=== PATIENT | female | born 1970 | race Hispanic/Latino ===

== ENCOUNTER 2017-11-19 18:30 | Emergency (ER) | payer SELFPAY ==
[2017-11-19 19:05] LABS: #Basophils 0.1 thou/uL (0.0-0.2); #Eosinphils 0.4 thou/uL (0.0-0.7); #Lymphocytes 2.6 thou/uL (1.20-3.40); #Monocytes 0.7 thou/uL (0.11-0.59); #Neutrophils 7.2 thou/uL (1.40-6.50); %Basophils 0.9 % (0.0-1.0); %Eosinophils 3.5 % (0.0-10.0); %Monocytes 6.6 % (0.0-10.0); %Neutrophils 65.1 % (42.0-75.0); Mean Corpuscular HGB CONC 34.7 g/dL (32.0-36.0); Mean Corpuscular Hemoglobin 29.6 pg (27.0-31.0); Mean Corpuscular Volume 85.4 fl (81.0-99.0); Platelet Count 279 thou/uL (130-400); RBC Distribution Width 12.6 % (11.5-14.5); Red Blood Cell (RBC) Count 5.06 mill/uL (4.20-5.40)
[2017-11-19] MEDS ORDERED: diphenhydrAMINE 50 MG/ML VIAL ONE (19:15)
[2017-11-19] MEDS ORDERED: Metoclopramide HCl 10 MG/2 ML VIAL ONE (19:15)
[2017-11-19] MEDS ORDERED: Aspirin 325 MG TAB ONE (19:15)
[2017-11-19 19:22] LABS: ALT (SGPT) 19 U/L (8-55); AST (SGOT) 18 U/L (5-34); Alkaline Phosphatase 98 U/L (40-150); Anion Gap 13 mmol/L (10-20); BUN (Urea Nitrogen) 15 mg/dL (7.0-18.7); Bilirubin, Total 0.2 mg/dL (0.2-1.2); CK (CPK) 75 U/L (29-168); Calc. Creatinine Clearance 0 mL/min (70-130); Carbon Dioxide 27 mmol/L (22-29); Chloride 105 mmol/L (98-107); Estimated GFR-MDRD 58; Globulin 3.7 g/dL (2.4-3.5); Glucose 111 mg/dL (70-105); Lipase 44 U/L (8-78); Potassium 3.6 mmol/L (3.5-5.1); Protein, Total 7.7 g/dL (6.0-8.3); Sodium 141 mmol/L (136-145)
[2017-11-19 19:27] LABS: CKMB 1.4 ng/mL (0-6.6)
[2017-11-19 19:36] LABS: Troponin I 0.015 ng/mL (< 0.028)
--- NOTE | 2017-11-19 20:18 | RAD ---
PORTABLE CHEST: 11/19/2017 PROVIDED CLINICAL HISTORY: Chest pain. COMPARISON: 03/13/2017 FINDINGS: The cardiac and mediastinal silhouette are within normal limits. The lungs appear clear. No pleural fluid or pneumothorax apparent. IMPRESSION: No evidence for an acute cardiopulmonary process. POS: [facility]
--- NOTE | 2017-11-19 20:19 | RAD ---
RIGHT HAND RADIOGRAPHS THREE VIEWS: 11/19/2017 PROVIDED CLINICAL HISTORY: Pain. COMPARISON: 02/08/2014 FINDINGS: No evidence for fracture or other acute osseous abnormality. Alignment appears anatomic. Joint spac es appear preserved. IMPRESSION: Unremarkable right hand radiographs. POS: [facility]
[2017-11-19] MEDS ORDERED: Ketorolac Tromethamine 30 MG/ML VIAL ONE (22:26)
[2017-11-19] MEDS ORDERED: HYDROcodone/Acetaminophen 10/325 mg Tablet ONE (23:43)
[2017-11-19] MEDS ORDERED: Dexamethasone 10 MG/ML VIAL ONE (23:44)
== END 2017-11-19 23:55 | disposition home or self-care (01) ==
LOC: ERS 18:30
DX: R07.89 Other chest pain (principal); I10 Essential (primary) hypertension; G43.909 Migraine, unspecified, not intractable, without status migrainosus; F31.9 Bipolar disorder, unspecified; F41.9 Anxiety disorder, unspecified; Z87.891 Personal history of nicotine dependence
CPT/HCPCS: 36415; 71045; 80053; 82553; 83690; 84484; 85025; 93005; 96365; 96375; J1100; J1200; J1885; J2765

== ENCOUNTER 2017-12-20 21:43 | Emergency (ER) | payer SELFPAY ==
[2017-12-20 22:06] LABS: #Basophils 0.1 thou/uL (0.0-0.2); #Eosinphils 0.3 thou/uL (0.0-0.7); #Lymphocytes 2.7 thou/uL (1.20-3.40); #Monocytes 0.7 thou/uL (0.11-0.59); #Neutrophils 4.9 thou/uL (1.40-6.50); %Basophils 0.9 % (0.0-1.0); %Eosinophils 3.5 % (0.0-10.0); %Lymphocytes 31.4 % (21.0-51.0); %Monocytes 7.8 % (0.0-10.0); %Neutrophils 56.3 % (42.0-75.0); Mean Corpuscular HGB CONC 34.5 g/dL (32.0-36.0); Mean Corpuscular Hemoglobin 29.3 pg (27.0-31.0); Mean Corpuscular Volume 84.8 fL (78.0-98.0); Mean Platelet Volume 7.9 fL (7.4-10.4); Platelet Count 255 thou/uL (130-400); RBC Distribution Width 12.4 % (11.5-14.5); Red Blood Cell (RBC) Count 4.77 mill/uL (4.20-5.40); White Blood Cell (WBC) Count 8.7 thou/uL (4.8-10.8)
[2017-12-20] MEDS ORDERED: Nitroglycerin 0.4 MG TAB (25 Tab Bottle) ONE (22:15)
[2017-12-20 22:26] LABS: ALT (SGPT) 26 U/L (8-55); AST (SGOT) 25 U/L (5-34); Albumin 4.3 g/dL (3.5-5.0); Alkaline Phosphatase 97 U/L (40-150); Anion Gap 17 mmol/L (10-20); BUN (Urea Nitrogen) 15 mg/dL (7.0-18.7); Bilirubin, Total 0.3 mg/dL (0.2-1.2); CK (CPK) 209 U/L (29-168); Calc. Creatinine Clearance 0 mL/min (70-130); Calcium 10.5 mg/dL (7.8-10.44); Carbon Dioxide 25 mmol/L (22-29); Chloride 104 mmol/L (98-107); Estimated GFR-MDRD 64; Globulin 3.5 g/dL (2.4-3.5); Glucose 118 mg/dL (70-105); Potassium 3.2 mmol/L (3.5-5.1); Protein, Total 7.8 g/dL (6.0-8.3); Sodium 143 mmol/L (136-145)
--- NOTE | 2017-12-20 22:27 | RAD ---
RADIOGRAPH CHEST 1 VIEW: 12/20/17 HISTORY: 47-year-old female with acute chest pain. FINDINGS: The thoracic aorta is tortuous and ectatic. There is no evidence of air space density, pneumothorax, or pulmonary edema. The lateral costophrenic angles are sharp. There is no cardiomegaly. IMPRESSION: 1) No acute cardiopulmonary findings. 2) Ectasia of thoracic aorta. little craig POS: [facility]
[2017-12-20 22:30] LABS: CKMB 2.9 ng/mL (0-6.6)
[2017-12-21 00:55] LABS: Troponin I Less than 0.010 ng/mL (< 0.028)
== END 2017-12-21 01:10 | disposition home or self-care (01) ==
LOC: ERS 21:43
DX: R07.9 Chest pain, unspecified (principal); I10 Essential (primary) hypertension; E78.5 Hyperlipidemia, unspecified; G43.909 Migraine, unspecified, not intractable, without status migrainosus; F41.9 Anxiety disorder, unspecified; F31.9 Bipolar disorder, unspecified; Z87.891 Personal history of nicotine dependence; Z79.82 Long term (current) use of aspirin
CPT/HCPCS: 36415; 71045; 80053; 82553; 84484; 85025; 93005

== ENCOUNTER 2018-01-18 10:12 | Emergency (ER) | payer SELFPAY ==
[2018-01-18] MEDS ORDERED: Ketorolac Tromethamine 30 MG/ML VIAL ONE (10:34)
[2018-01-18] MEDS ORDERED: Lorazepam 2 MG/ML VIAL ONE (10:34)
[2018-01-18] MEDS ORDERED: Fentanyl 100 MCG/2 ML VIAL ONE (10:34)
== END 2018-01-18 14:55 | disposition home or self-care (01) ==
LOC: ERS 10:12
DX: S39.012A Strain of muscle, fascia and tendon of lower back, initial encounter (principal); I10 Essential (primary) hypertension; Z79.82 Long term (current) use of aspirin; X50.1XXA Overexertion from prolonged static or awkward postures, initial encounter
CPT/HCPCS: 96374; 96375; J1885; J2060; J3010

== ENCOUNTER 2018-01-18 17:04 | Emergency (ER) | payer SELFPAY | END 2018-01-18 18:01 | disposition home or self-care (01) | LOC: ERS 17:04 | DX: S39.012A Strain of muscle, fascia and tendon of lower back, initial encounter (principal); Z02.89 Encounter for other administrative examinations; E78.5 Hyperlipidemia, unspecified; I10 Essential (primary) hypertension; G43.909 Migraine, unspecified, not intractable, without status migrainosus; F41.9 Anxiety disorder, unspecified; F31.9 Bipolar disorder, unspecified; Z87.891 Personal history of nicotine dependence; X58.XXXA Exposure to other specified factors, initial encounter | CPT/HCPCS: 99283 ==

== ENCOUNTER 2018-05-21 21:12 | Inpatient (IN) | payer SELFPAY ==
[~2018-05-21 21:12] MED LIST: ISOVUE-370 76%-LOCM 1 ML ONE
[2018-05-21 21:35] LABS: #Basophils 0.1 thou/uL (0.0-0.2); #Eosinphils 0.2 thou/uL (0.0-0.7); #Lymphocytes 1.6 thou/uL (1.20-3.40); #Monocytes 0.7 thou/uL (0.11-0.59); #Neutrophils 5.2 thou/uL (1.40-6.50); %Basophils 0.9 % (0.0-1.0); %Eosinophils 2.3 % (0.0-10.0); %Lymphocytes 20.4 % (21.0-51.0); %Monocytes 9.4 % (0.0-10.0); Hemoglobin 15.7 g/dL (12.0-16.0); Mean Corpuscular HGB CONC 32.7 g/dL (32.0-36.0); Mean Corpuscular Hemoglobin 28.6 pg (27.0-31.0); Mean Corpuscular Volume 87.4 fL (78.0-98.0); Mean Platelet Volume 8.1 fL (7.4-10.4); Platelet Count 291 thou/uL (130-400); RBC Distribution Width 12.2 % (11.5-14.5); Red Blood Cell (RBC) Count 5.48 mill/uL (4.20-5.40); White Blood Cell (WBC) Count 7.8 thou/uL (4.8-10.8)
--- NOTE | 2018-05-21 21:41 | CT ---
CT HEAD WITHOUT CONTRAST: 05/21/18 Multiple axial tomograms obtained through the head without IV enhancement. INDICATION: Stroke alert, left sided weakness. No mass or edema. No evidence of hemorrhage. There is evidence of mild chronic ischemic white matter change which is more prominent than expected for this patient's age. No evidence of acute cortical infarct. IMPRESSION: No evidence of acute cortical infarct. There are mild chronic ischemic changes. Findings relayed to Dr. Domingo at 9:35 p.m. POS: [facility]
[2018-05-21 21:42] LABS: INR-International Normal Ratio 0.9
[2018-05-21 21:44] LABS: PTT 22.1 SEC (22.9-36.1)
[2018-05-21 21:49] LABS: ALT (SGPT) 21 U/L (8-55); AST (SGOT) 21 U/L (5-34); Albumin 4.2 g/dL (3.5-5.0); Alkaline Phosphatase 97 U/L (40-150); Anion Gap 15 mmol/L (10-20); BUN (Urea Nitrogen) 16 mg/dL (7.0-18.7); Bilirubin, Total 0.3 mg/dL (0.2-1.2); Calc. Creatinine Clearance 0 mL/min (70-130); Calcium 9.9 mg/dL (7.8-10.44); Carbon Dioxide 24 mmol/L (22-29); Chloride 104 mmol/L (98-107); Estimated GFR-MDRD 71; Globulin 3.9 g/dL (2.4-3.5); Glucose 96 mg/dL (70-105); Protein, Total 8.1 g/dL (6.0-8.3); Sodium 139 mmol/L (136-145)
[2018-05-21 21:53] LABS: CKMB 1.9 ng/mL (0-6.6); Troponin I 0.014 ng/mL (< 0.028)
--- NOTE | 2018-05-21 22:04 | CT ---
CTA HEAD: 05/21/18 Multiple axial tomograms obtained through the head following a cerebral angio protocol with multiplan ar reconstructions and 3D postprocessing. INDICATIONS: Stroke alert. Left sided weakness. FINDINGS: The intracranial internal carotid arteries are patent. There is mild atherosclerotic calcifications s een in the cavernous portions of both ICAs. There is mild luminal narrowing in the cavernous portion of the left ICA compared to the right. Both anterior cerebral arteries are patent and symmetric. The M1 segment of both middle cerebral arteries appear patent and symmetric with no focal stenosis of occlusion. M2 and M3 branches appear symmetric. Basilar artery is patent. Posterior cerebrals appear symmetric. IMPRESSION: Atherosclerotic changes in both cavernous ICA with mild luminal narrowing in the cavernous left ICA. Otherwise, no evidence of focal stenosis or occlusion. CTA NECK: Multiple axial tomograms are obtained through the neck following angio protocol with multiplanar dee nstruction and 3D postprocessing. INDICATIONS: Stroke protocol with left sided weakness. No evidence of atherosclerosis or stenosis at the origin of the arch vessels. Both common carotids appear unremarkable. Mild calcified plaque seen at both bulbs. There is no steno sis seen in either internal carotid artery. The vertebral arteries are patent and symmetric. IMPRESSION: Mild atherosclerotic changes at both bulbs. No evidence of significant stenosis. POS: [facility]
--- NOTE | 2018-05-21 22:08 | RAD ---
PORTABLE CHEST: 05/21/18 HISTORY: Possible stroke. Lungs are clear. Heart and mediastinum unremarkable. Vascular markings normal. IMPRESSION: No acute finding. POS: [facility]
[2018-05-21] MEDS ORDERED: Aspirin 325 MG TAB ONE (22:50)
[2018-05-21] MEDS ORDERED: niCARdipine 20MG In NaCl 0 MG/0 ML BAG ONE (22:50)
[2018-05-22] MEDS ORDERED: Aspirin 300 MG Suppository ONE (01:48)
[2018-05-22] MEDS ORDERED: Diabetic Tussin 200 MG/10 ML UDCUP PO PRN (06:57)
[2018-05-22] MEDS ORDERED: Artificial Tears 18 DROP/0.9 ML EA EYE PRN (06:57)
[2018-05-22] MEDS ORDERED: Loratadine 10 MG TAB PO PRN (06:57)
[2018-05-22] MEDS ORDERED: Senokot S 8.6-50 MG TAB PO PRN (06:57)
[2018-05-22] MEDS ORDERED: Loperamide HCl 2 MG CAP PO PRN (06:57)
[2018-05-22] MEDS ORDERED: Ondansetron PF 4 MG/2 ML Vial IVP PRN (06:57)
[2018-05-22] MEDS ORDERED: Eucerin (Mineral Oil/Petrolatum,White) 30 gm Jar TOP PRN (06:57)
[2018-05-22] MEDS ORDERED: Sodium Chloride 0.65% Nasal 44 ML BOT EA NARE PRN (06:57)
[2018-05-22] MEDS ORDERED: Bisacodyl 5 MG TAB PO PRN (06:57)
[2018-05-22] MEDS ORDERED: Ondansetron ODT 4 MG TAB PO PRN (06:57)
[2018-05-22] MEDS ORDERED: Cepastat Lozenges 1 LOZ PO PRN (06:57)
--- NOTE | 2018-05-22 08:14 | CON ---
DATE OF CONSULTATION: 05/22/2018. CONSULTING PHYSICIAN: Hospitalist Service. IMPRESSION: 1. Probable brainstem ischemic event. 2. Hypertension. 3. Tobacco use. PLAN: 1. Aspirin. 2. Statin. 3. MRI of the brain. 4. Echocardiogram. 5. Reassess swallow function. HISTORY OF PRESENT ILLNESS: Ms. Arreaga is a 48-year-old woman who came in with complaints of left-s ided weakness. She also noted that she was having some dizziness and nausea. There was some occipit al headache present as well. Her initial CT scan of the brain did not show any evidence of a hemorrh age. CT angiogram showed no significant carotid or vertebral stenosis. She denies any past history of similar events. She was not taking any medication for her blood pressure. She was markedly hyper tensive. PAST MEDICAL HISTORY: Otherwise, negative. FAMILY HISTORY: Noncontributory. SOCIAL HISTORY: She denies illicit drug use. MEDICATIONS: None. REVIEW OF SYSTEMS: No chest pain, shortness of breath, lateralized numbness, double vision. PHYSICAL EXAMINATION: GENERAL: She is a well-nourished middle-aged woman, in no distress. VITAL SIGNS: Pulse 83 and in sinus rhythm. Diastolic pressures have been running around 110, respir ations 16. HEENT: Her left eye appeared a bit proptotic. She had some ptosis of the right eyelid. There is so me conjunctival injection on the right. Oropharynx is clear. Cranium normocephalic and atraumatic. NECK: Supple. EXTREMITIES: No cyanosis, clubbing or edema. NEUROLOGIC: She was alert and cooperative. Her speech was mildly dysarthric. She had a left facial droop. There is no facial sensation, asymmetry. Eye movements were intact. No nystagmus was noted . Motor exam showed antigravity strength in the left arm and leg, but movements were sluggish. Sens ation was intact in the extremities as well. Gait was not tested. No abnormal movements were seen. LABORATORY STUDIES: Unremarkable CBC and serum chemistry. SUMMARY: This is a middle-aged woman with untreated hypertension, appears to have had a stroke resul ting in left-sided weakness along with some dizziness and nausea. I suspect that she has had a small vessel stroke in the brainstem. We can get her blood pressure under control and start antiplatelet and statin therapy.
[2018-05-22] MEDS: hydrALAZINE 20 MG/ML VIAL SLOW IVP PRN (09:23)
[2018-05-22] MEDS: Lisinopril 20 MG TAB PO SCH ×2 (09:28→20:18)
[2018-05-22] MEDS: Enoxaparin Sodium 40 MG/0.4 ML SYRINGE SC SCH (09:28)
[2018-05-22] MEDS: Divalproex Sodium DR 500 MG TAB PO SCH (09:29)
[2018-05-22] MEDS: Aspirin 325 mg Enteric Coated Tablet PO SCH (09:29)
[2018-05-22] MEDS: Famotidine 20 MG TAB PO SCH ×2 (09:29→20:18)
[2018-05-22] MEDS: Gemfibrozil 600 MG TAB PO SCH ×2 (09:29→17:13)
--- NOTE | 2018-05-22 10:41 | HP ---
PRIMARY CARE PHYSICIAN: [facility]. REASON FOR ADMISSION: Acute left-sided weakness. HISTORY OF PRESENT ILLNESS: A 48-year-old female who has underlying history of hypertension , dyslipidemia, and migraine headache, who presented to emergency room with a complaint of left upper and lower extremity weakness, dizziness, slurred speech which started yesterday and she presented la te in the evening in the emergency room. She was having left upper and lower extremity weakness as w ell as dysarthria when she presented to emergency room, but because of late presentation, she was not a candidate for any intervention. When she presented to emergency room, she was hypertensive. The patient reports that she cannot afford medication and she was not taking medication for the last xiomara ral days. She denies any chest pain, palpitations. She denies any diplopia, but she noticed that he r right eye was difficult to open completely and because of that she was feeling blurred vision and s ometimes double vision. Patient denies any fall. She denies any headaches. She denies any nausea, vomiting. She denies any UTI or upper or lower respiratory symptoms. In the emergency room, the patient had a CT brain which was negative for any acute intracranial proce ss. CT angiography showed cavernous part of internal carotid artery atherosclerotic changes. The pa wei was given aspirin 325 mg. Subsequently, she was admitted to telemetry floor. REVIEW OF SYSTEMS: The following complete review of systems was negative, unless otherwise mentioned in the HPI or below: Constitutional: Weight loss or gain, ability to conduct usual activities. Skin: Rash, itching. Eyes: Double vision, pain. ENT/Mouth: Nose bleeding, neck stiffness, pain, tenderness. Cardiovascular: Palpitations, dyspnea on exertion, orthopnea. Respiratory: Shortness of breath, wheezing, cough, hemoptysis, fever or night sweats. Gastrointestinal: Poor appetite, abdominal pain, heartburn, nausea, vomiting, constipation, or diarr hea. Genitourinary: Urgency, frequency, dysuria, nocturia. Musculoskeletal: Pain, swelling. Neurologic/Psychiatric: Anxiety, depression. Allergy/Immunologic: Skin rash, bleeding tendency. Please see my HPI for pertinent positive and negative. All other review of system reviewed and negat shahla except as mentioned in the HPI. PAST MEDICAL HISTORY: Hypertension, dyslipidemia, migraine headache, medication noncompliance. PAST SURGICAL HISTORY: Left ankle surgery, tubal ligation. PAST PSYCHIATRIC HISTORY: Anxiety, depression, and bipolar disorder. SOCIAL HISTORY: Patient lives at home. She smokes about 1 pack per day. She denies any other illic it drug abuse. FAMILY HISTORY: No family history of coronary artery disease, stroke or cancer. ALLERGIES: No known drug allergy. CURRENT HOME MEDICATIONS: The patient is not taking any prescribed or non-prescribed medication. As per 2017 hospital record, the patient is on aspirin 81 mg p.o. daily, Depakote 500 mg daily, lisinop ril 20 mg b.i.d., sumatriptan 25 mg p.o. daily p.r.n., Lipitor 40 mg p.o. at bedtime, Lopid 600 mg p. o. b.i.d. EMERGENCY ROOM COURSE: Reviewed. PHYSICAL EXAMINATION: VITAL SIGNS: Currently, blood pressure 173/125, pulse 75, respiratory rate 14, temperature 98.1, sat uration 100% on room air, weight 86.1 kilograms. GENERAL: Patient is currently alert, awake, hypertensive, no obvious acute distress. HEENT: Head: Normocephalic, atraumatic. Eyes: Right eye ptosis noted and conjunctival congestion noted. Pupils are round and reactive to light. Extraocular muscle intact. No nystagmus. NECK: Supple, no JVD, no thyromegaly, no carotid bruit. LUNGS: Clear to auscultation without any rhonchi or rales. CARDIAC: S1, S2 regular. No murmur, no gallop, no rub. ABDOMEN: Soft, bowel sounds present, nontender, nondistended. No organomegaly, no mass, no suprapub ic tenderness. EXTREMITIES: Upper extremity, passive movement of all joints are normal. Lower extremity, passive m ovement of all joints are normal. SKIN: No skin rash. HEMATOLOGIC: No lymphadenopathy. PSYCHIATRIC: Normal affect. NEUROLOGIC: The patient is alert, oriented x3. Patient does have left-sided facial droop, left uppe r and lower extremity weakness with power on the left side 4/5 in both upper and lower extremities. Sensation intact. Reflexes symmetrical. Plantar left-sided extensor. SIGNIFICANT LABORATORY DATA AND IMAGING: EKG showing normal sinus rhythm, nonspecific ST-T changes. CT brain based on my review, mild chronic ischemic white matter changes, but no acute infarction not ed. CT angiography showed atherosclerotic changes in the cavernous portion of the internal carotid a rtery as well as extracranial internal carotid artery without any obstruction, atherosclerotic change s noted in the carotid bulb. Chest x-ray based on my review, no acute cardiopulmonary process. CBC: WBC 7.8, hemoglobin 15.7, platelet 291. INR 0.9. BMP: Sodium 139, potassium 4.0, chloride 104, c arbon dioxide 24, BUN 16, creatinine 0.85, glucose 96, calcium 9.9. LFT: AST 21, ALT 21, alkaline p hosphatase is 97, albumin 4.2, CK 75, CK-MB 1.9, troponin 0.014. ASSESSMENT AND PLAN: 1. Acute ischemic cerebrovascular accident, suspecting brainstem ischemic cerebrovascular accident. This patient has ptosis on the right eye as well as left upper and lower extremity weakness as well as dysarthria. Currently, CT brain is not showing any acute process. The patient does have atherosc lerotic changes in carotid bulb bilaterally as well as atherosclerotic changes and mild luminal narro wing in the cavernous portion of the internal carotid artery. Patient will need MRI. We will check lipid profile, homocysteine for risk stratification. The patient has failed swallow evaluation and t hat is why we will continue aspirin rectally. PT, OT and speech therapy will be consulted. Entire s troke team including Neurology will be consulted. We will continue Lipitor and Lopid as per previous home medication if the patient able to take p.o., we will also start lisinopril 20 mg p.o. b.i.d. W e will try to keep her blood pressure around 170 to 180s. We will use p.r.n. basis blood pressure me dication. As the patient is n.p.o. and that is why we will start NS at 50 mL per hour. 2. Hypertension, uncontrolled due to medication noncompliance. Currently, the patient is n.p.o. and that is why we will try to use hydralazine on p.r.n. basis for high blood pressure, otherwise once t he patient is able to take p.o., then we will resume lisinopril 20 mg p.o. b.i.d. 3. Dyslipidemia. Check lipid profile tomorrow and continue Lipitor 40 mg p.o. at bedtime and Lopid 600 mg twice daily based on lipid profile result and the patient able to take p.o. 4. Medication noncompliance. Education given. 5. Tobacco abuse disorder. Smoking cessation counseling given. We will use nicotine patch if neede d while in hospital. 6. Anxiety and depression, bipolar disorder. We will continue Depakote 500 mg p.o. daily. 7. Deep venous thrombosis prophylaxis. Lovenox 40 mg subcu daily. 8. Gastrointestinal prophylaxis, Pepcid 20 mg p.o. b.i.d. 9. CODE STATUS: The patient is FULL CODE. Patient does not have any surrogate decision maker. Disposition plan based on clinical course. We are expecting patient's stay in hospital more than 2 m idnights. Plan of care discussed with the patient in detail.
--- NOTE | 2018-05-22 11:19 | MRI ---
MRI BRAIN WITHOUT CONTRAST: History: TIA Comparison: CT brain prior day. FINDINGS: On the diffusion weighted imaging sequence there is acute infarction within the posterior limb right internal capsule. This is confirmed on the AC map. No other infarction is appreciated. On the susceptibility weighted imaging sequence, there are no abnormal areas of hemorrhage. Flow voids are maintained. No underlying shift. No mass effect. Mild to moderate chronic microvascular ischemic changes. Globes are normal. IMPRESSION: 1. Small acute infarction posterior limb right internal capsule POS: [facility]
[2018-05-22] MEDS: Sodium Chloride 0.9% 1,000 ML IV SCH (12:25)
[2018-05-22] MEDS: Atorvastatin Calcium 40 MG TAB PO SCH (20:18)
[2018-05-23] MEDS: hydrALAZINE 20 MG/ML VIAL SLOW IVP PRN (04:18)
[2018-05-23 04:23] LABS: Anion Gap 16 mmol/L (10-20); BUN (Urea Nitrogen) 17 mg/dL (7.0-18.7); Calc. Creatinine Clearance 128 mL/min (70-130); Calcium 9.7 mg/dL (7.8-10.44); Carbon Dioxide 22 mmol/L (22-29); Cardiac Risk 5.2 (Less than 4.5); Chloride 108 mmol/L (98-107); Cholesterol 206 mg/dl (< 200 Desired); Estimated GFR-MDRD 73; Glucose 98 mg/dL (70-105); HDL Cholesterol 40 mg/dL (>60 Neg Risk); LDL Cholesterol, Calculated 117 mg/dL; Potassium 3.7 mmol/L (3.5-5.1); Sodium 142 mmol/L (136-145); Triglycerides 243 mg/dL (Less than 150)
[2018-05-23] MEDS: Sodium Chloride 0.9% 1,000 ML IV SCH (04:56)
[2018-05-23 05:29] LABS: Band 3 % (5-11); Eosinophils 4 % (0-10); Hemoglobin 13.6 g/dL (12.0-16.0); Lymphocytes 33 % (21-51); MDiff Complete? YES; Mean Corpuscular HGB CONC 33.2 g/dL (32.0-36.0); Mean Corpuscular Hemoglobin 28.8 pg (27.0-31.0); Mean Corpuscular Volume 86.7 fL (78.0-98.0); Mean Platelet Volume 8.4 fL (7.4-10.4); Monocytes 16 % (0-10); Neutrophil 40 % (42-75); Platelet Count 258 thou/uL (130-400); RBC Distribution Width 12.3 % (11.5-14.5); Reactive Lymphocytes 4 % (0-10); Red Blood Cell (RBC) Count 4.72 mill/uL (4.20-5.40); White Blood Cell (WBC) Count 4.8 thou/uL (4.8-10.8)
--- NOTE | 2018-05-23 08:44 | PDOC.PN ---
- Subjective Encounter Start Date: 05/23/18 Encounter Start Time: 07:00 -: old records requested/rev pt now eating soft diet, still has weakness on left side Patient seen and examined. No new complaints. No overnight events - Objective Resuscitation Status: Resuscitation Status FULL:Full Resuscitation MAR Reviewed: Yes Vital Signs & Weight: Vital Signs (12 hours) Temp Pulse Resp BP BP Pulse Ox 05/23/18 04:51 86 149/61 H 05/23/18 03:56 97.7 F 75 16 180/105 H 98 05/22/18 23:15 98.6 F 86 16 170/107 H 98 Weight Weight 217 lb 9.6 oz I&O: 05/22/18 05/23/18 05/24/18 06:59 06:59 06:59 Intake Total 0 1000 Output Total 200 1550 Balance -200 -550 Result Diagrams: 05/23/18 03:22 05/23/18 03:22 Radiology Reviewed by me: Yes (MRI brain reviewed) EKG Reviewed by me: Yes (NSR) Phys Exam - Physical Examination Constitutional: NAD HEENT: PERRLA, moist MMs, sclera anicteric right side ptosis Neck: no JVD, supple Respiratory: no wheezing, no rales, no rhonchi Cardiovascular: RRR, no significant murmur, no rub Gastrointestinal: soft, non-tender, no distention, positive bowel sounds Musculoskeletal: no edema, pulses present Neurological: normal sensation left side 4/5 weakness Lymphatic: no nodes Psychiatric: normal affect, A&O x 3 Skin: no rash, normal turgor Dx/Plan (1) Acute CVA (cerebrovascular accident) Code(s): I63.9 - CEREBRAL INFARCTION, UNSPECIFIED Status: Acute Comment: due to small infraction in right posterior limb of internal capsule, likely ischemic (2) Dyslipidemia Code(s): E78.5 - HYPERLIPIDEMIA, UNSPECIFIED Status: Chronic Comment: on statin therapy (3) HTN (hypertension) Code(s): I10 - ESSENTIAL (PRIMARY) HYPERTENSION Status: Chronic Qualifiers: (4) Noncompliance with medications Code(s): Z91.14 - PATIENT'S OTHER NONCOMPLIANCE WITH MEDICATION REGIMEN Status : Chronic (5) Tobacco abuse Code(s): Z72.0 - TOBACCO USE Status: Chronic Comment: counselled to avoid smoking - Plan cont current plan of care, 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 Review of Systems - Review of Systems Constitutional: negative: fever, chills, sweats, weakness, malaise, other Eyes: negative: Pain, Vision Change, Conjunctivae Inflammation, Eyelid Inflammation, Redness, Other ENT: negative: Ear Pain, Ear Discharge, Nose Pain, Nose Discharge, Nose Congestion, Mouth Pain, Mouth Swelling, Throat Pain, Throat Swelling, Other Respiratory: negative: Cough, Dry, Shortness of Breath, Hemoptysis, SOB with Excertion, Pleuritic Pain, Sputum, Wheezing Cardiovascular: negative: chest pain, palpitations, orthopnea, paroxysmal nocturnal dyspnea, edema, light headedness, other Gastrointestinal: negative: Nausea, Vomiting, Abdominal Pain, Diarrhea, Constipation, Melena, Hematochezia, Other Genitourinary: negative: Dysuria, Frequency, Incontinence, Hematuria, Retention , Other Musculoskeletal: negative: Neck Pain, Shoulder Pain, Arm Pain, Back Pain, Hand Pain, Leg Pain, Foot Pain, Other Skin: negative: Rash, Lesions, Ramses, Bruising, Other Neurological: Weakness. negative: Numbness, Incoordination, Change in Speech, Confusion, Seizures, Other - Medications/Allergies Allergies/Adverse Reactions: Allergies Allergy/AdvReac Type Severity Reaction Status Date / Time No Known Drug Allergies Allergy Verified 05/22/18 05:01 Medications: Current Medications Acetaminophen (Tylenol) 650 mg PO Q4H PRN PRN Reason: Headache/Fever/Mild Pain (1-3) Hydrocodone Bitart/Acetaminophen ([place] 5/325) 1 tab PO Q4H PRN PRN Reason: Moderate Pain (4-6) Artificial Tears (Tears Naturale) 2 drop EA EYE PRN PRN PRN Reason: Dry Eyes Aspirin (Ecotrin) 325 mg PO DAILY [facility] Last Admin: 05/22/18 09:29 Dose: 325 mg Aspirin (Aspirin) 300 mg MO DAILY [facility] Atorvastatin Calcium (Lipitor) 40 mg PO HS [facility] Last Admin: 05/22/18 20:18 Dose: 40 mg Bisacodyl (Dulcolax) 10 mg PO DAILYPRN PRN PRN Reason: Constipation Divalproex Sodium (Depakote) 500 mg PO DAILY [facility] Last Admin: 05/22/18 09:29 Dose: 500 mg Enoxaparin Sodium (Lovenox) 40 mg SC 0900 [facility] Last Admin: 05/22/18 09:28 Dose: 40 mg Famotidine (Pepcid) 20 mg PO BID [facility] Last Admin: 05/22/18 20:18 Dose: 20 mg Gemfibrozil (Lopid) 600 mg PO BID-AC [facility] Last Admin: 05/22/18 17:13 Dose: 600 mg Guaifenesin (Robitussin Sf) 200 mg PO Q4H PRN PRN Reason: Cough Hydralazine HCl (Apresoline) 10 mg SLOW IVP Q4H PRN PRN Reason: SBP > 180 and HR < 70 Last Admin: 05/23/18 04:18 Dose: 10 mg Sodium Chloride (Normal Saline 0.9%) 1,000 mls @ 50 mls/hr IV .Q20H [facility] Last Admin: 05/23/18 04:56 Dose: Not Given Lisinopril (Zestril) 20 mg PO BID [facility] Last Admin: 05/22/18 20:18 Dose: 20 mg Loperamide HCl (Imodium) 2 mg PO PRN PRN PRN Reason: Diarrhea/Loose Stools Loratadine (Claritin) 10 mg PO DAILYPRN PRN PRN Reason: Sinus Symptoms Mineral Oil/White Petrolatum (Eucerin Cream) 0 gm TOP BIDPRN PRN PRN Reason: Dry Skin Ondansetron HCl (Zofran Odt) 4 mg PO Q6H PRN PRN Reason: Nausea/Vomiting Ondansetron HCl (Zofran) 4 mg IVP Q6H PRN PRN Reason: Nausea/Vomiting Senna/Docusate Sodium (Senokot S) 2 tab PO BID PRN PRN Reason: Constipation Sodium Chloride ([place] Nasal [place] 0.65%) 0 ml EA NARE QIDPRN PRN PRN Reason: Nasal Congestion Sodium Chloride (Flush - Normal Saline) 10 ml IVF PRN PRN PRN Reason: Saline Flush Throat Lozenges (Cepastat Lozenges) 1 ronald PO Q2H PRN PRN Reason: Sore Throat Zolpidem Tartrate (Ambien) 5 mg PO HSPRN PRN PRN Reason: Insomnia
[2018-05-23] MEDS: Lisinopril 20 MG TAB PO SCH ×2 (09:46→21:01)
[2018-05-23] MEDS: Gemfibrozil 600 MG TAB PO SCH ×2 (09:47→17:34)
[2018-05-23] MEDS: Famotidine 20 MG TAB PO SCH ×2 (09:47→20:59)
[2018-05-23] MEDS: Aspirin 325 mg Enteric Coated Tablet PO SCH (09:47)
[2018-05-23] MEDS: Divalproex Sodium DR 500 MG TAB PO SCH (09:47)
[2018-05-23] MEDS: Enoxaparin Sodium 40 MG/0.4 ML SYRINGE SC SCH (09:48)
[2018-05-23] MEDS: Aspirin 300 MG Suppository PR SCH (09:48)
[2018-05-23] MEDS: Atorvastatin Calcium 40 MG TAB PO SCH (20:59)
[2018-05-23] MEDS: HYDROcodone/Acetaminophen 5/325 mg Tablet PO PRN (22:07)
[2018-05-23] MEDS: Zolpidem Tartrate 5 MG TAB PO PRN (22:15)
[2018-05-24] MEDS: Sodium Chloride 0.9% 1,000 ML IV SCH ×2 (01:01→20:51)
[2018-05-24] MEDS: Enoxaparin Sodium 40 MG/0.4 ML SYRINGE SC SCH (09:32)
[2018-05-24] MEDS: Gemfibrozil 600 MG TAB PO SCH ×2 (09:32→18:12)
[2018-05-24] MEDS: Aspirin 325 mg Enteric Coated Tablet PO SCH (09:32)
[2018-05-24] MEDS: Lisinopril 20 MG TAB PO SCH ×2 (09:32→20:01)
[2018-05-24] MEDS: Aspirin 300 MG Suppository PR SCH (09:33)
[2018-05-24] MEDS: Divalproex Sodium DR 500 MG TAB PO SCH (09:33)
[2018-05-24] MEDS: Famotidine 20 MG TAB PO SCH ×2 (09:33→20:06)
--- NOTE | 2018-05-24 10:08 | PDOC.PN ---
- Subjective Encounter Start Date: 05/24/18 Encounter Start Time: 07:00 Patient seen and examined. No new complaints. No overnight events - Objective Resuscitation Status: Resuscitation Status FULL:Full Resuscitation MAR Reviewed: Yes Vital Signs & Weight: Vital Signs (12 hours) Temp Pulse Resp BP BP BP Pulse Ox 05/24/18 09:32 184/115 H 05/24/18 07:51 98.1 F 72 16 135/95 H 97 05/24/18 03:44 97.8 F 77 17 157/108 H 95 05/24/18 00:49 95 05/24/18 00:00 98.3 F 71 16 158/113 H 97 Weight Admit Weight 217 lb Weight 212 lb 12.8 oz I&O: 05/23/18 05/24/18 05/25/18 06:59 06:59 06:59 Intake Total 1000 1700 Output Total 1550 1000 Balance -550 700 Result Diagrams: 05/23/18 03:22 05/23/18 03:22 EKG Reviewed by me: Yes (nsr) Phys Exam - Physical Examination Constitutional: NAD HEENT: PERRLA, moist MMs, sclera anicteric Neck: no JVD, supple Respiratory: no wheezing, no rales, no rhonchi Cardiovascular: RRR, no significant murmur, no rub Gastrointestinal: soft, non-tender, no distention, positive bowel sounds Musculoskeletal: no edema, pulses present mild left side weakness Lymphatic: no nodes Psychiatric: normal affect, A&O x 3 Skin: no rash, normal turgor Dx/Plan (1) Acute CVA (cerebrovascular accident) Code(s): I63.9 - CEREBRAL INFARCTION, UNSPECIFIED Status: Acute Comment: due to small infraction in right posterior limb of internal capsule, likely ischemic (2) Dyslipidemia Code(s): E78.5 - HYPERLIPIDEMIA, UNSPECIFIED Status: Chronic Comment: on statin therapy (3) HTN (hypertension) Code(s): I10 - ESSENTIAL (PRIMARY) HYPERTENSION Status: Chronic Qualifiers: (4) Noncompliance with medications Code(s): Z91.14 - PATIENT'S OTHER NONCOMPLIANCE WITH MEDICATION REGIMEN Status : Chronic (5) Tobacco abuse Code(s): Z72.0 - TOBACCO USE Status: Chronic Comment: counselled to avoid smoking - Plan cont current plan of care, plan discussed w/ family, PT/OT, social human services assistants * continue stroke team evaluation * today echo done, result pending * continue PT/OT * discussed with and updated plan * she will benefit from rehab but as she has no insurance, that would be challenging * medication reviewed as below * symptomatic treatment. Review of Systems - Review of Systems Constitutional: negative: fever, chills, sweats, weakness, malaise, other Eyes: negative: Pain, Vision Change, Conjunctivae Inflammation, Eyelid Inflammation, Redness, Other ENT: negative: Ear Pain, Ear Discharge, Nose Pain, Nose Discharge, Nose Congestion, Mouth Pain, Mouth Swelling, Throat Pain, Throat Swelling, Other Respiratory: negative: Cough, Dry, Shortness of Breath, Hemoptysis, SOB with Excertion, Pleuritic Pain, Sputum, Wheezing Cardiovascular: negative: chest pain, palpitations, orthopnea, paroxysmal nocturnal dyspnea, edema, light headedness, other Gastrointestinal: negative: Nausea, Vomiting, Abdominal Pain, Diarrhea, Constipation, Melena, Hematochezia, Other Genitourinary: negative: Dysuria, Frequency, Incontinence, Hematuria, Retention , Other Musculoskeletal: negative: Neck Pain, Shoulder Pain, Arm Pain, Back Pain, Hand Pain, Leg Pain, Foot Pain, Other Skin: negative: Rash, Lesions, Ramses, Bruising, Other Neurological: Weakness. negative: Numbness, Incoordination, Change in Speech, Confusion, Seizures, Other - Medications/Allergies Allergies/Adverse Reactions: Allergies Allergy/AdvReac Type Severity Reaction Status Date / Time No Known Drug Allergies Allergy Verified 05/22/18 05:01 Medications: Current Medications Acetaminophen (Tylenol) 650 mg PO Q4H PRN PRN Reason: Headache/Fever/Mild Pain (1-3) Hydrocodone Bitart/Acetaminophen ([place] 5/325) 1 tab PO Q4H PRN PRN Reason: Moderate Pain (4-6) Last Admin: 05/23/18 22:07 Dose: 1 tab Artificial Tears (Tears Naturale) 2 drop EA EYE PRN PRN PRN Reason: Dry Eyes Aspirin (Ecotrin) 325 mg PO DAILY [facility] Last Admin: 05/24/18 09:32 Dose: 325 mg Aspirin (Aspirin) 300 mg [place] DAILY [facility] Last Admin: 05/24/18 09:33 Dose: Not Given Atorvastatin Calcium (Lipitor) 40 mg PO HS [facility] Last Admin: 05/23/18 20:59 Dose: 40 mg Bisacodyl (Dulcolax) 10 mg PO DAILYPRN PRN PRN Reason: Constipation Divalproex Sodium (Depakote) 500 mg PO DAILY [facility] Last Admin: 05/24/18 09:33 Dose: 500 mg Enoxaparin Sodium (Lovenox) 40 mg SC 0900 [facility] Last Admin: 05/24/18 09:32 Dose: 40 mg Famotidine (Pepcid) 20 mg PO BID [facility] Last Admin: 05/24/18 09:33 Dose: 20 mg Gemfibrozil (Lopid) 600 mg PO BID-AC [facility] Last Admin: 05/24/18 09:32 Dose: 600 mg Guaifenesin (Robitussin Sf) 200 mg PO Q4H PRN PRN Reason: Cough Hydralazine HCl (Apresoline) 10 mg SLOW IVP Q4H PRN PRN Reason: SBP > 180 and HR < 70 Last Admin: 05/23/18 04:18 Dose: 10 mg Sodium Chloride (Normal Saline 0.9%) 1,000 mls @ 50 mls/hr IV .Q20H [facility] Last Admin: 05/24/18 01:01 Dose: Not Given Lisinopril (Zestril) 20 mg PO BID [facility] Last Admin: 05/24/18 09:32 Dose: 20 mg Loperamide HCl (Imodium) 2 mg PO PRN PRN PRN Reason: Diarrhea/Loose Stools Loratadine (Claritin) 10 mg PO DAILYPRN PRN PRN Reason: Sinus Symptoms Mineral Oil/White Petrolatum (Eucerin Cream) 0 gm TOP BIDPRN PRN PRN Reason: Dry Skin Ondansetron HCl (Zofran Odt) 4 mg PO Q6H PRN PRN Reason: Nausea/Vomiting Ondansetron HCl (Zofran) 4 mg IVP Q6H PRN PRN Reason: Nausea/Vomiting Senna/Docusate Sodium (Senokot S) 2 tab PO BID PRN PRN Reason: Constipation Sodium Chloride ([place] Nasal [place] 0.65%) 0 ml EA NARE QIDPRN PRN PRN Reason: Nasal Congestion Sodium Chloride (Flush - Normal Saline) 10 ml IVF PRN PRN PRN Reason: Saline Flush Throat Lozenges (Cepastat Lozenges) 1 ronald PO Q2H PRN PRN Reason: Sore Throat Zolpidem Tartrate (Ambien) 5 mg PO HSPRN PRN PRN Reason: Insomnia Last Admin: 05/23/18 22:15 Dose: 5 mg
[2018-05-24] MEDS: HYDROcodone/Acetaminophen 5/325 mg Tablet PO PRN ×2 (12:15→22:50)
[2018-05-24] MEDS: Atorvastatin Calcium 40 MG TAB PO SCH (20:01)
[2018-05-25] MEDS: Zolpidem Tartrate 5 MG TAB PO PRN (03:21)
--- NOTE | 2018-05-25 08:21 | RAD ---
LEFT KNEE 4 VIEWS: HISTORY: A 48-year-old female with a history of knee injury following a fall onto knees. FINDINGS: No evidence for acute fracture or dislocation. Minimal soft tissue fullness over the prepatellar reg ion superficially. IMPRESSION: No fracture or dislocation. POS: RENATO
--- NOTE | 2018-05-25 08:22 | RAD ---
RIGHT KNEE 4 VIEWS: HISTORY: A 48-year-old female with a history of right knee injury following fall onto knees. FINDINGS: Mild increased soft tissue thickness over the prepatellar region. No evidence for acute fracture or dislocation. IMPRESSION: No fracture or dislocation. POS: NAVARRO
[2018-05-25] MEDS: Lisinopril 20 MG TAB PO SCH ×2 (09:24→20:22)
[2018-05-25] MEDS: Enoxaparin Sodium 40 MG/0.4 ML SYRINGE SC SCH (09:24)
[2018-05-25] MEDS: Famotidine 20 MG TAB PO SCH ×2 (09:25→20:22)
[2018-05-25] MEDS: Aspirin 325 mg Enteric Coated Tablet PO SCH (09:25)
[2018-05-25] MEDS: Divalproex Sodium DR 500 MG TAB PO SCH (09:25)
[2018-05-25] MEDS: Gemfibrozil 600 MG TAB PO SCH ×2 (09:26→15:29)
[2018-05-25] MEDS: Aspirin 300 MG Suppository PR SCH (09:26)
--- NOTE | 2018-05-25 09:41 | PDOC.PN ---
- Subjective Encounter Start Date: 05/25/18 Encounter Start Time: 07:00 pt had fall and bruised knee, but xray negative for fracture, no new problem Patient seen and examined. No overnight events - Objective Resuscitation Status: Resuscitation Status FULL:Full Resuscitation MAR Reviewed: Yes Vital Signs & Weight: Vital Signs (12 hours) Temp Pulse Resp BP BP BP Pulse Ox 05/25/18 09:24 169/95 H 05/25/18 08:00 97.4 F L 76 20 169/95 H 95 05/25/18 03:15 97.5 F L 67 13 170/65 H 96 05/25/18 00:13 173/98 H 05/24/18 23:49 97.8 F 82 18 199/108 H 98 Weight Admit Weight 217 lb Weight 212 lb 1.6 oz I&O: 05/24/18 05/25/18 05/26/18 06:59 06:59 06:59 Intake Total 1700 1700 Output Total 1000 Balance 700 1700 Result Diagrams: 05/23/18 03:22 05/23/18 03:22 Radiology Reviewed by me: Yes (knee xray and echo reviewed) EKG Reviewed by me: Yes (nsr) Phys Exam - Physical Examination Constitutional: NAD HEENT: PERRLA, moist MMs, sclera anicteric Neck: no JVD, supple Respiratory: no wheezing, no rales, no rhonchi Cardiovascular: RRR, no significant murmur, no rub Gastrointestinal: soft, non-tender, no distention, positive bowel sounds Musculoskeletal: no edema, pulses present mild left side weakness, seems improving Lymphatic: no nodes Psychiatric: normal affect, A&O x 3 Skin: no rash, normal turgor Dx/Plan (1) Acute CVA (cerebrovascular accident) Code(s): I63.9 - CEREBRAL INFARCTION, UNSPECIFIED Status: Acute Comment: due to small infraction in right posterior limb of internal capsule, likely ischemic (2) Dyslipidemia Code(s): E78.5 - HYPERLIPIDEMIA, UNSPECIFIED Status: Chronic Comment: on statin therapy (3) HTN (hypertension) Code(s): I10 - ESSENTIAL (PRIMARY) HYPERTENSION Status: Chronic Qualifiers: (4) Noncompliance with medications Code(s): Z91.14 - PATIENT'S OTHER NONCOMPLIANCE WITH MEDICATION REGIMEN Status : Chronic (5) Tobacco abuse Code(s): Z72.0 - TOBACCO USE Status: Chronic Comment: counselled to avoid smoking - Plan cont current plan of care, PT/OT * she has not shown good progress with PT, enough to decide to discharge her home * medication reviewed as below * symptomatic treatment. * continue PT and will reassess tomorrow Review of Systems - Review of Systems ENT: negative: Ear Pain, Ear Discharge, Nose Pain, Nose Discharge, Nose Congestion, Mouth Pain, Mouth Swelling, Throat Pain, Throat Swelling, Other Respiratory: negative: Cough, Dry, Shortness of Breath, Hemoptysis, SOB with Excertion, Pleuritic Pain, Sputum, Wheezing Cardiovascular: negative: chest pain, palpitations, orthopnea, paroxysmal nocturnal dyspnea, edema, light headedness, other Gastrointestinal: negative: Nausea, Vomiting, Abdominal Pain, Diarrhea, Constipation, Melena, Hematochezia, Other Genitourinary: negative: Dysuria, Frequency, Incontinence, Hematuria, Retention , Other Musculoskeletal: negative: Neck Pain, Shoulder Pain, Arm Pain, Back Pain, Hand Pain, Leg Pain, Foot Pain, Other Skin: negative: Rash, Lesions, Ramses, Bruising, Other - Medications/Allergies Allergies/Adverse Reactions: Allergies Allergy/AdvReac Type Severity Reaction Status Date / Time No Known Drug Allergies Allergy Verified 05/22/18 05:01 Medications: Current Medications Acetaminophen (Tylenol) 650 mg PO Q4H PRN PRN Reason: Headache/Fever/Mild Pain (1-3) Hydrocodone Bitart/Acetaminophen ([place] 5/325) 1 tab PO Q4H PRN PRN Reason: Moderate Pain (4-6) Last Admin: 05/24/18 22:50 Dose: 1 tab Artificial Tears (Tears Naturale) 2 drop EA EYE PRN PRN PRN Reason: Dry Eyes Aspirin (Ecotrin) 325 mg PO DAILY [facility] Last Admin: 05/25/18 09:25 Dose: 325 mg Aspirin (Aspirin) 300 mg [place] DAILY [facility] Last Admin: 05/25/18 09:26 Dose: Not Given Atorvastatin Calcium (Lipitor) 40 mg PO HS [facility] Last Admin: 05/24/18 20:01 Dose: 40 mg Bisacodyl (Dulcolax) 10 mg PO DAILYPRN PRN PRN Reason: Constipation Clonidine (Catapres) 0.1 mg PO Q4H PRN PRN Reason: FOR SBP > 180 Divalproex Sodium (Depakote) 500 mg PO DAILY [facility] Last Admin: 05/25/18 09:25 Dose: 500 mg Enoxaparin Sodium (Lovenox) 40 mg SC 0900 [facility] Last Admin: 05/25/18 09:24 Dose: 40 mg Famotidine (Pepcid) 20 mg PO BID [facility] Last Admin: 05/25/18 09:25 Dose: 20 mg Gemfibrozil (Lopid) 600 mg PO BID-AC [facility] Last Admin: 05/25/18 09:26 Dose: 600 mg Guaifenesin (Robitussin Sf) 200 mg PO Q4H PRN PRN Reason: Cough Hydralazine HCl (Apresoline) 10 mg SLOW IVP Q4H PRN PRN Reason: SBP > 180 and HR < 70 Last Admin: 05/23/18 04:18 Dose: 10 mg Sodium Chloride (Normal Saline 0.9%) 1,000 mls @ 50 mls/hr IV .Q20H [facility] Last Admin: 05/24/18 20:51 Dose: Not Given Lisinopril (Zestril) 20 mg PO BID [facility] Last Admin: 05/25/18 09:24 Dose: 20 mg Loperamide HCl (Imodium) 2 mg PO PRN PRN PRN Reason: Diarrhea/Loose Stools Loratadine (Claritin) 10 mg PO DAILYPRN PRN PRN Reason: Sinus Symptoms Last Admin: 05/24/18 12:15 Dose: 10 mg Mineral Oil/White Petrolatum (Eucerin Cream) 0 gm TOP BIDPRN PRN PRN Reason: Dry Skin Ondansetron HCl (Zofran Odt) 4 mg PO Q6H PRN PRN Reason: Nausea/Vomiting Ondansetron HCl (Zofran) 4 mg IVP Q6H PRN PRN Reason: Nausea/Vomiting Senna/Docusate Sodium (Senokot S) 2 tab PO BID PRN PRN Reason: Constipation Sodium Chloride ([place] Nasal [place] 0.65%) 0 ml EA NARE QIDPRN PRN PRN Reason: Nasal Congestion Sodium Chloride (Flush - Normal Saline) 10 ml IVF PRN PRN PRN Reason: Saline Flush Throat Lozenges (Cepastat Lozenges) 1 ronald PO Q2H PRN PRN Reason: Sore Throat Zolpidem Tartrate (Ambien) 5 mg PO HSPRN PRN PRN Reason: Insomnia Last Admin: 05/25/18 03:21 Dose: 5 mg
[2018-05-25] MEDS ORDERED: Amlodipine 5 MG TAB PO SCH ×2 (11:45→16:30)
[2018-05-25] MEDS: cloNIDine 0.1 MG TAB PO PRN ×2 (15:29→20:24)
[2018-05-25] MEDS: Atorvastatin Calcium 40 MG TAB PO SCH (20:22)
[2018-05-26] MEDS: Acetaminophen 325 MG TAB PO PRN (04:34)
[2018-05-26] MEDS ORDERED: Amlodipine 5 MG TAB PO SCH (09:00)
[2018-05-26] MEDS: Famotidine 20 MG TAB PO SCH ×2 (09:32→21:03)
[2018-05-26] MEDS: Lisinopril 20 MG TAB PO SCH ×2 (09:32→20:54)
[2018-05-26] MEDS: Divalproex Sodium DR 500 MG TAB PO SCH (09:32)
[2018-05-26] MEDS: Enoxaparin Sodium 40 MG/0.4 ML SYRINGE SC SCH (09:32)
[2018-05-26] MEDS: Gemfibrozil 600 MG TAB PO SCH (09:32)
[2018-05-26] MEDS: Aspirin 325 mg Enteric Coated Tablet PO SCH (09:33)
[2018-05-26] MEDS: Amlodipine 10 MG TAB PO SCH (09:33)
--- NOTE | 2018-05-26 13:41 | PDOC.PN ---
- Subjective Encounter Start Date: 05/26/18 Encounter Start Time: 10:30 Patient seen and examined. No new complaints. No overnight events - Objective Resuscitation Status: Resuscitation Status FULL:Full Resuscitation MAR Reviewed: Yes Vital Signs & Weight: Vital Signs (12 hours) Temp Pulse Resp BP BP BP Pulse Ox 05/26/18 11:43 97.6 F 69 16 168/111 H 95 05/26/18 09:33 61 05/26/18 09:32 185/104 H 05/26/18 08:00 97 05/26/18 07:38 97.9 F 61 16 164/109 H 97 05/26/18 04:00 97.6 F 81 12 137/93 H 98 Weight Admit Weight 217 lb Weight 217 lb 11.2 oz I&O: 05/25/18 05/26/18 05/27/18 06:59 06:59 06:59 Intake Total 1700 850 Balance 1700 850 Result Diagrams: 05/23/18 03:22 05/23/18 03:22 EKG Reviewed by me: Yes (nsr) Phys Exam - Physical Examination Constitutional: NAD HEENT: PERRLA, moist MMs, sclera anicteric Neck: no JVD, supple Respiratory: no wheezing, no rales, no rhonchi Cardiovascular: RRR, no significant murmur, no rub Gastrointestinal: soft, non-tender, no distention, positive bowel sounds Musculoskeletal: no edema, pulses present left side mild weakness Lymphatic: no nodes Psychiatric: normal affect, A&O x 3 Skin: no rash, normal turgor Dx/Plan (1) Acute CVA (cerebrovascular accident) Code(s): I63.9 - CEREBRAL INFARCTION, UNSPECIFIED Status: Acute Comment: due to small infraction in right posterior limb of internal capsule, likely ischemic (2) Dyslipidemia Code(s): E78.5 - HYPERLIPIDEMIA, UNSPECIFIED Status: Chronic Comment: on statin therapy (3) HTN (hypertension) Code(s): I10 - ESSENTIAL (PRIMARY) HYPERTENSION Status: Chronic Qualifiers: (4) Noncompliance with medications Code(s): Z91.14 - PATIENT'S OTHER NONCOMPLIANCE WITH MEDICATION REGIMEN Status : Chronic (5) Tobacco abuse Code(s): Z72.0 - TOBACCO USE Status: Chronic Comment: counselled to avoid smoking - Plan cont current plan of care, PT/OT * medication reviewed as below * symptomatic treatment * continue current treatment plan * rehab is best option * concerned about readmission with home discharge, pt has no insurance, so it is challenging to find rehab. * dc lopid * amlodipine 10 mg daily Review of Systems - Review of Systems ENT: negative: Ear Pain, Ear Discharge, Nose Pain, Nose Discharge, Nose Congestion, Mouth Pain, Mouth Swelling, Throat Pain, Throat Swelling, Other Respiratory: negative: Cough, Dry, Shortness of Breath, Hemoptysis, SOB with Excertion, Pleuritic Pain, Sputum, Wheezing Cardiovascular: negative: chest pain, palpitations, orthopnea, paroxysmal nocturnal dyspnea, edema, light headedness, other Gastrointestinal: negative: Nausea, Vomiting, Abdominal Pain, Diarrhea, Constipation, Melena, Hematochezia, Other Genitourinary: negative: Dysuria, Frequency, Incontinence, Hematuria, Retention , Other Musculoskeletal: negative: Neck Pain, Shoulder Pain, Arm Pain, Back Pain, Hand Pain, Leg Pain, Foot Pain, Other Skin: negative: Rash, Lesions, Ramses, Bruising, Other Neurological: Weakness. negative: Numbness, Incoordination, Change in Speech, Confusion, Seizures, Other - Medications/Allergies Allergies/Adverse Reactions: Allergies Allergy/AdvReac Type Severity Reaction Status Date / Time No Known Drug Allergies Allergy Verified 05/22/18 05:01 Medications: Current Medications Acetaminophen (Tylenol) 650 mg PO Q4H PRN PRN Reason: Headache/Fever/Mild Pain (1-3) Last Admin: 05/26/18 04:34 Dose: 650 mg Hydrocodone Bitart/Acetaminophen ([place] 5/325) 1 tab PO Q4H PRN PRN Reason: Moderate Pain (4-6) Last Admin: 05/24/18 22:50 Dose: 1 tab Amlodipine Besylate (Norvasc) 10 mg PO DAILY [facility] Last Admin: 05/26/18 09:33 Dose: 10 mg Artificial Tears (Tears Naturale) 2 drop EA EYE PRN PRN PRN Reason: Dry Eyes Aspirin (Ecotrin) 325 mg PO DAILY [facility] Last Admin: 05/26/18 09:33 Dose: 325 mg Atorvastatin Calcium (Lipitor) 40 mg PO HS [facility] Last Admin: 05/25/18 20:22 Dose: 40 mg Bisacodyl (Dulcolax) 10 mg PO DAILYPRN PRN PRN Reason: Constipation Clonidine (Catapres) 0.1 mg PO Q4H PRN PRN Reason: FOR SBP > 180 Last Admin: 05/25/18 20:24 Dose: 0.1 mg Divalproex Sodium (Depakote) 500 mg PO DAILY [facility] Last Admin: 05/26/18 09:32 Dose: 500 mg Enoxaparin Sodium (Lovenox) 40 mg SC 0900 [facility] Last Admin: 05/26/18 09:32 Dose: 40 mg Famotidine (Pepcid) 20 mg PO BID [facility] Last Admin: 05/26/18 09:32 Dose: 20 mg Gemfibrozil (Lopid) 600 mg PO BID[facility] Last Admin: 05/26/18 09:32 Dose: 600 mg Guaifenesin (Robitussin Sf) 200 mg PO Q4H PRN PRN Reason: Cough Hydralazine HCl (Apresoline) 10 mg SLOW IVP Q4H PRN PRN Reason: SBP > 180 and HR < 70 Last Admin: 05/23/18 04:18 Dose: 10 mg Lisinopril (Zestril) 20 mg PO BID [facility] Last Admin: 05/26/18 09:32 Dose: 20 mg Loperamide HCl (Imodium) 2 mg PO PRN PRN PRN Reason: Diarrhea/Loose Stools Loratadine (Claritin) 10 mg PO DAILYPRN PRN PRN Reason: Sinus Symptoms Last Admin: 05/24/18 12:15 Dose: 10 mg Mineral Oil/White Petrolatum (Eucerin Cream) 0 gm TOP BIDPRN PRN PRN Reason: Dry Skin Ondansetron HCl (Zofran Odt) 4 mg PO Q6H PRN PRN Reason: Nausea/Vomiting Ondansetron HCl (Zofran) 4 mg IVP Q6H PRN PRN Reason: Nausea/Vomiting Senna/Docusate Sodium (Senokot S) 2 tab PO BID PRN PRN Reason: Constipation Sodium Chloride ([place] Nasal [place] 0.65%) 0 ml EA NARE QIDPRN PRN PRN Reason: Nasal Congestion Sodium Chloride (Flush - Normal Saline) 10 ml IVF PRN PRN PRN Reason: Saline Flush Throat Lozenges (Cepastat Lozenges) 1 ronald PO Q2H PRN PRN Reason: Sore Throat Zolpidem Tartrate (Ambien) 5 mg PO HSPRN PRN PRN Reason: Insomnia Last Admin: 05/25/18 03:21 Dose: 5 mg
[2018-05-26] MEDS: HYDROcodone/Acetaminophen 5/325 mg Tablet PO PRN ×2 (16:20→21:03)
[2018-05-26] MEDS: Atorvastatin Calcium 40 MG TAB PO SCH (21:02)
[2018-05-27] MEDS: Zolpidem Tartrate 5 MG TAB PO PRN ×2 (01:06→22:38)
[2018-05-27] MEDS: Acetaminophen 325 MG TAB PO PRN (06:46)
[2018-05-27] MEDS: Divalproex Sodium DR 500 MG TAB PO SCH (11:06)
[2018-05-27] MEDS: Aspirin 325 mg Enteric Coated Tablet PO SCH (11:06)
[2018-05-27] MEDS: Famotidine 20 MG TAB PO SCH ×2 (11:06→22:39)
[2018-05-27] MEDS: Enoxaparin Sodium 40 MG/0.4 ML SYRINGE SC SCH (11:06)
[2018-05-27] MEDS: Lisinopril 20 MG TAB PO SCH ×2 (11:06→22:39)
[2018-05-27] MEDS: Amlodipine 10 MG TAB PO SCH (11:07)
[2018-05-27] MEDS: HYDROcodone/Acetaminophen 5/325 mg Tablet PO PRN ×2 (11:14→20:05)
--- NOTE | 2018-05-27 18:56 | PDOC.PN ---
- Subjective Encounter Start Date: 05/27/18 Encounter Start Time: 18:50 Subjective: f/u for CVA with residual L-sided weakness. Likely will transition home -: with home health due to funding issues. Working with PT. - Objective Resuscitation Status - Order Detail: 05/27/18 11:52 Resuscitation Status Routine Resuscitation Status: FULL: Full Resuscitation Discussed with: Per Physician Documentation MAR Reviewed: Yes Vital Signs & Weight: Vital Signs (12 hours) Temp Pulse Pulse Pulse Resp BP BP 05/27/18 15:45 97.8 F 69 16 05/27/18 11:36 97.6 F 69 16 05/27/18 11:07 68 05/27/18 11:06 176/93 H 05/27/18 09:30 76 69 147/100 H 05/27/18 08:06 05/27/18 07:49 97.5 F L 68 14 BP BP Pulse Ox 05/27/18 15:45 175/96 H 97 05/27/18 11:36 143/101 H 98 05/27/18 11:07 05/27/18 11:06 05/27/18 09:30 172/102 H 05/27/18 08:06 98 05/27/18 07:49 164/91 H 96 Weight Admit Weight 217 lb Weight 216 lb 14.4 oz I&O: 05/26/18 05/27/18 05/28/18 06:59 06:59 06:59 Intake Total 850 1000 Balance 850 1000 Result Diagrams: 05/23/18 03:22 05/23/18 03:22 Radiology Reviewed by me: Yes (2D echo - EF 60-65%, diast dysfxn; MRI brain - post limb R int capsule CVA) EKG Reviewed by me: Yes (Tele - SR) Phys Exam - Physical Examination Constitutional: NAD + dysconjugate gaze HEENT: PERRLA, sclera anicteric, oral pharynx no lesions Neck: no nodes, no JVD, supple, full ROM Respiratory: no wheezing, no rales, no rhonchi, clear to auscultation bilateral S1, S2 Cardiovascular: RRR, no significant murmur, no rub, gallop Gastrointestinal: soft, non-tender, no distention, positive bowel sounds Musculoskeletal: no edema, pulses present L-sided weakness Neurological: moves all 4 limbs Psychiatric: A&O x 3 Skin: no rash, normal turgor, cap refill <2 seconds Dx/Plan (1) Acute CVA (cerebrovascular accident) Code(s): I63.9 - CEREBRAL INFARCTION, UNSPECIFIED Status: Acute Comment: due to small infraction in right posterior limb of internal capsule, continue ASA 325mg daily, Lipitor (2) Dyslipidemia Code(s): E78.5 - HYPERLIPIDEMIA, UNSPECIFIED Status: Chronic Comment: Continue Lipitor 40mg daily (3) HTN (hypertension) Code(s): I10 - ESSENTIAL (PRIMARY) HYPERTENSION Status: Chronic Qualifiers: Comment: Labile, continue Amlodipine, Lisinopril, may need additional titration for optimal control (4) Noncompliance with medications Code(s): Z91.14 - PATIENT'S OTHER NONCOMPLIANCE WITH MEDICATION REGIMEN Status : Chronic (5) Tobacco abuse Code(s): Z72.0 - TOBACCO USE Status: Chronic Comment: Tobacco cessation counseling - Plan PT/OT, social worker, out of bed/ambulate, DVT proph w/SCDs Stable currently -: Continue ASA, Lipitor -: Continue Amlodipine/Lisinopril -: OOB/PT quad cane for ambulation -: services for d/c * Likely home in 24-48h
[2018-05-27] MEDS: Atorvastatin Calcium 40 MG TAB PO SCH (22:39)
[2018-05-28] MEDS: Acetaminophen 325 MG TAB PO PRN (02:47)
[2018-05-28] MEDS: Lisinopril 20 MG TAB PO SCH ×2 (10:04→21:34)
[2018-05-28] MEDS: Aspirin 325 mg Enteric Coated Tablet PO SCH (10:05)
[2018-05-28] MEDS: Amlodipine 10 MG TAB PO SCH (10:05)
[2018-05-28] MEDS: Famotidine 20 MG TAB PO SCH ×2 (10:05→21:35)
[2018-05-28] MEDS: Divalproex Sodium DR 500 MG TAB PO SCH (10:05)
[2018-05-28] MEDS: Enoxaparin Sodium 40 MG/0.4 ML SYRINGE SC SCH (10:18)
--- NOTE | 2018-05-28 10:54 | PDOC.PN ---
- Subjective Encounter Start Date: 05/28/18 Encounter Start Time: 10:45 Subjective: f/u CVA with residual L-sided weakness. Still with some weakness, leg pain. -: Appetite ok. - Objective Resuscitation Status - Order Detail: 05/27/18 11:52 Resuscitation Status Routine Resuscitation Status: FULL: Full Resuscitation Discussed with: Per Physician Documentation MAR Reviewed: Yes Vital Signs & Weight: Vital Signs (12 hours) Temp Pulse Resp BP BP BP Pulse Ox 05/28/18 10:05 69 148/86 H 05/28/18 10:04 148/86 H 05/28/18 08:45 148/86 H 05/28/18 08:00 98.4 F 69 16 98 05/28/18 04:30 164/88 H 05/28/18 04:00 97.6 F 88 15 126/104 H 95 05/28/18 00:00 97.7 F 69 12 167/111 H 99 Weight Admit Weight 217 lb Weight 215 lb I&O: 05/27/18 05/28/18 05/29/18 06:59 06:59 06:59 Intake Total 1000 237 Balance 1000 237 Result Diagrams: 05/23/18 03:22 05/23/18 03:22 EKG Reviewed by me: Yes (Tele - SR) Phys Exam - Physical Examination Constitutional: NAD HEENT: PERRLA, sclera anicteric, oral pharynx no lesions Neck: no nodes, no JVD, supple, full ROM Respiratory: no wheezing, no rales, no rhonchi, clear to auscultation bilateral S1, S2 Cardiovascular: RRR, no significant murmur, no rub, gallop Gastrointestinal: soft, non-tender, no distention, positive bowel sounds Musculoskeletal: no edema, pulses present L-sided weakness Neurological: moves all 4 limbs Psychiatric: A&O x 3 Skin: normal turgor, cap refill <2 seconds Dx/Plan (1) Acute CVA (cerebrovascular accident) Code(s): I63.9 - CEREBRAL INFARCTION, UNSPECIFIED Status: Acute Comment: Infraction in right posterior limb of internal capsule, continue ASA 325mg daily , Lipitor, PT for mobilization (2) Dyslipidemia Code(s): E78.5 - HYPERLIPIDEMIA, UNSPECIFIED Status: Chronic Comment: Continue Lipitor 40mg daily (3) HTN (hypertension) Code(s): I10 - ESSENTIAL (PRIMARY) HYPERTENSION Status: Chronic Qualifiers: Comment: Labile, continue Amlodipine, Lisinopril, may need additional titration for optimal control (4) Noncompliance with medications Code(s): Z91.14 - PATIENT'S OTHER NONCOMPLIANCE WITH MEDICATION REGIMEN Status : Chronic (5) Tobacco abuse Code(s): Z72.0 - TOBACCO USE Status: Chronic Comment: Tobacco cessation counseling - Plan PT/OT, rn social services, out of bed/ambulate, DVT proph w/SCDs Stable currently -: Continue ASA 325mg daily -: Continue Lipitor -: CM for HH services, PT/OT/ST options -: OOB/ambulate * .
[2018-05-28] MEDS: HYDROcodone/Acetaminophen 5/325 mg Tablet PO PRN ×2 (12:27→17:16)
[2018-05-28 13:52] VITALS: BMI 29.1
[2018-05-28] MEDS: Atorvastatin Calcium 40 MG TAB PO SCH (21:35)
[2018-05-28] MEDS: Zolpidem Tartrate 5 MG TAB PO PRN (23:08)
[2018-05-29] MEDS: HYDROcodone/Acetaminophen 5/325 mg Tablet PO PRN ×3 (07:20→21:31)
[2018-05-29] MEDS: Acetaminophen 325 MG TAB PO PRN (09:08)
[2018-05-29] MEDS: Divalproex Sodium DR 500 MG TAB PO SCH (09:08)
[2018-05-29] MEDS: Amlodipine 10 MG TAB PO SCH (09:08)
[2018-05-29] MEDS: Famotidine 20 MG TAB PO SCH ×2 (09:08→21:31)
[2018-05-29] MEDS: Lisinopril 20 MG TAB PO SCH ×2 (09:08→21:31)
[2018-05-29] MEDS: Enoxaparin Sodium 40 MG/0.4 ML SYRINGE SC SCH (09:09)
[2018-05-29] MEDS: Aspirin 325 mg Enteric Coated Tablet PO SCH (09:09)
--- NOTE | 2018-05-29 11:26 | PDOC.PN ---
- Subjective Encounter Start Date: 05/29/18 Encounter Start Time: 11:15 Subjective: f/u for CVA with residual L-sided weakness and dysarthria. Overall -: feels ok. Ambulates short distances in room. - Objective Resuscitation Status - Order Detail: 05/27/18 11:52 Resuscitation Status Routine Resuscitation Status: FULL: Full Resuscitation Discussed with: Per Physician Documentation MAR Reviewed: Yes Vital Signs & Weight: Vital Signs (12 hours) Temp Pulse Resp BP Pulse Ox 05/29/18 07:48 98.1 F 77 16 145/104 H 99 05/29/18 03:55 97.7 F 70 16 142/98 H 97 05/29/18 00:00 98.3 F 68 20 139/84 98 Weight Admit Weight 217 lb Weight 218 lb I&O: 05/28/18 05/29/18 05/30/18 06:59 06:59 06:59 Intake Total 237 1240 Balance 237 1240 Result Diagrams: 05/23/18 03:22 05/23/18 03:22 EKG Reviewed by me: Yes (Tele - SR) Phys Exam - Physical Examination Constitutional: NAD HEENT: PERRLA, sclera anicteric, oral pharynx no lesions Neck: no nodes, no JVD, supple, full ROM Respiratory: no wheezing, no rales, no rhonchi, clear to auscultation bilateral S1, S2 Cardiovascular: RRR, no significant murmur, no rub, gallop Gastrointestinal: soft, non-tender, no distention, positive bowel sounds mild TTP in the calf region, no palpable mass, erythema or edema Musculoskeletal: no edema, pulses present L-sided weakness Neurological: normal sensation, moves all 4 limbs Psychiatric: A&O x 3 Skin: normal turgor, cap refill <2 seconds Dx/Plan (1) Acute CVA (cerebrovascular accident) Code(s): I63.9 - CEREBRAL INFARCTION, UNSPECIFIED Status: Acute Comment: Infraction in right posterior limb of internal capsule, continue ASA 325mg daily , Lipitor, PT for mobilization, HH with PT at d/c (2) Dyslipidemia Code(s): E78.5 - HYPERLIPIDEMIA, UNSPECIFIED Status: Chronic Comment: Continue Lipitor 40mg daily (3) HTN (hypertension) Code(s): I10 - ESSENTIAL (PRIMARY) HYPERTENSION Status: Chronic Qualifiers: Comment: Labile, continue Amlodipine, Lisinopril, may need additional titration for optimal control (4) Noncompliance with medications Code(s): Z91.14 - PATIENT'S OTHER NONCOMPLIANCE WITH MEDICATION REGIMEN Status : Chronic (5) Tobacco abuse Code(s): Z72.0 - TOBACCO USE Status: Chronic Comment: Tobacco cessation counseling - Plan PT/OT, social work coordinator, out of bed/ambulate, DVT proph w/SCDs Stable currently -: Continue ASA/Lipitor -: CM assisting with HH options -: PT for mobilization -: Likely home in am 05/30/18 * .
[2018-05-29] MEDS: Atorvastatin Calcium 40 MG TAB PO SCH (21:31)
[2018-05-30] MEDS: HYDROcodone/Acetaminophen 5/325 mg Tablet PO PRN (03:57)
[2018-05-30 04:21] VITALS: TEMP 97.9
[2018-05-30] MEDS: Aspirin 325 mg Enteric Coated Tablet PO SCH (08:27)
[2018-05-30] MEDS: Amlodipine 10 MG TAB PO SCH (08:27)
[2018-05-30] MEDS: Enoxaparin Sodium 40 MG/0.4 ML SYRINGE SC SCH (08:28)
[2018-05-30] MEDS: Lisinopril 20 MG TAB PO SCH (08:28)
[2018-05-30] MEDS: Famotidine 20 MG TAB PO SCH (08:28)
[2018-05-30] MEDS: Divalproex Sodium DR 500 MG TAB PO SCH (08:28)
[2018-05-30 11:42] VITALS: BP 152/97
[2018-05-30] MEDS: Acetaminophen 325 MG TAB PO PRN (13:45)
--- NOTE | 2018-05-31 15:29 | EKG ---
Test Reason : Blood Pressure : / mmHG Vent. Rate : 073 BPM Atrial Rate : 073 BPM P-R Int : 162 ms QRS Dur : 078 ms QT Int : 410 ms P-R-T Axes : 028 -20 027 degrees QTc Int : 451 ms Normal sinus rhythm Septal infarct , age undetermined Abnormal ECG Confirmed by CARLY ESPINOZA DO ([id number]), graphics editor JANETH AKHTAR ([id number]) on 05/31/2018 3:28:42 PM Referred By: OLGA Confirmed By:CARLY ESPINOZA DO
== END 2018-05-30 14:25 | disposition home health service (06) | DRG 65 ==
LOC: ERS 21:12 → 2SE 05-22 00:30
PROVIDERS: ADMIT Internal Medicine; ATTEND Internal Medicine
DX: I63.9 Cerebral infarction, unspecified (principal); G81.94 Hemiplegia, unspecified affecting left nondominant side; R47.1 Dysarthria and anarthria; I10 Essential (primary) hypertension; E78.5 Hyperlipidemia, unspecified; G43.909 Migraine, unspecified, not intractable, without status migrainosus; F41.9 Anxiety disorder, unspecified; F31.9 Bipolar disorder, unspecified; F17.210 Nicotine dependence, cigarettes, uncomplicated; H02.401 Unspecified ptosis of right eyelid; Z91.14 Patient's other noncompliance with medication regimen
CPT/HCPCS: 36415; 36416; 70450; 70496; 70498; 70551; 71045; 80048; 80053; 80061; 82553; 83090; 84484; 85025; 85730; 90471; 90686; 93005; 93306; 99406; G0008; G8978-GP-CM; G8979-GP-CK; G8987-GO-CJ; G8988-GO-CI; G8996-GN-CI; G8997-GN-CH; J0360; J1650; J2405

== ENCOUNTER 2018-06-02 15:30 | Emergency (ER) | payer SELFPAY ==
--- NOTE | 2018-06-02 17:05 | CT ---
HEAD CT: Date: 06/02/18 COMPARISON: 05/21/18. HISTORY: Dizziness, nausea, lightheadedness, and headache with congestion. TECHNIQUE: Axial CT imaging at 5 mm intervals from vertex through skull base without contrast. FINDINGS: There is opacification of the sphenoid sinus on the left, new. The imaged paranasal sinuses/mastoid a ir cells are grossly unremarkable otherwise. There is multifocal periventricular, deep, and subcortical white matter hypodensity, as seen on the p rior examination. No intracranial hemorrhage, midline shift, or mass effect. IMPRESSION: 1. No intracranial hemorrhage. 2. Multifocal periventricular deep and subcortical white matter hypodensity suggests small vessel di sease, atypical in a patient of this age. In addition to small vessel disease, demyelinating disease is a possibility. 3. New isolated left sphenoid sinus opacification, for which follow-up to document resolution is adv ised. If this persists, MRI with and without contrast advised. HARSH Ayers POS: [facility]
[2018-06-02 17:08] LABS: #Basophils 0.1 thou/uL (0.0-0.2); #Eosinphils 0.3 thou/uL (0.0-0.7); #Lymphocytes 2.5 thou/uL (1.20-3.40); #Monocytes 0.7 thou/uL (0.11-0.59); #Neutrophils 4.7 thou/uL (1.40-6.50); %Basophils 1.3 % (0.0-1.0); %Eosinophils 3.8 % (0.0-10.0); %Lymphocytes 29.9 % (21.0-51.0); %Neutrophils 56.9 % (42.0-75.0); Hemoglobin 15.2 g/dL (12.0-16.0); Mean Corpuscular HGB CONC 33.9 g/dL (32.0-36.0); Mean Corpuscular Hemoglobin 29.5 pg (27.0-31.0); Mean Corpuscular Volume 86.9 fL (78.0-98.0); Mean Platelet Volume 8.9 fL (7.4-10.4); Platelet Count 237 thou/uL (130-400); RBC Distribution Width 11.9 % (11.5-14.5); Red Blood Cell (RBC) Count 5.16 mill/uL (4.20-5.40); White Blood Cell (WBC) Count 8.3 thou/uL (4.8-10.8)
[2018-06-02] MEDS ORDERED: Ondansetron ODT 4 MG TAB ONE (17:20)
[2018-06-02 17:33] LABS: ALT (SGPT) 21 U/L (8-55); AST (SGOT) 17 U/L (5-34); Albumin 4.1 g/dL (3.5-5.0); Alkaline Phosphatase 107 U/L (40-150); Anion Gap 13 mmol/L (10-20); BUN (Urea Nitrogen) 16 mg/dL (7.0-18.7); Bilirubin, Total Less than 0.2 mg/dL (0.2-1.2); Calc. Creatinine Clearance 0 mL/min (70-130); Carbon Dioxide 25 mmol/L (22-29); Chloride 108 mmol/L (98-107); Estimated GFR-MDRD 70; Globulin 3.8 g/dL (2.4-3.5); Glucose 95 mg/dL (70-105); Potassium 3.9 mmol/L (3.5-5.1); Protein, Total 7.9 g/dL (6.0-8.3); Sodium 142 mmol/L (136-145)
[2018-06-02 17:37] LABS: Troponin I Less than 0.010 ng/mL (< 0.028)
== END 2018-06-02 18:07 | disposition home or self-care (01) ==
LOC: ERS 15:30
DX: J32.9 Chronic sinusitis, unspecified (principal); G43.909 Migraine, unspecified, not intractable, without status migrainosus; E78.5 Hyperlipidemia, unspecified; F41.9 Anxiety disorder, unspecified; I10 Essential (primary) hypertension; F31.9 Bipolar disorder, unspecified; Z86.73 Personal history of transient ischemic attack (TIA), and cerebral infarction without residual deficits; Z79.899 Other long term (current) drug therapy
CPT/HCPCS: 36415; 70450; 80053; 82553; 84484; 85025; 93005; 94760; Q0162

== ENCOUNTER 2018-06-11 14:33 | Observation (INO) | payer SELFPAY ==
[~2018-06-11 14:33] MED LIST changes: -ISOVUE-370 76%-LOCM 1 ML ONE; +Iopamidol 370 76% 50 ML VIAL FS ONE
--- NOTE | 2018-06-11 15:20 | CT ---
CT HEAD NONCONTRAST: History: CVA. Altered mental status. Comparison: 06-02-18 FINDINGS: There is no evidence of acute intracranial hemorrhage. The ill defined area of decreased density with in the posterior limb of the right internal capsule has enlarged since the prior study, now measuring up to 1.3 cm. Other areas of lacunar infarct and prominent chronic ischemic small vessel disease are again demonstrated. No significant mass effect or shift of midline structures. Mucosal thickening of the sphenoid sinus again demonstrated. IMPRESSION: Interval evolution of right basal ganglia infarct. Other chronic type findings are stable. No acute h emorrhage is evident. POS: [facility]
--- NOTE | 2018-06-11 15:40 | CT ---
CT OF THE CERVICAL SPINE: DATE: 06/11/2018. COMPARISON: 03/09/2016. HISTORY: Fall, trauma, pain. TECHNIQUE: Axial CT imaging at 2.5 mm intervals from skull base through the lung apices without contrast. Coron al and sagittal reformatted imaging obtained. FINDINGS: The craniocervical junction is intact. There is mild degenerative change at the atlantoaxial intersp manuel. The occipital condyles, the dens, and the C1-2 articulation appears grossly unremarkable. The vertebral body height and alignment appears normal. The cervicothoracic junction is intact. Imaged lung apices grossly unremarkable. The C1 ring is intact. No fracture or evidence of dislocation is noted. There is mild disk space narrowing and posterior osteophyte formation at C5-6. No worrisome lytic or blastic bone lesion. There is opacification of the imaged left sphenoid sinus, only partially imaged o this examination. Correlation with head CT suggested. IMPRESSION: No acute findings. Incidental findings as detailed above. POS: [facility]
[2018-06-11] MEDS ORDERED: Acetaminophen 500 MG TAB ONE (16:54)
[2018-06-11 17:13] LABS: #Basophils 0.2 thou/uL (0.0-0.2); #Eosinphils 0.8 thou/uL (0.0-0.7); #Lymphocytes 4.9 thou/uL (1.20-3.40); #Monocytes 1.2 thou/uL (0.11-0.59); #Neutrophils 7.9 thou/uL (1.40-6.50); %Eosinophils 5.6 % (0.0-10.0); %Lymphocytes 32.5 % (21.0-51.0); %Monocytes 7.8 % (0.0-10.0); %Neutrophils 53.1 % (42.0-75.0); Hemoglobin 13.8 g/dL (12.0-16.0); Mean Corpuscular HGB CONC 33.5 g/dL (32.0-36.0); Mean Corpuscular Hemoglobin 28.7 pg (27.0-31.0); Mean Corpuscular Volume 85.7 fL (78.0-98.0); Mean Platelet Volume 8.7 fL (7.4-10.4); Platelet Count 274 thou/uL (130-400); Red Blood Cell (RBC) Count 4.83 mill/uL (4.20-5.40); White Blood Cell (WBC) Count 14.9 thou/uL (4.8-10.8)
[2018-06-11 17:38] LABS: ALT (SGPT) 12 U/L (8-55); AST (SGOT) 11 U/L (5-34); Albumin 3.9 g/dL (3.5-5.0); Alkaline Phosphatase 95 U/L (40-150); Anion Gap 15 mmol/L (10-20); BUN (Urea Nitrogen) 16 mg/dL (7.0-18.7); Bilirubin, Total 0.2 mg/dL (0.2-1.2); Calc. Creatinine Clearance 0 mL/min (70-130); Calcium 9.5 mg/dL (7.8-10.44); Carbon Dioxide 25 mmol/L (22-29); Chloride 105 mmol/L (98-107); Estimated GFR-MDRD 81; Globulin 3.2 g/dL (2.4-3.5); Glucose 99 mg/dL (70-105); Potassium 3.6 mmol/L (3.5-5.1); Protein, Total 7.1 g/dL (6.0-8.3); Sodium 141 mmol/L (136-145)
--- NOTE | 2018-06-11 19:32 | CT ---
CT ANGIO HEAD WITH 3D RENDERIN06/11/18 HISTORY: 48-year-old female with history of altered mental status post. There is some atherosclerotic calcific changes within the intracranial internal carotid. There is mod erate approximately 50% stenosis of the left internal carotid at the level of the clinoid portion. T his appears to be associated with some calcific plaque just below this level. Middle cerebral arterie s demonstrate no evidence for major branch occlusion. No evidence for an aneurysm. Vertebrobasilar ar teries are unremarkable. IMPRESSION: Approximately 50% stenosis of the left internal carotid artery at approximately the clinoid level. No evidence for other major branch occlusion. No evidence for an aneurysm. POS: [facility]
[2018-06-11 21:03] LABS: Troponin I 0.015 ng/mL (< 0.028)
[2018-06-11] MEDS ORDERED: Acetaminophen 325 MG TAB PO PRN (21:48)
[2018-06-11] MEDS ORDERED: Ondansetron ODT 4 MG TAB SL PRN (21:48)
[2018-06-11] MEDS ORDERED: Sodium Chloride 0.9% 1,000 ML IV SCH (21:48)
[2018-06-11] MEDS ORDERED: Ondansetron PF 4 MG/2 ML Vial IVP PRN (21:48)
[2018-06-11 22:38] VITALS: BMI 28.1
[2018-06-11] MEDS ORDERED: Labetalol HCl 100 MG/20 ML VIAL SLOW IVP PRN (23:07)
[2018-06-11] MEDS ORDERED: hydrALAZINE 20 MG/ML VIAL SLOW IVP PRN (23:07)
[2018-06-12 00:02] LABS: Troponin I Less than 0.010 ng/mL (< 0.028)
[2018-06-12 06:04] LABS: Cardiac Risk 3.9 (Less than 4.5)
[2018-06-12] MEDS ORDERED: Loperamide HCl 2 MG CAP PO PRN (07:28)
[2018-06-12] MEDS ORDERED: Diabetic Tussin 200 MG/10 ML UDCUP PO PRN (07:28)
[2018-06-12] MEDS ORDERED: Bisacodyl 10 MG SUPP PR PRN (07:28)
[2018-06-12] MEDS ORDERED: Acetaminophen 325 MG TAB PO PRN (07:28)
[2018-06-12] MEDS ORDERED: Ondansetron PF 4 MG/2 ML Vial IVP PRN (07:28)
[2018-06-12] MEDS ORDERED: Artificial Tears 18 DROP/0.9 ML EA EYE PRN (07:28)
[2018-06-12] MEDS ORDERED: Eucerin (Mineral Oil/Petrolatum,White) 30 gm Jar TOP PRN (07:28)
[2018-06-12] MEDS ORDERED: HYDROcodone/Acetaminophen 5/325 mg Tablet PO PRN (07:28)
[2018-06-12] MEDS ORDERED: Loratadine 10 MG TAB PO PRN (07:28)
[2018-06-12] MEDS ORDERED: Sodium Chloride 0.65% Nasal 44 ML BOT EA NARE PRN (07:28)
[2018-06-12] MEDS ORDERED: Calcium Carbonate 500 MG ChewTAB PO PRN (07:28)
[2018-06-12] MEDS ORDERED: Ondansetron ODT 4 MG TAB PO PRN (07:28)
[2018-06-12] MEDS ORDERED: Senokot S 8.6-50 MG TAB PO PRN (07:28)
[2018-06-12] MEDS ORDERED: Zolpidem Tartrate 5 MG TAB PO PRN (07:28)
[2018-06-12] MEDS ORDERED: hydrALAZINE 20 MG/ML VIAL SLOW IVP PRN (07:33)
[2018-06-12] MEDS ORDERED: Labetalol HCl 100 MG/20 ML VIAL SLOW IVP PRN (07:33)
[2018-06-12] MEDS: Enoxaparin Sodium 40 MG/0.4 ML SYRINGE SC SCH (10:15)
[2018-06-12] MEDS: Famotidine 20 MG TAB PO SCH ×2 (10:15→21:37)
[2018-06-12] MEDS: Divalproex Sodium DR 500 MG TAB PO SCH (10:16)
[2018-06-12] MEDS: Aspirin 325 mg Enteric Coated Tablet PO SCH (10:16)
[2018-06-12] MEDS: Amlodipine 10 MG TAB PO SCH (10:16)
[2018-06-12] MEDS: Lisinopril 20 MG TAB PO SCH ×2 (10:16→21:37)
[2018-06-12] MEDS: Fluticasone Propionate Nasal Spray 16 gm Bottle NASAL SCH (13:13)
[2018-06-12] MEDS: Mupirocin 2% Ointment 22 GM Tube TOP SCH ×2 (13:13→22:40)
--- NOTE | 2018-06-12 13:29 | HP ---
PRIMARY CARE PHYSICIAN: [facility]. REASON FOR ADMISSION: The patient had mechanical fall at home and subsequently, she experienced slurred speech. The patient is admitted for rule out new stroke. HISTORY OF PRESENT ILLNESS: A 48-year-old female who was recently admitted in our hospital on May 22, 2018. At that time, the patient was diagnosed with right internal capsule infarction and left-sided upper and lower extremity weakness with aphasia. During that admission, the patient had echocardiography, which showed normal EF. The patient was discharged home on May 30, 2018. During that admission, the patient was not able to get to rehab benefit because of no insurance. At this time, the patient had episode of fall and subsequently, she experienced some slurred speech and some more weakness on the left side. The patient reports that her left-sided weakness has not completely resolved since last stroke. She was not having any headaches. She denied any chest pain, palpitation, or dizziness. She did not have any fever or chills. She did not have any UTI symptoms. She denies any constipation, diarrhea, melena, or hematochezia. Today, in the emergency room, the patient had a CT rampart of [place]dom[place], CT cervical spine and CT of brain, which were all essentially unremarkable for any acute process. The patient was given aspirin and Tylenol and subsequently, she was admitted to Stroke Floor for observation. REVIEW OF SYSTEMS: CONSTITUTIONAL: Negative for weight loss or gain, ability to conduct usual activities. SKIN: Negative for rash, itching. EYES: Negative for double vision, pain. ENT/MOUTH: Negative for nose bleeding, neck stiffness, pain, tenderness. CARDIOVASCULAR: Negative for palpitations, dyspnea on exertion, orthopnea. RESPIRATORY: Negative for shortness of breath, wheezing, cough, hemoptysis, fever or night sweats. GASTROINTESTINAL: Negative for poor appetite, abdominal pain, heartburn, nausea, vomiting, constipation, or diarrhea. GENITOURINARY: Negative for urgency, frequency, dysuria, nocturia. MUSCULOSKELETAL: Negative for pain, swelling. NEUROLOGIC/PSYCHIATRIC: Negative for anxiety, depression. ALLERGY/IMMUNOLOGIC: Negative for skin rash, bleeding tendency. See my HPI for pertinent positives and negatives. All other review of systems reviewed and negative except as mentioned in HPI. PAST MEDICAL HISTORY: 1. Ischemic cerebrovascular accident on May 2018. 2. Hypertension. 3. Dyslipidemia. 4. Migraine headache. PAST SURGICAL HISTORY: 1. Bilateral ankle surgery. 2. Tubal ligation. PAST PSYCHIATRIC HISTORY: 1. Anxiety. 2. Depression. 3. Bipolar disorder. SOCIAL HISTORY: The patient is . She lives at home with her . She smokes about one pack per day. She quit smoking last month. She denies any alcohol abuse. She denies any other illicit drug abuse. FAMILY HISTORY: No family history of coronary artery disease, stroke, or cancer. ALLERGIES: NO KNOWN DRUG ALLERGY. CURRENT HOME MEDICATIONS: The patient was discharged home on following medications; 1. Flonase nasal spray daily. 2. Lisinopril 30 mg p.o. b.i.d. 3. Amlodipine 10 mg daily. 4. Aspirin 325 mg p.o. daily. 5. Lipitor 40 mg p.o. at bedtime. 6. Depakote 500 mg p.o. daily. EMERGENCY ROOM COURSE: The patient is given aspirin and Tylenol. PHYSICAL EXAMINATION: VITAL SIGNS: On arrival; blood pressure 152/90, pulse 88, respiratory rate 20, temperature 98.2, and saturation 97% on room air. Weight 93 kg. GENERAL: The patient is currently alert and awake. No obvious acute distress. HEENT: Head; normocephalic, atraumatic. Eyes; pupils round, reactive to light. Extraocular muscle intact. ENT; oropharynx within normal limits. Moist mucous membranes. No oral lesion. No pharyngeal erythema. No exudate. NECK: Supple. No JVD. No thyromegaly. No carotid bruit. No jugular venous distention. LUNGS: Clear to auscultation without any rhonchi or rales. CARDIAC: S1 and S2 regular. No murmur. No gallop. No rub. ABDOMEN: Soft. Bowel sounds present. Nontender. Nondistended. No organomegaly. No mass. No suprapubic tenderness. BACK: Unremarkable. No CVA tenderness. EXTREMITIES: Upper extremities, passive movement of all joints are normal. Lower extremity, no edema. Good distal pulsation. SKIN: No skin rash. HEMATOLOGICAL: No lymphadenopathy. NEUROLOGIC: The patient has baseline little bit slurred speech, which is unchanged from previous. She does have pronator drift on the left side, which is also unchanged from previous. The patient does have weakness on left lower extremity, which is also unchanged from previous. Right upper and lower extremities are within normal limits. No cerebellar sign. Plantar bilateral flexor. PSYCHIATRIC: Normal affect. LABORATORY DATA: Significant labs; EKG showing normal sinus rhythm, within normal limit. CT brain showing interval evolution of right basal ganglial infarct. No acute changes. No hemorrhage. CBC; WBC 14.9, hemoglobin 13.8, and platelet 274. BMP; sodium 141, potassium 3.6, chloride 105, carbon dioxide 25, BUN 16, creatinine 0.76, glucose 99, and calcium 9.5. LFT; AST 11, ALT 12, alkaline phosphatase 95, and albumin 3.9. Cardiac enzyme negative x3. LDL 65. ASSESSMENT AND PLAN: Impression; 1. Mechanical fall. 2. Left upper and lower extremity weakness, which appears to be chronic from previous stroke. 3. Recent history of right internal capsule infarct with left upper and lower extremity weakness. 4. Hypertension. 5. Dyslipidemia. 6. Anxiety, depression, and bipolar disorder. 7. Ex-smoker. PLAN: Observation to the Stroke Floor. Neurology evaluation. PT, OT, and Speech consultation. Restarted her home medication including aspirin, Lipitor, Depakote, sodium, lisinopril, and monitor vitals while in hospital. Stroke Team evaluation. No need of echocardiography because the patient already had echocardiography recently. We will repeat MRI brain to see whether the patient has any new stroke or not. We will observe for 24 hours and we will consider discharging her home tomorrow morning. Plan of care discussed with the patient in detail. Job ID: [id number]
--- NOTE | 2018-06-12 16:17 | MRI ---
MRI BRAIN WITHOUT CONTRAST: Date: 06-21-18 Comparison: None. History: Transient ischemic attack. Assess for acute infarction. Technique: Multiplanar, multisequence MR imaging of the brain is provided with and without contrast. FINDINGS: The axial gradient echo imaging is significantly limited by persistent head motion. No obvious intrac ranial hemorrhage is seen. There is an oval area of increased signal intensity on the diffusion weighted imaging measuring 1.4 c m in greatest dimension within the region of the posterior limb of the internal capsule. This demonst rates increased signal intensity on the ADC map suggesting T2 shine through. There was an acute infar ction in this region on the prior 05-23-18 exam. On today's examination, no new infarction is appreci ated. The axial FLAIR and T2 weighted imaging demonstrates extensive multifocal periventricular, deep, and subcortical white matter of T2 and FLAIR hyperintensity, evidence of prominent small vessel disease, particularly significant in a patient of this age. There is opacification of the sphenoid sinus on the left, a new finding. Regional bone marrow signal intensity appears within normal limits. IMPRESSION: Subacute infarction of right basal ganglia/posterior internal capsule on right, as seen on the exam. No acute infarction noted. No obvious hemorrhage. Extensive white matter disease. POS: [facility]
[2018-06-12] MEDS ORDERED: Atorvastatin Calcium 40 MG TAB PO SCH (21:00)
--- NOTE | 2018-06-13 01:01 | CON ---
DATE OF CONSULTATION: 06/12/2018 NEUROLOGIC FOLLOWUP NOTE: Ms. Arreaga came back in for concerns of a new stroke. She has been very tired the last two days prior to admission, she thought that her speech was a bit more slurred and her left side felt a bit weaker. She had a repeat MRI done today, which does not reveal any new area of ischemia, but only a subacute area of infarction involving the right basal ganglia. Her exam appears stable compared to last time. I suspect that the fatigue was accentuating her symptoms. She otherwise appears to be stable and can go home. Job ID: [id number]
[2018-06-13 05:44] LABS: #Basophils 0.1 thou/uL (0.0-0.2); #Eosinphils 0.9 thou/uL (0.0-0.7); #Lymphocytes 3.1 thou/uL (1.20-3.40); #Neutrophils 4.2 thou/uL (1.40-6.50); %Basophils 1.2 % (0.0-1.0); %Eosinophils 9.5 % (0.0-10.0); %Lymphocytes 33.6 % (21.0-51.0); %Monocytes 10.3 % (0.0-10.0); %Neutrophils 45.4 % (42.0-75.0); Hemoglobin 14.7 g/dL (12.0-16.0); Mean Corpuscular HGB CONC 33.6 g/dL (32.0-36.0); Mean Corpuscular Hemoglobin 29.1 pg (27.0-31.0); Mean Corpuscular Volume 86.8 fL (78.0-98.0); Mean Platelet Volume 8.7 fL (7.4-10.4); Platelet Count 256 thou/uL (130-400); RBC Distribution Width 12.1 % (11.5-14.5); Red Blood Cell (RBC) Count 5.04 mill/uL (4.20-5.40); White Blood Cell (WBC) Count 9.2 thou/uL (4.8-10.8)
[2018-06-13 05:57] LABS: Anion Gap 11 mmol/L (10-20); BUN (Urea Nitrogen) 15 mg/dL (7.0-18.7); Calc. Creatinine Clearance 123 mL/min (70-130); Calcium 9.7 mg/dL (7.8-10.44); Carbon Dioxide 30 mmol/L (22-29); Chloride 103 mmol/L (98-107); Estimated GFR-MDRD 74; Glucose 88 mg/dL (70-105); Potassium 3.9 mmol/L (3.5-5.1); Sodium 140 mmol/L (136-145)
[2018-06-13] MEDS: Mupirocin 2% Ointment 22 GM Tube TOP SCH (10:08)
[2018-06-13] MEDS: Enoxaparin Sodium 40 MG/0.4 ML SYRINGE SC SCH (10:09)
[2018-06-13] MEDS: Fluticasone Propionate Nasal Spray 16 gm Bottle NASAL SCH (10:09)
[2018-06-13] MEDS: Divalproex Sodium DR 500 MG TAB PO SCH (11:01)
[2018-06-13] MEDS: Famotidine 20 MG TAB PO SCH (11:01)
[2018-06-13] MEDS: Amlodipine 10 MG TAB PO SCH (11:01)
[2018-06-13] MEDS: Aspirin 325 mg Enteric Coated Tablet PO SCH (11:01)
[2018-06-13] MEDS: Lisinopril 20 MG TAB PO SCH (11:02)
--- NOTE | 2018-06-13 12:36 | PDOC.PN ---
- Subjective Encounter Start Date: 06/13/18 Encounter Start Time: 07:15 Patient seen and examined. No new complaints. No overnight events - Objective Resuscitation Status - Order Detail: 06/12/18 07:28 Resuscitation Status Routine Resuscitation Status: FULL: Full Resuscitation MAR Reviewed: Yes Vital Signs & Weight: Vital Signs (12 hours) Temp Pulse Resp BP BP Pulse Ox 06/13/18 11:02 135/90 06/13/18 11:01 67 06/13/18 08:06 97.6 F 68 18 136/78 98 06/13/18 03:35 97.7 F 67 16 140/80 95 Weight Weight 207 lb 9 oz I&O: 06/12/18 06/13/18 06/14/18 06:59 06:59 06:59 Intake Total 360 1300 Balance 360 1300 Result Diagrams: 06/13/18 05:22 06/13/18 05:22 Radiology Reviewed by me: Yes (echo report shows possible vegetation) EKG Reviewed by me: Yes (nsr) Phys Exam - Physical Examination Constitutional: NAD HEENT: PERRLA, moist MMs, sclera anicteric Neck: no JVD, supple Respiratory: no wheezing, no rales, no rhonchi Cardiovascular: RRR, no significant murmur, no rub Gastrointestinal: soft, non-tender, no distention, positive bowel sounds Musculoskeletal: no edema, pulses present Neurological: non-focal, normal sensation, moves all 4 limbs Lymphatic: no nodes Psychiatric: normal affect, A&O x 3 Skin: no rash, normal turgor Dx/Plan (1) Dyslipidemia Code(s): E78.5 - HYPERLIPIDEMIA, UNSPECIFIED Status: Chronic Comment: (2) H/O: CVA (cerebrovascular accident) Code(s): Z86.73 - PRSNL HX OF TIA (TIA), AND CEREB INFRC W/O RESID DEFICITS Status: Chronic (3) HTN (hypertension) Code(s): I10 - ESSENTIAL (PRIMARY) HYPERTENSION Status: Chronic Qualifiers: Comment: (4) Tobacco abuse Code(s): Z72.0 - TOBACCO USE Status: Chronic Comment: (5) Fall at home Code(s): W19.XXXA - UNSPECIFIED FALL, INITIAL ENCOUNTER; Y92.009 - UNSP PLACE IN UNSP NON-INSTITUT (PRIVATE) RESIDENCE PLACE Status: Chronic - Plan cont current plan of care * medication reviewed as below * symptomatic treatment. * will consult cardiology for NIKIA * do blood culture Review of Systems - Review of Systems ENT: negative: Ear Pain, Ear Discharge, Nose Pain, Nose Discharge, Nose Congestion, Mouth Pain, Mouth Swelling, Throat Pain, Throat Swelling, Other Respiratory: negative: Cough, Dry, Shortness of Breath, Hemoptysis, SOB with Excertion, Pleuritic Pain, Sputum, Wheezing Cardiovascular: negative: chest pain, palpitations, orthopnea, paroxysmal nocturnal dyspnea, edema, light headedness, other Gastrointestinal: negative: Nausea, Vomiting, Abdominal Pain, Diarrhea, Constipation, Melena, Hematochezia, Other Genitourinary: negative: Dysuria, Frequency, Incontinence, Hematuria, Retention , Other Musculoskeletal: negative: Neck Pain, Shoulder Pain, Arm Pain, Back Pain, Hand Pain, Leg Pain, Foot Pain, Other Skin: negative: Rash, Lesions, Ramses, Bruising, Other - Medications/Allergies Allergies/Adverse Reactions: Allergies Allergy/AdvReac Type Severity Reaction Status Date / Time No Known Drug Allergies Allergy Verified 05/22/18 05:01 Medications: Current Medications Acetaminophen (Tylenol) 650 mg PO Q4H PRN PRN Reason: Headache/Fever/Mild Pain (1-3) Hydrocodone Bitart/Acetaminophen ([place] 5/325) 1 tab PO Q4H PRN PRN Reason: Moderate Pain (4-6) Last Admin: 06/12/18 11:06 Dose: 1 tab Amlodipine Besylate (Norvasc) 10 mg PO DAILY [facility] Last Admin: 06/13/18 11:01 Dose: Not Given Artificial Tears (Tears Naturale) 2 drop EA EYE PRN PRN PRN Reason: Dry Eyes Aspirin (Ecotrin) 325 mg PO DAILY [facility] Last Admin: 06/13/18 11:01 Dose: Not Given Atorvastatin Calcium (Lipitor) 80 mg PO HS [facility] Last Admin: 06/12/18 21:37 Dose: 80 mg Bisacodyl (Dulcolax) 10 mg KS DAILYPRN PRN PRN Reason: Constipation Calcium Carbonate (Tums) 1,000 mg PO Q4H PRN PRN Reason: Heartburn or Indigestion Divalproex Sodium (Depakote) 500 mg PO DAILY [facility] Last Admin: 06/13/18 11:01 Dose: Not Given Enoxaparin Sodium (Lovenox) 40 mg SC 0900 [facility] Last Admin: 06/13/18 10:09 Dose: 40 mg Famotidine (Pepcid) 20 mg PO BID [facility] Last Admin: 06/13/18 11:01 Dose: Not Given Fluticasone Propionate (Flonase Nasal [place]) 0 gm NASAL DAILY [facility] Last Admin: 06/13/18 10:09 Dose: 1 spr Guaifenesin (Robitussin Sf) 200 mg PO Q4H PRN PRN Reason: Cough Hydralazine HCl (Apresoline) 10 mg SLOW IVP Q4H PRN PRN Reason: SBP Greater Than 180 Labetalol HCl (Normodyne) 20 mg SLOW IVP Q1H PRN PRN Reason: SBP Greater Than 180 Lisinopril (Zestril) 30 mg PO BID [facility] Last Admin: 06/13/18 11:02 Dose: Not Given Loperamide HCl (Imodium) 2 mg PO PRN PRN PRN Reason: Diarrhea/Loose Stools Loratadine (Claritin) 10 mg PO DAILYPRN PRN PRN Reason: Sinus Symptoms Mineral Oil/White Petrolatum (Eucerin Cream) 0 gm TOP BIDPRN PRN PRN Reason: Dry Skin Mupirocin (Bactroban 2% Ointment) 0 gm TOP BID [facility] Last Admin: 06/13/18 10:08 Dose: 1 applic Ondansetron HCl (Zofran Odt) 4 mg PO Q6H PRN PRN Reason: Nausea/Vomiting Ondansetron HCl (Zofran) 4 mg IVP Q6H PRN PRN Reason: Nausea/Vomiting Senna/Docusate Sodium (Senokot S) 2 tab PO BID PRN PRN Reason: Constipation Sodium Chloride (Flush - Normal Saline) 10 ml IVF Q12HR [facility] Last Admin: 06/13/18 11:02 Dose: 10 ml Sodium Chloride (Flush - Normal Saline) 10 ml IVF PRN PRN PRN Reason: Saline Flush Sodium Chloride ([place] Nasal [place] 0.65%) 0 ml EA NARE QIDPRN PRN PRN Reason: Nasal Congestion Zolpidem Tartrate (Ambien) 5 mg PO HSPRN PRN PRN Reason: Insomnia Last Admin: 06/12/18 21:39 Dose: 5 mg
[2018-06-13] MEDS ORDERED: PROPOFOL 200 MG/20 ML VIAL ONE (13:00)
[2018-06-13] MEDS ORDERED: Midazolam HCl 2 mg/2 ml Vial ONE (15:42)
[2018-06-13] MEDS ORDERED: PROPOFOL 20 ML ONE (15:47)
[2018-06-13 17:06] VITALS: BP 151/91; TEMP 98
--- NOTE | 2018-06-13 17:52 | DIS ---
DATE OF ADMISSION: 06/11/2018 DATE OF DISCHARGE: 06/13/2018 PRIMARY CARE PHYSICIAN: [facility]. DISCHARGE DISPOSITION: Home. PRIMARY DISCHARGE DIAGNOSES: Mechanical fall, ruled out cerebrovascular accident, small patent foramen ovale. SECONDARY DISCHARGE DIAGNOSES: History of recent cerebrovascular accident, hypertension dyslipidemia, tobacco abuse disorder. PRIMARY PROCEDURE/OPERATION: Transesophageal echocardiography. RADIOLOGICAL INVESTIGATION: CT brain negative for any acute process. CT grayling of [place] angiography negative for any acute process. CT cervical spine negative for any fracture or dislocation. MRI brain did not show any new stroke. Echocardiography showed possible vegetation over aortic wall, but transesophageal echocardiography showed small patent foramen ovale. SIGNIFICANT LABS: CBC, BMP, everything was normal. DISCHARGE MEDICATIONS: The patient will continue all her previous medication: 1. Aspirin 325 mg p.o. daily. 2. Lipitor 40 mg p.o. at bedtime. 3. Depakote 500 mg daily. 4. Amlodipine 10 mg p.o. daily. 5. Lisinopril 30 mg b.i.d. CONTRAINDICATION: None. CODE STATUS: Full code. INPATIENT OPERATING ENGINEER APPRENTICE: Dr. Leija was consulted for NIKIA. Dr. Geoff Hollins was following while in hospital. TEST RESULTS PENDING ON DISCHARGE: None. ALLERGIES: NO KNOWN DRUG ALLERGIES. DISCHARGE PLAN: Posthospital, the patient will follow up with primary care physician. HOSPITAL COURSE: A 48-year-old female, who had recent stroke who had mechanical fall at home and subsequently, she was brought to the ER. The patient was admitted for rule out stroke. All stroke workup came back negative. Echocardiography suspected some vegetation and that is why we did NIKIA, which showed small patent foramen ovale. The patient is already on medical therapy. She will continue the same home medication upon discharge. The patient is seen and examined at bedside today. Please see my progress note from today for further details. Job ID: [id number]
--- NOTE | 2018-06-13 21:38 | ECHO ---
DATE OF PROCEDURE: 06/13/18 48-year-old woman with a CVA. DESCRIPTION OF PROCEDURE: The patient was taken to the PACU. The patient was sedated by anesthesiology. A transesophageal probe was placed into the distal esophagus and stomach. Echocardiographic images were obtained. The transesophageal probe was removed. FINDINGS: 1. Normal left ventricular systolic function. 2. The aortic valve leaflets are mildly thickened. 3. Normal mitral valve. 4. Mild tricuspid regurgitation. 5. PFO was noted by contrast bubble exam. 6. Atherosclerotic debris in the descending aorta. IMPRESSION: PFO with a small interatrial aneurysm. MTDD
== END 2018-06-13 18:27 | disposition home or self-care (01) ==
LOC: ERS 14:33 → 2SE 21:33
PROVIDERS: ADMIT Internal Medicine; ATTEND Internal Medicine
PROC: B24BZZ4 Ultrasonography of Heart with Aorta, Transesophageal (ICD-10-PCS; principal; 2018-06-13)
DX: R47.81 Slurred speech (principal); G81.94 Hemiplegia, unspecified affecting left nondominant side; I07.1 Rheumatic tricuspid insufficiency; I70.0 Atherosclerosis of aorta; Q21.1 Atrial septal defect; I10 Essential (primary) hypertension; E78.5 Hyperlipidemia, unspecified; G43.909 Migraine, unspecified, not intractable, without status migrainosus; F31.9 Bipolar disorder, unspecified; F41.9 Anxiety disorder, unspecified; Z87.891 Personal history of nicotine dependence; Z86.73 Personal history of transient ischemic attack (TIA), and cerebral infarction without residual deficits; Z79.82 Long term (current) use of aspirin; Z79.899 Other long term (current) drug therapy; W19.XXXA Unspecified fall, initial encounter; Y92.009 Unspecified place in unspecified non-institutional (private) residence as the place of occurrence of the external cause
CPT/HCPCS: 36415; 70450; 70496; 70551; 72125; 80048; 80053; 80061; 84484; 85025; 87040; 93005; 93306; 93312; 96360; 96361; 96372; G0378; G8978-GP-CK; G8978-GP-CL; G8979-GP-CI; G8979-GP-CK; G8987-GO-CK; G8988-GO-CI; G9168-GN-CJ; G9169-GN-CJ; J1650; J2250; J2704

== ENCOUNTER 2018-07-16 15:19 | Emergency (ER) | payer SELFPAY ==
[2018-07-16 16:43] LABS: #Basophils 0.1 thou/uL (0.0-0.2); #Eosinphils 0.4 thou/uL (0.0-0.7); #Monocytes 0.7 thou/uL (0.11-0.59); #Neutrophils 4.5 thou/uL (1.40-6.50); %Basophils 1.3 % (0.0-1.0); %Lymphocytes 25.7 % (21.0-51.0); %Monocytes 9.4 % (0.0-10.0); %Neutrophils 58.6 % (42.0-75.0); Hemoglobin 14.3 g/dL (12.0-16.0); Mean Corpuscular HGB CONC 34.2 g/dL (32.0-36.0); Mean Corpuscular Hemoglobin 29.2 pg (27.0-31.0); Mean Corpuscular Volume 85.5 fL (78.0-98.0); Mean Platelet Volume 8.6 fL (7.4-10.4); Platelet Count 270 thou/uL (130-400); RBC Distribution Width 12.3 % (11.5-14.5); Red Blood Cell (RBC) Count 4.88 mill/uL (4.20-5.40); White Blood Cell (WBC) Count 7.6 thou/uL (4.8-10.8)
[2018-07-16 17:08] LABS: ALT (SGPT) 11 U/L (8-55); AST (SGOT) 11 U/L (5-34); Albumin 3.8 g/dL (3.5-5.0); Alkaline Phosphatase 93 U/L (40-150); Anion Gap 14 mmol/L (10-20); BUN (Urea Nitrogen) 15 mg/dL (7.0-18.7); Bilirubin, Total 0.5 mg/dL (0.2-1.2); Calc. Creatinine Clearance 0 mL/min (70-130); Calcium 9.8 mg/dL (7.8-10.44); Carbon Dioxide 23 mmol/L (22-29); Chloride 108 mmol/L (98-107); Estimated GFR-MDRD 69; Globulin 3.1 g/dL (2.4-3.5); Glucose 100 mg/dL (70-105); Potassium 3.6 mmol/L (3.5-5.1); Protein, Total 6.9 g/dL (6.0-8.3); Sodium 141 mmol/L (136-145)
[2018-07-16 18:48] LABS: Bilirubin Negative (Negative); Blood, Urine Negative (Negative); Clarity CLEAR (Clear); Glucose, Urine (Dipstick) Negative (Negative); Leukocyte Negative (Negative); Nitrite Negative (Negative); Protein, Urine (Dipstick) Negative (Neg-Trace); Specific Gravity, Urine 1.011 (1.002-1.036); Urobilinogen 0.2 mg/dL (0.2-1.0); pH, Urine 7.5 (5.0-9.0)
--- NOTE | 2018-07-19 10:50 | EKG ---
Test Reason : ANXIETY Blood Pressure : / mmHG Vent. Rate : 091 BPM Atrial Rate : 091 BPM P-R Int : 152 ms QRS Dur : 084 ms QT Int : 382 ms P-R-T Axes : 046 017 044 degrees QTc Int : 469 ms Normal sinus rhythm Possible Left atrial enlargement Septal infarct , age undetermined Abnormal ECG Confirmed by ELIZABETH CORCORAN DO ([id number]), photo editor EMILI MALDONADO ([id number]) on 07/19/2018 10:50:06 AM Referred By: Confirmed By:ELIZABETH CORCORAN DO
== END 2018-07-16 18:52 | disposition home or self-care (01) ==
LOC: ERS 15:19
DX: R53.1 Weakness (principal); Z86.73 Personal history of transient ischemic attack (TIA), and cerebral infarction without residual deficits; E78.5 Hyperlipidemia, unspecified; I10 Essential (primary) hypertension; G43.909 Migraine, unspecified, not intractable, without status migrainosus; F17.210 Nicotine dependence, cigarettes, uncomplicated; F41.9 Anxiety disorder, unspecified; F31.9 Bipolar disorder, unspecified; Z79.899 Other long term (current) drug therapy
CPT/HCPCS: 36415; 80053; 81003; 84443; 85025; 93005; 96360

== ENCOUNTER 2018-08-03 13:09 | Emergency (ER) | payer SELFPAY ==
--- NOTE | 2018-08-03 14:20 | RAD ---
RIGHT HAND 3 VIEWS: Date: 08/03/18 HISTORY: Hand pain x1 week. FINDINGS: There are minimal osteoarthritic changes of the hand and wrist. I do not see any signs of any acute b blaine injury. IMPRESSION: Minimal arthritic changes of the hand. POS: [facility]
== END 2018-08-03 13:53 | disposition federal hospital, planned readmission (88) ==
LOC: ERS 13:09
DX: S60.00XA Contusion of unspecified finger without damage to nail, initial encounter (principal); E78.5 Hyperlipidemia, unspecified; I10 Essential (primary) hypertension; G43.909 Migraine, unspecified, not intractable, without status migrainosus; F41.9 Anxiety disorder, unspecified; F31.9 Bipolar disorder, unspecified; Z86.73 Personal history of transient ischemic attack (TIA), and cerebral infarction without residual deficits; Z87.891 Personal history of nicotine dependence; Z79.82 Long term (current) use of aspirin; Z79.899 Other long term (current) drug therapy; W23.0XXA Caught, crushed, jammed, or pinched between moving objects, initial encounter

== ENCOUNTER 2018-10-17 23:47 | Emergency (ER) | payer MEDICAID, SELFPAY ==
[2018-10-18 00:36] LABS: #Basophils 0.1 thou/uL (0.0-0.2); #Eosinphils 0.6 thou/uL (0.0-0.7); #Monocytes 0.8 thou/uL (0.11-0.59); #Neutrophils 4.7 thou/uL (1.40-6.50); %Basophils 1.2 % (0.0-1.0); %Eosinophils 6.2 % (0.0-10.0); %Lymphocytes 32.5 % (21.0-51.0); %Monocytes 9.2 % (0.0-10.0); %Neutrophils 50.9 % (42.0-75.0); Hemoglobin 13.6 g/dL (12.0-16.0); Mean Corpuscular Hemoglobin 29.6 pg (27.0-31.0); Mean Platelet Volume 8.2 fL (7.4-10.4); Platelet Count 286 thou/uL (130-400); RBC Distribution Width 11.4 % (11.5-14.5); Red Blood Cell (RBC) Count 4.59 mill/uL (4.20-5.40); White Blood Cell (WBC) Count 9.1 thou/uL (4.8-10.8)
[2018-10-18 00:50] LABS: ALT (SGPT) 22 U/L (8-55); AST (SGOT) 16 U/L (5-34); Alkaline Phosphatase 117 U/L (40-150); Anion Gap 16 mmol/L (10-20); BUN (Urea Nitrogen) 14 mg/dL (7.0-18.7); Bilirubin, Total 0.2 mg/dL (0.2-1.2); CK (CPK) 66 U/L (29-168); Calc. Creatinine Clearance 0 mL/min (70-130); Calcium 9.7 mg/dL (7.8-10.44); Carbon Dioxide 24 mmol/L (22-29); Chloride 105 mmol/L (98-107); Estimated GFR-MDRD Greater than 90; Globulin 3.3 g/dL (2.4-3.5); Glucose 105 mg/dL (70-105); Lipase 40 U/L (8-78); Potassium 3.6 mmol/L (3.5-5.1); Protein, Total 7.3 g/dL (6.0-8.3); Sodium 141 mmol/L (136-145)
[2018-10-18] MEDS ORDERED: Acetaminophen 500 MG TAB ONE (02:27)
[2018-10-18 03:31] LABS: Troponin I Less than 0.010 ng/mL (< 0.028)
--- NOTE | 2018-10-18 09:20 | RAD ---
EXAM: CHEST ONE VIEW HISTORY: Chest pain COMPARISON: 05/21/2018 FINDINGS: The cardiac silhouette and pulmonary vasculature is within normal limits. The lungs are clear. The os seous structures are intact. Chest is stable from prior exam. IMPRESSION: No acute cardiopulmonary process.
== END 2018-10-18 03:40 | disposition home or self-care (01) ==
LOC: ERS 23:47
DX: R07.9 Chest pain, unspecified (principal); E78.5 Hyperlipidemia, unspecified; I10 Essential (primary) hypertension; G43.909 Migraine, unspecified, not intractable, without status migrainosus; Z87.891 Personal history of nicotine dependence; Z79.899 Other long term (current) drug therapy
CPT/HCPCS: 36415; 71045; 80053; 82550; 83690; 84484; 85025; 93005; 96360

== ENCOUNTER 2018-11-05 18:23 | Emergency (ER) | payer MEDICAID, OTHER ==
--- NOTE | 2018-11-05 18:43 | RAD ---
XR Chest 1 View Portable History: [Dyspnea] Comparison: Radiograph October 17, 2018 Findings: The lungs are clear. No pneumothorax or effusion. Cardiac silhouette and mediastinal contou rs are within normal limits. Impression: No acute intrathoracic abnormality.
[2018-11-05 18:47] LABS: #Basophils 0.1 thou/uL (0.0-0.2); #Eosinphils 0.4 thou/uL (0.0-0.7); #Lymphocytes 2.2 thou/uL (1.20-3.40); #Monocytes 0.9 thou/uL (0.11-0.59); #Neutrophils 5.5 thou/uL (1.40-6.50); %Basophils 1.3 % (0.0-1.0); %Eosinophils 4.7 % (0.0-10.0); %Lymphocytes 24.2 % (21.0-51.0); %Monocytes 9.4 % (0.0-10.0); %Neutrophils 60.4 % (42.0-75.0); Hemoglobin 14.2 g/dL (12.0-16.0); Mean Corpuscular HGB CONC 33.6 g/dL (32.0-36.0); Mean Corpuscular Hemoglobin 29.4 pg (27.0-31.0); Mean Corpuscular Volume 87.4 fL (78.0-98.0); Mean Platelet Volume 8.3 fL (7.4-10.4); Platelet Count 251 thou/uL (130-400); RBC Distribution Width 11.8 % (11.5-14.5); Red Blood Cell (RBC) Count 4.85 mill/uL (4.20-5.40); White Blood Cell (WBC) Count 9.1 thou/uL (4.8-10.8)
[2018-11-05 19:08] LABS: ALT (SGPT) 19 U/L (8-55); AST (SGOT) 18 U/L (5-34); Alkaline Phosphatase 105 U/L (40-150); Anion Gap 13 mmol/L (10-20); BUN (Urea Nitrogen) 14 mg/dL (7.0-18.7); Bilirubin, Total 0.2 mg/dL (0.2-1.2); Calc. Creatinine Clearance 0 mL/min (70-130); Calcium 9.3 mg/dL (7.8-10.44); Carbon Dioxide 22 mmol/L (22-29); Chloride 108 mmol/L (98-107); Estimated GFR-MDRD Greater than 90; Globulin 3.3 g/dL (2.4-3.5); Glucose 93 mg/dL (70-105); Potassium 4.1 mmol/L (3.5-5.1); Protein, Total 7.3 g/dL (6.0-8.3); Sodium 139 mmol/L (136-145)
[2018-11-05 19:15] LABS: Bilirubin Negative (Negative); Blood, Urine Trace (Negative); Clarity CLEAR (Clear); Glucose, Urine (Dipstick) Negative (Negative); Leukocyte Negative (Negative); Nitrite Negative (Negative); Protein, Urine (Dipstick) Negative (Neg-Trace); Specific Gravity, Urine 1.019 (1.002-1.036); Urobilinogen 0.2 mg/dL (0.2-1.0)
[2018-11-05 19:17] LABS: Bacteria/HPF 1+ HPF (None Seen); Hyaline Casts/LPF 0-3 HYALINE CAST LPF (0-3 Hyaline); RBC/HPF 0-3 HPF (0-3); WBC/HPF 0-3 HPF (0-3)
[2018-11-05] MEDS ORDERED: Acetaminophen 500 MG TAB ONE (19:38)
--- NOTE | 2018-11-08 17:22 | EKG ---
Test Reason : SOB Blood Pressure : / mmHG Vent. Rate : 085 BPM Atrial Rate : 085 BPM P-R Int : 160 ms QRS Dur : 078 ms QT Int : 376 ms P-R-T Axes : 049 -18 039 degrees QTc Int : 447 ms Normal sinus rhythm Normal ECG Confirmed by REY RODRIGUEZ ([id number]), graphics editor JANETH AKHTAR ([id number]) on 11/08/2018 5:22:23 PM Referred By: JENNIFER Confirmed By:REY RODRIGUEZ
== END 2018-11-05 19:45 | disposition home or self-care (01) ==
LOC: ERS 18:23
DX: I10 Essential (primary) hypertension (principal); E78.5 Hyperlipidemia, unspecified; G43.909 Migraine, unspecified, not intractable, without status migrainosus; F41.9 Anxiety disorder, unspecified; F31.9 Bipolar disorder, unspecified; Z87.891 Personal history of nicotine dependence; Z86.73 Personal history of transient ischemic attack (TIA), and cerebral infarction without residual deficits
CPT/HCPCS: 36415; 71045; 80053; 81003; 81015; 84484; 85025; 93005

== ENCOUNTER 2018-11-26 22:13 | Emergency (ER) | payer OTHER ==
[2018-11-26] MEDS ORDERED: Lidocaine 1% w/Epinephrine 1:100K 20 ML VIAL ONE (22:26)
[2018-11-26] MEDS ORDERED: Bacitracin Zinc 1 Packet ONE (22:56)
[2018-11-26] MEDS ORDERED: Adacel (T-DAP) 0.5 ML SYRINGE ONE (23:03)
== END 2018-11-26 23:15 | disposition home or self-care (01) ==
LOC: ERS 22:13
DX: S51.811A Laceration without foreign body of right forearm, initial encounter (principal); E78.5 Hyperlipidemia, unspecified; I10 Essential (primary) hypertension; G43.909 Migraine, unspecified, not intractable, without status migrainosus; Z86.73 Personal history of transient ischemic attack (TIA), and cerebral infarction without residual deficits; F41.9 Anxiety disorder, unspecified; F31.9 Bipolar disorder, unspecified; Z87.891 Personal history of nicotine dependence; Z79.899 Other long term (current) drug therapy; Z23 Encounter for immunization; W25.XXXA Contact with sharp glass, initial encounter
CPT/HCPCS: 12002; 90471; 90715; J2001

== ENCOUNTER 2018-12-13 12:22 | Emergency (ER) | payer OTHER | END 2018-12-13 13:20 | disposition home or self-care (01) | LOC: ERS 12:22 | DX: S51.811D Laceration without foreign body of right forearm, subsequent encounter (principal); I10 Essential (primary) hypertension; F41.9 Anxiety disorder, unspecified; F31.9 Bipolar disorder, unspecified; G43.909 Migraine, unspecified, not intractable, without status migrainosus; Z87.891 Personal history of nicotine dependence; Z86.73 Personal history of transient ischemic attack (TIA), and cerebral infarction without residual deficits; X58.XXXD Exposure to other specified factors, subsequent encounter ==

== ENCOUNTER 2019-02-11 15:03 | Observation (INO) | payer OTHER ==
[2019-02-11] MEDS ORDERED: ISOVUE-370 76%-LOCM 1 ML ONE (15:47)
[2019-02-11 16:01] LABS: #Basophils 0.1 thou/uL (0.0-0.2); #Eosinphils 0.5 thou/uL (0.0-0.7); #Lymphocytes 2.6 thou/uL (1.20-3.40); #Monocytes 0.8 thou/uL (0.11-0.59); #Neutrophils 3.9 thou/uL (1.40-6.50); %Basophils 1.3 % (0.0-1.0); %Eosinophils 5.8 % (0.0-10.0); %Lymphocytes 32.7 % (21.0-51.0); %Monocytes 10.2 % (0.0-10.0); %Neutrophils 50.1 % (42.0-75.0); Hemoglobin 13.6 g/dL (12.0-16.0); Mean Corpuscular HGB CONC 34.5 g/dL (32.0-36.0); Mean Corpuscular Hemoglobin 29.7 pg (27.0-31.0); Mean Corpuscular Volume 86.2 fL (78.0-98.0); Mean Platelet Volume 8.5 fL (7.4-10.4); Platelet Count 252 thou/uL (130-400); RBC Distribution Width 12.3 % (11.5-14.5); Red Blood Cell (RBC) Count 4.59 mill/uL (4.20-5.40); White Blood Cell (WBC) Count 7.9 thou/uL (4.8-10.8)
[2019-02-11 16:07] LABS: INR-International Normal Ratio 0.9; PTT 31.4 SEC (22.9-36.1); Prothrombin Time 11.7 SEC (12.0-14.7)
[2019-02-11 16:22] LABS: ALT (SGPT) 16 U/L (8-55); AST (SGOT) 19 U/L (5-34); Alkaline Phosphatase 117 U/L (40-150); Anion Gap 12 mmol/L (10-20); BUN (Urea Nitrogen) 23 mg/dL (7.0-18.7); Bilirubin, Total 0.3 mg/dL (0.2-1.2); Calc. Creatinine Clearance 0 mL/min (70-130); Calcium 9.4 mg/dL (7.8-10.44); Carbon Dioxide 23 mmol/L (22-29); Chloride 108 mmol/L (98-107); Estimated GFR-MDRD 81; Globulin 3.1 g/dL (2.4-3.5); Glucose 95 mg/dL (70-105); Potassium 3.8 mmol/L (3.5-5.1); Protein, Total 7.1 g/dL (6.0-8.3); Sodium 139 mmol/L (136-145)
[2019-02-11] MEDS ORDERED: Metoclopramide HCl 10 MG/2 ML VIAL ONE (16:32)
[2019-02-11] MEDS ORDERED: diphenhydrAMINE 50 MG/ML VIAL ONE (16:32)
[2019-02-11] MEDS ORDERED: Aspirin Chewable 81 MG TAB ONE (17:10)
--- NOTE | 2019-02-11 19:09 | CT ---
EXAM: NONCONTRAST HEAD CT CT ANGIOGRAM OF THE HEAD CT ANGIOGRAM OF THE NECK: 02/11/19 HISTORY: Previous CVA. Difficulty speaking and slower movements. Left sided deficit. FINDINGS: Noncontrast head CT: No parenchymal hemorrhage. No extra-axial hematoma. No midline shift. Basilar cisterns are patent. Br ain volume is age-appropriate. Cortical krueger-white matter differentiation is preserved. No evidence of hydrocephalus. Stable hypodensity of the posterior limb of the right internal capsule , likely due to remote lacunar infarct. The calvarium is intact. Adequate aeration of the sinuses and mastoid air cells. Postcontrast head CT: No pathologic enhancement of the brain parenchyma. Postcontrast soft tissue neck CT: Bilateral ocular lenses are appropriately located. Both globes are intact. Retrobulbar fat is preserv ed. Symmetric attenuation of the optic nerves and ocular rectus muscles. There appears to be asymmetr ic fullness of the right nasopharynx as well as the posterior left oropharynx. Direct visualization i s recommended. Limited evaluation of the oral cavity due to dental amalgam artifact. Midline fatty ra phae of the tongue appears to be preserved. There is adequate aeration of the sinuses and mastoid air cells. No prevertebral soft tissue swelling. Appropriate attenuation of the parotid and submandibular glands. Symmetric attenuation of the sternoc leidomastoid muscles. There are borderline bilateral enlarged soft tissue neck lymph nodes of uncertain significance. Enlar ged right level I lymph node measures 1.6 x 0.8 cm. Enlarged right level II lymph node has a rounded appearance, measuring 1.0 x 0.7 cm. Cervical spine vertebral body height is maintained. There is no fracture. Varying degrees of central canal stenosis and foraminal narrowing on the basis of degenerative change. Upper mediastinum and lung apices are unremarkable. CT angiogram: Aortic arch has appropriate enhancement and luminal diameter. Right carotid: The right carotid artery origin, innominate artery, common carotid artery, carotid bifurcation, and i nternal carotid artery have appropriate enhancement and luminal diameter. There is calcified plaque w ithout significant stenosis in the right carotid bifurcation. Left carotid: The left carotid artery origin, common carotid artery, carotid bifurcation, and internal carotid art mirtha have appropriate enhancement and luminal diameter. There is calcified plaque without significant stenosis in the left carotid bifurcation. Cervical vertebral arteries are patent throughout their cou rse in the neck. Left vertebral artery is slightly dominant. The visualized subclavian arteries are p atent. CT angiogram of the head: Distal cervical and intracranial internal carotid arteries have symmetric enhancement and luminal teresita meter. There is atherosclerosis involving both cavernous segments. Anterior circulation: Symmetric enhancement and luminal diameter involving bilateral A1 and M1 segments. Posterior circulation: Limited evaluation of bilateral PICA artery origins. Both vertebral arteries supply normal appearing basilar artery. There is symmetric enhancement and luminal diameter of bilateral P1 segments. IMPRESSION: 1. Unremarkable CT angiogram of the [place] of [place]. 2. No evidence of significant stenosis with regards to the cervical carotid arteries, based upon NASCET criteria. 3. Enlarged soft tissue neck lymph nodes, nonspecific. Correlate clinically. 4. Asymmetric fullness of the posterior left oropharynx as well as the right nasopharynx. The ri ght fossa of [place] appears to be effaced. Given aforementioned lymphadenopathy, direct visuali zation is recommended. Results of the study discussed with Dr. Burk, 02/11/19 at 4:52 p.m. Code CR POS: OFF
[2019-02-12] MEDS ORDERED: Ondansetron ODT 4 MG TAB PO PRN (00:36)
[2019-02-12] MEDS ORDERED: hydrALAZINE 20 MG/ML VIAL SLOW IVP PRN (00:36)
[2019-02-12] MEDS ORDERED: Acetaminophen 500 MG TAB PO PRN (00:36)
[2019-02-12] MEDS ORDERED: Ondansetron PF 4 MG/2 ML Vial IVP PRN (00:36)
[2019-02-12 00:41] VITALS: BMI 32.8
[2019-02-12] MEDS ORDERED: Sodium Chloride 0.9% 1,000 ML IV SCH (00:45)
[2019-02-12] MEDS: Ketorolac Tromethamine 30 MG/ML VIAL IVP SCH ×2 (01:12→10:05)
[2019-02-12 05:15] LABS: Anion Gap 14 mmol/L (10-20); BUN (Urea Nitrogen) 19 mg/dL (7.0-18.7); Band 1 % (5-11); Calc. Creatinine Clearance 147 mL/min (70-130); Calcium 9.4 mg/dL (7.8-10.44); Carbon Dioxide 23 mmol/L (22-29); Cardiac Risk 4.1 (Less than 4.5); Chloride 107 mmol/L (98-107); Cholesterol 164 mg/dl (< 200 Desired); Eosinophils 3 % (0-10); Estimated GFR-MDRD 82; Glucose 97 mg/dL (70-105); HDL Cholesterol 40 mg/dL (>60 Neg Risk); Hemoglobin 13.5 g/dL (12.0-16.0); LDL Cholesterol, Calculated 59 mg/dL; Lymphocytes 19 % (21-51); MDiff Complete? YES; Mean Corpuscular HGB CONC 32.8 g/dL (32.0-36.0); Mean Corpuscular Hemoglobin 28.6 pg (27.0-31.0); Mean Corpuscular Volume 87.2 fL (78.0-98.0); Mean Platelet Volume 8.3 fL (7.4-10.4); Monocytes 8 % (0-10); Neutrophil 69 % (42-75); Platelet Count 242 thou/uL (130-400); Platelet Morphology Comment Appears Adequate; Potassium 3.8 mmol/L (3.5-5.1); RBC Distribution Width 12.4 % (11.5-14.5); RBC Morphology Normal; Red Blood Cell (RBC) Count 4.71 mill/uL (4.20-5.40); Sodium 140 mmol/L (136-145); Triglycerides 325 mg/dL (Less than 150); White Blood Cell (WBC) Count 6.2 thou/uL (4.8-10.8)
--- NOTE | 2019-02-12 08:37 | HP ---
PRIMARY CARE PROVIDER: At [facility], [place], [place]. CHIEF COMPLAINT: Headache. HISTORY OF PRESENT ILLNESS: This is a 49-year-old female who presents to [facility] complaining of severe left frontal throbbing headache which began approximately at 6 a.m. on 02/11/2019. The patient admits to a history of migraine headaches, intermittently managed with [id number] Tylenol and previously on [place] prescribed by her primary care provider for approximately 6 to 9 months. The patient ran out of the hydrocodone and uses Tylenol as a remained treatment. 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 The patient denied any visual disturbance, aura, ringing in the ears, difficulty with speech, or worsening unilateral weakness. The patient denied any trauma injury, recent dental procedures. The patient does state that her headaches are related to sinus pressure and had been treated intermittently with Flonase nasal spray. The patient does admit to history of previous CVA in 2018 with mild residual left-sided weakness. In the emergency room, the patient underwent general evaluation including noncontrast CT imaging of the brain in addition to angiography showing no acute process. The patient received aspirin 325 mg in addition to Benadryl, Reglan, and intravenous normal saline x1 L. The patient had improvement of her symptoms and was somnolent after the cocktail including Benadryl and Reglan. PAST MEDICAL HISTORY: 1. 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 2. Hyperlipidemia. 3. Hypertension. 4. Migraine headaches. PAST SURGICAL HISTORY: 1. Status post bilateral ankle repair. 2. Status post bilateral tubal ligation. PAST PSYCHIATRIC HISTORY: 1. Anxiety/depression. 2. Bipolar disorder. CURRENT MEDICATIONS: 1. Lisinopril 30 mg p.o. b.i.d. 2. Amlodipine 10 mg p.o. daily. 3. Enteric-coated aspirin 325 mg p.o. daily. 4. Lipitor 40 mg p.o. at bedtime. 5. Depakote 500 mg p.o. daily. ALLERGIES: NO KNOWN DRUG ALLERGIES. FAMILY HISTORY: No inheritable disease per the patient report. SOCIAL HISTORY: The patient is , residing in the [place], [place] area. Previous smoking history, quitting in late 2017. No alcohol or illicit drug use. REVIEW OF SYSTEMS: CONSTITUTIONAL: Negative for weight loss or gain, ability to conduct usual activities. SKIN: Negative for rash, itching. EYES: Negative for double vision, pain. ENT/MOUTH: Negative for nose bleeding, neck stiffness, pain, tenderness. CARDIOVASCULAR: Negative for palpitations, dyspnea on exertion, orthopnea. RESPIRATORY: Negative for shortness of breath, wheezing, cough, hemoptysis, fever or night sweats. GASTROINTESTINAL: Negative for poor appetite, abdominal pain, heartburn, nausea, vomiting, constipation, or diarrhea. GENITOURINARY: Negative for urgency, frequency, dysuria, nocturia. MUSCULOSKELETAL: Negative for pain, swelling. NEUROLOGIC/PSYCHIATRIC: Negative for anxiety, depression. ALLERGY/IMMUNOLOGIC: Negative for skin rash, bleeding tendency. Otherwise negative except as stated per HPI. PHYSICAL EXAMINATION: VITAL SIGNS: On admission, blood pressure 133/81, pulse 65, respiratory rate 18, temperature 97.9 degrees Fahrenheit, O2 saturation 97% on room air. GENERAL APPEARANCE: This is a 49-year-old female, somnolent, opens eyes and engages in direct conversation in no acute distress. HEENT: Pupils are equal, round, reactive to light and accommodation. Extraocular muscles are intact. No scleral icterus. No conjunctival injection. Nares patent. OP is clear. Teeth in fair repair. NECK: Supple. No cervical adenopathy. No thyromegaly. No carotid bruits. No JVD appreciated. Cervical spine with full active and passive range of motion. No meningeal signs noted. CHEST: Lungs are clear to auscultation bilaterally. CARDIOVASCULAR: S1, S2 without noted murmur, rub, or gallop. Abdomen rounded is extremely obese, soft, nontender, and nondistended. Bowel sounds are positive in all 4 quadrants. There is no hepatosplenomegaly. No abdominal bruits. No rebound or guarding appreciated. EXTREMITIES: Warm and dry with fair turgor. No clubbing, cyanosis, or asymmetric edema appreciated. Pulses palpable distally at the dorsalis pedis, posterior tibial, and popliteal arteries bilaterally. Capillary refill less than 2 seconds. NEUROLOGIC: Mild left upper extremity weakness compared to the right upper extremity. Full active and passive range of motion of all other extremities. Cranial nerves 2 through 12 are grossly intact. No other focal or lateralizing signs appreciated. PERTINENT LABORATORY AND X-RAY FINDINGS: Complete metabolic profile extremity laboratory findings BUN 23, creatinine 0.76, estimated GFR of 81. CBC within normal limits. PT 11.7, INR 0.9, and PTT 31.4. Noncontrast CT of the brain dated 02/11/2019 showed no acute intracranial process. CT angiogram of the head and neck showed no focal stenosis. Asymmetric fullness in the posterior left oropharynx and right nasopharynx noted. Unclear significance. It EKG dated 02/11/2019, by my interpretation, shows sinus mechanism with heart rates in the 70s. Normal R-wave progression noted in the precordial leads. Left axis deviation noted. No acute ST-T wave changes appreciated. ASSESSMENT/PLAN: 1. Acute migraine headache. The patient will be observed on the stroke unit. No current evidence to suggest acute cerebrovascular accident or transient ischemic attack. Continue acute management to include Toradol 30 mg IV q.6 hours, Tylenol 1000 mg p.o. q.6 hours p.r.n. Continue IV fluids with normal saline at 75 mL/h. Consider Imitrex if migraine headaches return. The patient may be a candidate for a prophylactic migraine therapy after discharge. 2. Dehydration. Continue intravenous normal saline at 75 mL/hour. Encourage increased p.o. intake of free water. 3. Hypertension. Resume home antihypertensive regimen and monitor clinical response. 4. Hyperlipidemia. Check fasting lipid profile in the a.m. Continue Lipitor 40 mg p.o. at bedtime. 5. Prophylaxis. SCDs while in bed. Pepcid 20 mg p.o. b.i.d. 6. Code status is full. Surrogate medical decision maker is the patient's spouse. Job ID: [id number]
[2019-02-12] MEDS ORDERED: Divalproex Sodium DR 500 MG TAB PO SCH (09:00)
[2019-02-12] MEDS ORDERED: Lisinopril 20 MG TAB PO SCH (09:00)
[2019-02-12] MEDS ORDERED: Famotidine 20 MG TAB PO SCH (09:00)
[2019-02-12] MEDS ORDERED: Amlodipine 10 MG TAB PO SCH (09:00)
[2019-02-12] MEDS ORDERED: Aspirin 325 mg Enteric Coated Tablet PO SCH (09:00)
--- NOTE | 2019-02-12 09:57 | DIS ---
DATE OF ADMISSION: 02/11/2019 DATE OF DISCHARGE: 02/12/2019 PRIMARY CARE PROVIDER: [facility]. DISCHARGE DIAGNOSES: 1. Acute severe migraine headache. 2. Hypertension. 3. Hyperlipidemia. 4. Obesity. 5. Prior cerebrovascular accident. HOSPITAL COURSE: A 49-year-old female with known history of hypertension, hyperlipidemia, migraine headache, and prior CVA with mild residual left-sided weakness, admitted due to acute persistent severe left frontal headache. The patient reportedly took some Tylenol and narcotic analgesic at home without any improvement, hence presentation to the ER. The patient was treated in the ER with a cocktail of aspirin, Benadryl, Reglan, and IV fluid. She, however, became somnolent and was admitted to the hospital and observed overnight. She reports improvement in headache and mental status has improved. The patient had breakfast and tolerated it well. She is therefore discharged to follow up with PCP. The patient also was advised to follow up with neurologist for further evaluation and possible commencement of migraine prophylaxis. PHYSICAL EXAMINATION: VITAL SIGNS: Temperature 97.7, pulse 61, respiratory rate 18, SpO2 of 98% on room air, and blood pressure is 131/83. GENERAL: Obese female, in no distress. Afebrile. Anicteric. Acyanotic. HEENT: Normocephalic, atraumatic. Oral mucosa is moist. CARDIOVASCULAR: Regular rhythm and rate with normal heart sounds 1 and 2. Soft systolic murmur maximal at the mitral area noted. PULMONARY: Good air entry bilaterally with no crackle or rhonchi or use of accessory muscles. GASTROINTESTINAL: Obese, soft, nontender, and nondistended with normal bowel sounds. EXTREMITIES: Grossly normal looking, atraumatic with no edema or erythema. CENTRAL NERVOUS SYSTEM: Conscious and alert, oriented x3 with appropriate mental status. Cranial nerves II through XII are grossly intact. The patient moves all extremities. DISPOSITION: Home. DISCHARGE CONDITION: Improved. DISCHARGE MEDICATIONS: 1. Lisinopril 20 mg p.o. b.i.d. 2. Amlodipine 10 mg p.o. daily. 3. Metoprolol succinate 50 mg p.o. daily. 4. Aspirin 325 mg p.o. daily. 5. Excedrin Migraine 2 caplets q.6 p.r.n. for headaches. 6. Lipitor 40 mg p.o. daily at bedtime. FOLLOWUP: 1. With [facility] in 3 days. 2. With neurologist, Dr. Hollins in 7 days. Job ID: [id number]
[2019-02-12 11:16] VITALS: BP 133/76; TEMP 97.6
[2019-02-12] MEDS ORDERED: Atorvastatin Calcium 40 MG TAB PO SCH (21:00)
[2019-02-17] MEDS ORDERED: Ibuprofen 200 MG TAB PO PRN (08:00)
--- NOTE | 2019-02-21 12:16 | EKG ---
Test Reason : Blood Pressure : / mmHG Vent. Rate : 074 BPM Atrial Rate : 074 BPM P-R Int : 164 ms QRS Dur : 086 ms QT Int : 412 ms P-R-T Axes : 045 -11 028 degrees QTc Int : 457 ms Normal sinus rhythm Normal ECG Confirmed by PADMINI MCKEE, KERRY Padron ([id number]), manager editorial EMILI MALDONADO ([id number]) on 02/21/2019 12:15:45 PM Referred By: Confirmed By:KERRY WASHINGTON MD
== END 2019-02-12 13:35 | disposition home or self-care (01) ==
LOC: ERS 15:03 → 2SE 18:00 → INTOOBSV 18:00
PROVIDERS: ADMIT Family Medicine; ATTEND Family Medicine
DX: G43.909 Migraine, unspecified, not intractable, without status migrainosus (principal); I69.354 Hemiplegia and hemiparesis following cerebral infarction affecting left non-dominant side; E78.5 Hyperlipidemia, unspecified; I10 Essential (primary) hypertension; F41.9 Anxiety disorder, unspecified; F31.9 Bipolar disorder, unspecified; E86.0 Dehydration; E66.9 Obesity, unspecified; Z68.32 Body mass index [BMI] 32.0-32.9, adult; Z87.891 Personal history of nicotine dependence; Z79.82 Long term (current) use of aspirin; Z79.899 Other long term (current) drug therapy
CPT/HCPCS: 36415; 70496; 70498; 80048; 80053; 80061; 84484; 85007; 85025; 85027; 85610; 85730; 93005; 96361; 96365; 96366; 96374; 96375; 96376; G0378; J1200; J1885; J2765; Q9966

== ENCOUNTER 2019-03-24 01:12 | Observation (INO) | payer OTHER ==
[2019-03-24] MEDS ORDERED: diphenhydrAMINE 50 MG/ML VIAL ONE (01:59)
[2019-03-24] MEDS ORDERED: Metoclopramide HCl 10 MG/2 ML VIAL ONE (01:59)
[2019-03-24 02:05] LABS: #Basophils 0.1 thou/uL (0.0-0.2); #Eosinphils 0.4 thou/uL (0.0-0.7); #Monocytes 0.7 thou/uL (0.11-0.59); #Neutrophils 3.9 thou/uL (1.40-6.50); %Basophils 1.3 % (0.0-1.0); %Eosinophils 5.5 % (0.0-10.0); %Lymphocytes 37.1 % (21.0-51.0); %Neutrophils 48.1 % (42.0-75.0); Hemoglobin 12.7 g/dL (12.0-16.0); Mean Corpuscular HGB CONC 34.6 g/dL (32.0-36.0); Mean Corpuscular Hemoglobin 29.8 pg (27.0-31.0); Mean Platelet Volume 8.3 fL (7.4-10.4); Platelet Count 243 thou/uL (130-400); RBC Distribution Width 12.1 % (11.5-14.5); Red Blood Cell (RBC) Count 4.26 mill/uL (4.20-5.40); White Blood Cell (WBC) Count 8.2 thou/uL (4.8-10.8)
[2019-03-24 02:27] LABS: ALT (SGPT) 18 U/L (8-55); AST (SGOT) 17 U/L (5-34); Albumin 3.8 g/dL (3.5-5.0); Alkaline Phosphatase 96 U/L (40-150); Anion Gap 12 mmol/L (10-20); BUN (Urea Nitrogen) 18 mg/dL (7.0-18.7); Bilirubin, Total 0.2 mg/dL (0.2-1.2); Calc. Creatinine Clearance 0 mL/min (70-130); Calcium 9.1 mg/dL (7.8-10.44); Carbon Dioxide 25 mmol/L (22-29); Chloride 107 mmol/L (98-107); Estimated GFR-MDRD 69; Globulin 2.8 g/dL (2.4-3.5); Glucose 104 mg/dL (70-105); Potassium 3.2 mmol/L (3.5-5.1); Protein, Total 6.6 g/dL (6.0-8.3); Sodium 141 mmol/L (136-145)
[2019-03-24] MEDS ORDERED: Aspirin Chewable 81 MG TAB ONE (02:39)
[2019-03-24] MEDS ORDERED: Potassium Chloride 20 MEQ TAB ONE (02:51)
[2019-03-24 03:32] LABS: Bilirubin Negative (Negative); Blood, Urine Trace (Negative); Glucose, Urine (Dipstick) Negative (Negative); Leukocyte Negative (Negative); Nitrite Negative (Negative); Protein, Urine (Dipstick) Negative (Neg-Trace); Urobilinogen 0.2 mg/dL (Less than 2)
[2019-03-24 03:43] LABS: Clarity Clear (Clear)
[2019-03-24 03:45] LABS: Bacteria/HPF None Seen HPF (None Seen); RBC/HPF 0-3 HPF (0-3); Squamous Epithelial None Seen HPF (0-3); WBC/HPF None Seen HPF (0-3)
[2019-03-24 05:12] VITALS: BMI 31.7
[2019-03-24 05:20] LABS: Troponin I Less than 0.010 ng/mL (< 0.028)
--- NOTE | 2019-03-24 07:51 | RAD ---
Portable frontal chest radiograph: 03/24/2019 COMPARISON: 11/05/2018 HISTORY: Headache, difficulty breathing FINDINGS: Lungs are clear. Heart and mediastinal contours appear within normal limits. IMPRESSION: No acute findings.
--- NOTE | 2019-03-24 07:56 | CT ---
PRELIMINARY REPORT/[facility]/EMERGENCY AFTER HOURS PROCEDURE: PROCEDURE INFORMATION: Exam: CT Head Without Contrast Exam date and time: 03/24/2019 2:01 AM Clinical history: 49 years old, female; Headache; Patient HX: PT reports to er with C/O GUTIERREZ 8/10 pain. PT reports previous HX of stroke TECHNIQUE: Imaging protocol: Computed tomography of the head without contrast. COMPARISON: No relevant prior studies available. FINDINGS: Brain: No loss of krueger-white differentiation. Diffuse cerebral age related volume loss and patchy low attenuation in the white matter compatible with chronic small vessel ischemic disease. No midline sh ift, mass, fluid collection, or evidence of hemorrhage. Chronic right thalamic and putaminal lacunar infarcts. Ventricles: Ventricular enlargement proportional to volume loss. Bones/joints: Unremarkable. No acute fracture. Sinuses: Visualized sinuses are unremarkable. No fluid levels. Mastoid air cells: Visualized mastoid air cells are well aerated. Soft tissues: Unremarkable. IMPRESSION: 1. Age related changes, no acute intracranial abnormality. 2. Chronic right thalamic and putaminal lacunar infarcts. Thank you for allowing us to participate in the care of your patient. Dictated and Authenticated by: Prosper Sow MD 03/24/2019 2:16 AM Central Time ([place] & [place]) FINAL REPORT EMERGENCY AFTER HOURS BRAIN CT WITHOUT IV CONTRAST: Date: 03/24/19 Time: 0202 hours IMPRESSION: Stable appearing age-related changes bilaterally. Right-sided lacunar infarct changes, stable. No mas s or bleed. Report in agreement with preliminary report given on-call by [facility]. POS: OFF
[2019-03-24 08:32] LABS: Troponin I 0.014 ng/mL (< 0.028)
--- NOTE | 2019-03-24 08:35 | RAD ---
RIGHT ANKLE 3 VIEWS: Date: 03/24/19 HISTORY: Pain following an injury with concern for lateral malleolus. FINDINGS/IMPRESSION: No fracture, dislocation, or other acute process. POS: OFF
--- NOTE | 2019-03-24 08:36 | RAD ---
RIGHT WRIST 3 VIEWS: Date: 03/24/19 HISTORY: Right wrist pain. FINDINGS/IMPRESSION: Minimal soft tissue swelling. No fracture, dislocation, or other acute process. POS: OFF
[2019-03-24] MEDS ORDERED: Amlodipine 10 MG TAB PO SCH (10:00)
[2019-03-24] MEDS ORDERED: Lisinopril 20 MG TAB PO SCH (10:00)
--- NOTE | 2019-03-24 10:53 | MRI ---
Brain MRI without contrast: 03/24/2019 COMPARISON: 06/12/2018 HISTORY: Headache, prior stroke TECHNIQUE: Multiplanar multisequence MR imaging of the brain is obtained without contrast FINDINGS: The diffusion weighted imaging demonstrates no evidence for acute infarction. The axial gradient echo imaging demonstrates no evidence for intracranial hemorrhage. Arterial flow voids at the axial level of the skull base appear unremarkable on the T2-weighted imagi ng. Numerous foci of increased T2 and FLAIR signal are seen scattered throughout the periventricular, liban p, and subcortical white matter, similar when compared to the prior examination. Regional bone marrow signal intensity appears grossly unremarkable. Sagittal T1-weighted imaging is s ignificantly limited by motion. There is mild mucosal thickening of the sphenoid sinuses, left ethmoid air cells, and left frontal sinus. IMPRESSION: Prominent stable white matter disease. No MR evidence of acute infarction or intracranial hemorrhage.
--- NOTE | 2019-03-24 15:41 | HP ---
HISTORY OF PRESENT ILLNESS: This patient is a 49-year-old female, who presented via the emergency department. The patient reported that she had a headache that started about 6:00 a.m. the day prior to presentation. It was primarily across the forehead and frontal area and was constant at 8/10. She stated it was similar to her prior migraines. She does not take any medication. She reported some slurred speech and lack of coordination, but not any specific falling. Subsequently, she later developed some pain in her right ankle and wrist, but again denied any falls or trauma. She later felt generally hot, diaphoretic, and weak, and therefore, she presented to the emergency department. At the time of the exam, the patient has received Benadryl and is generally sleepy. She does say her headache is feeling some better. REVIEW OF SYSTEMS: She denied nausea, vomiting, visual changes, or hearing changes. She did report some occasional cough, occasional palpitations, and some numbness or tingling in the right leg, which is currently resolved. All other systems reviewed. All pertinent positives and negatives noted in the history of present illness. PAST MEDICAL HISTORY: She has a history of reported ischemic stroke from 2018 with some left-sided weakness, hyperlipidemia, hypertension, migraines, anxiety, arthritis, some bipolar disorder. PAST SURGICAL HISTORY: Surgery in both ankles. She had tubal ligation. FAMILY HISTORY: Mother had an PA. SOCIAL HISTORY: The patient is a nonsmoker, she quit last year. She is kind of vague on her answers regarding drugs and alcohol. She is not , but does have a boyfriend. She is full code. Her daughter, Eulalia, present to be her surrogate decision maker. ALLERGIES: NONE. CURRENT MEDICATIONS: 1. Lisinopril 40 mg daily. 2. Atorvastatin 40 mg daily. 3. Amlodipine 10 mg daily. 4. Metoprolol 50 mg daily. PHYSICAL EXAMINATION: VITAL SIGNS: Temperature was 98.5, pulse 69, blood pressure 121/86, respirations 16, O2 saturation 96% on room air. GENERAL APPEARANCE: Age-appropriate female. She is generally sleepy and slightly sedated from the Benadryl. She does attempt to wake and stay awake long enough to answer questions, but tends to be falling asleep a lot. HEENT: Normocephalic and atraumatic. BOYD. No OP lesions. NECK: Supple and symmetric. HEART: Regular rate and rhythm without murmurs, gallops, or rubs. LUNGS: Clear to auscultation bilaterally with good chest wall expansion and air exchange. ABDOMEN: Soft, nontender, and nondistended. Positive bowel sounds. No masses. No organomegaly. EXTREMITIES: No cyanosis, clubbing, or edema. She appears to have 5/5 strength in both upper and lower extremities. Cognitively, she appears to be intact other than being sedated. LABORATORY DATA: White count 8.2, hemoglobin 12.7, platelets 243. Sodium 141, potassium 3.2, chloride 107, CO2 is 25, BUN 18, creatinine 0.87, glucose 104, AST 17, ALT 18. Troponin less than 0.01. BNP 12.5. Albumin 3.8. TSH is 0.6381. Urinalysis negative. IMAGING STUDIES: CT of the brain shows age-related changes, chronic right thalamic and putaminal lacunar infarcts. Chest x-ray, negative. Ankle x-ray on the right shows no acute processes. Right wrist x-ray shows minimal soft tissue swelling, but no other acute processes. IMPRESSION AND PLAN: 1. Headache with some subjective slurred speech. At this point, the patient remains somewhat sedated from having received Benadryl and Reglan in the emergency department for presumed migraine. We will go ahead and get an MRI given her history of prior strokes. We will get Physical Therapy evaluation and Neurology consult and get a lipid panel fasting in the morning assuming she is still here. 2. Hypokalemia. She received 30 mEq in the emergency department. We will continue to monitor. 3. Hypertension. Continue metoprolol, lisinopril, and amlodipine. 4. Hyperlipidemia. Continue with atorvastatin. 5. History of prior CVA. Continue with aspirin and statin. Job ID: [id number]
[2019-03-24] MEDS ORDERED: Ketorolac Tromethamine 30 MG/ML VIAL IM/IV SCH (17:30)
[2019-03-24] MEDS: Lisinopril 20 MG TAB PO SCH (20:30)
[2019-03-24] MEDS ORDERED: Atorvastatin Calcium 40 MG TAB PO SCH (21:00)
[2019-03-24] MEDS ORDERED: Aspirin/APAP/Caffeine Tab (Excedrin Migraine) PO PRN ×2 (22:40→22:42)
--- NOTE | 2019-03-24 23:56 | CON ---
DATE OF CONSULTATION: 03/24/2019 CONSULTING PHYSICIAN: Hospitalist Service. HISTORY OF PRESENT ILLNESS: Ms. Arreaga is a patient I have seen recently. She has a known history of migraine and hypertension. She came in with complaints of a frontal headache associated with some nausea, shortness of breath, dizziness and blurred vision. She had a routine lab work done, which was unremarkable. She has subsequently had an MRI of the brain done, which showed some small-vessel ischemic changes, but nothing acute. She is without any focal neurologic complaints. Her headache is about 50% better than where she started. She is nonfocal on exam. I suspect she just had a recurrent migraine. I gave her another shot of Toradol 30 mg now. She will be discharged home at your discretion. Job ID: [id number]
[2019-03-25] MEDS ORDERED: Ketorolac Tromethamine 30 MG/ML VIAL IM SCH (04:00)
[2019-03-25 05:18] LABS: Cardiac Risk 5.6 (Less than 4.5); Cholesterol 217 mg/dl (< 200 Desired); HDL Cholesterol 39 mg/dL (>60 Neg Risk); Triglycerides 595 mg/dL (Less than 150)
[2019-03-25] MEDS: Lisinopril 20 MG TAB PO SCH (08:21)
[2019-03-25] MEDS ORDERED: Aspirin 81 mg Enteric Coated Tablet PO SCH (09:00)
[2019-03-25] MEDS ORDERED: Amlodipine 10 MG TAB PO SCH (09:00)
[2019-03-25] MEDS ORDERED: Ketorolac Tromethamine 10 MG TAB PO SCH ×2 (10:15→13:00)
[2019-03-25 11:36] VITALS: TEMP 98.1
[2019-03-25 13:39] VITALS: BP 121/83
--- NOTE | 2019-03-26 13:25 | DIS ---
DATE OF ADMISSION: 03/24/2019 DATE OF DISCHARGE: 03/25/2019 DISCHARGE DIAGNOSES: 1. Migraine. 2. Dysarthria. 3. Hypertension. 4. Hyperlipidemia. 5. Hypokalemia. 6. History of cerebrovascular accident. 7. Abnormal CT scan from recent admission of the pharyngeal area. 8. Arthralgia of the right wrist and ankle. HISTORY OF PRESENT ILLNESS: This patient is a 49-year-old female with a history of migraine headaches, who had previously been admitted to this facility on 02/11/2019 with headache and some left-sided weakness. She did have a history of the prior CVA. She presented to the hospital with complaints of headache and slurred speech. She was thought to likely have migraine, was given aspirin, diphenhydramine, and metoclopramide. However, given her dysarthria, there was concern for stroke. She was also given aspirin and was noted to have some hypokalemia, was given potassium as well. She was then placed on observation status with a CT of the head actually showing age-related changes in chronic right thalamic and putaminal lacunar infarcts that are not new. She had x-rays in the ER as well of her right wrist and ankle, which were negative. The patient was placed on observation. She remained on telemetry. She was very groggy from the [facility] and [facility]. By that evening, the patient was seen in consultation by Dr. Hollins, who felt this was more likely migraine that it was related to TIA. She was given additional dose of Toradol and her headache was somewhat improved. She remained a bit sleepy because of the medications. By the following morning, headache was significantly improved and she was felt to be stable for discharge home. Reviewing her imaging from her previous admission with a CT angiogram, there was evidence of enlarged soft tissue, neck lymph node, which was nonspecific and some asymmetrical fullness in the posterior left oropharynx rather as well as the right nasopharynx. The right fossa of Rosenmuller appeared to be in face and there was recommendation for direct visualization given that the patient did have a MRI of the head on this admission, which did not reveal any new findings other than the prominent stable white matter disease. The patient was explained the findings on her prior CT scan and recommended to have outpatient followup with ENT to evaluate further. PHYSICAL EXAMINATION: VITAL SIGNS: On the day of discharge; temperature was 98.1, pulse 60, respirations 16, O2 saturation 100% on room air, and BP 124/89 up to 138/92. GENERAL: She was awake and alert. HEART: regular rate and rhythm without murmurs. LUNGS: Clear bilaterally. ABDOMEN: Soft, nontender, and nondistended. EXTREMITIES: No edema. NEUROLOGIC: The patient appears to be fully intact. Cognitively appropriate. Moves all extremities spontaneously, and was able to ambulate without difficulty. DISPOSITION: The patient is discharged to home. ACTIVITY: As tolerated. DISCHARGE INSTRUCTIONS: She is on a heart healthy diet. She will have Toradol 10 mg q.6 hours p.r.n. She will resume with her usual home medications and she is to follow up at [facility] and she is again encouraged to follow up with ENT to have some type of followup on the prior abnormal CT scan, which the patient states she knew well. Job ID: [id number]
== END 2019-03-25 13:32 | disposition home or self-care (01) ==
LOC: ERS 01:12 → 2SE 04:42
PROVIDERS: ADMIT Hospitalist; ATTEND Hospitalist
DX: G43.909 Migraine, unspecified, not intractable, without status migrainosus (principal); R47.1 Dysarthria and anarthria; I10 Essential (primary) hypertension; E78.5 Hyperlipidemia, unspecified; E87.6 Hypokalemia; M25.531 Pain in right wrist; M25.571 Pain in right ankle and joints of right foot; F41.9 Anxiety disorder, unspecified; F31.9 Bipolar disorder, unspecified; M19.90 Unspecified osteoarthritis, unspecified site; Z86.73 Personal history of transient ischemic attack (TIA), and cerebral infarction without residual deficits; Z87.891 Personal history of nicotine dependence; Z79.82 Long term (current) use of aspirin; Z79.899 Other long term (current) drug therapy
CPT/HCPCS: 36415; 70450; 70551; 71045; 80053; 80061; 81003; 81015; 83880; 84443; 84484; 85025; 90471; 90732; 96365; 96375; 96376; G0009; G0378; J1200; J1885; J2765

== ENCOUNTER 2019-08-18 04:12 | Observation (INO) | payer OTHER ==
[2019-08-18] MEDS ORDERED: diphenhydrAMINE 50 MG/ML VIAL ONE (04:52)
[2019-08-18] MEDS ORDERED: Metoclopramide HCl 10 MG/2 ML VIAL ONE (04:52)
[2019-08-18 05:30] LABS: #Basophils 0.1 thou/uL (0.0-0.2); #Eosinphils 0.4 thou/uL (0.0-0.7); #Lymphocytes 2.9 thou/uL (1.20-3.40); #Monocytes 0.7 thou/uL (0.11-0.59); #Neutrophils 4.7 thou/uL (1.40-6.50); %Eosinophils 4.1 % (0.0-10.0); %Lymphocytes 32.8 % (21.0-51.0); %Neutrophils 54.2 % (42.0-75.0); Hemoglobin 13.2 g/dL (12.0-16.0); Mean Corpuscular Hemoglobin 28.2 pg (27.0-31.0); Mean Corpuscular Volume 85.5 fL (78.0-98.0); Mean Platelet Volume 8.2 fL (7.4-10.4); Platelet Count 278 thou/uL (130-400); RBC Distribution Width 12.5 % (11.5-14.5); Red Blood Cell (RBC) Count 4.68 mill/uL (4.20-5.40); White Blood Cell (WBC) Count 8.8 thou/uL (4.8-10.8)
[2019-08-18 05:49] LABS: ALT (SGPT) 24 U/L (8-55); AST (SGOT) 17 U/L (5-34); Albumin 3.8 g/dL (3.5-5.0); Alkaline Phosphatase 109 U/L (40-110); Anion Gap 11 mmol/L (10-20); BUN (Urea Nitrogen) 11 mg/dL (7.0-18.7); Bilirubin, Total 0.2 mg/dL (0.2-1.2); Calc. Creatinine Clearance 0 mL/min (70-130); Calcium 8.8 mg/dL (7.8-10.44); Carbon Dioxide 26 mmol/L (22-29); Chloride 107 mmol/L (98-107); Estimated GFR-MDRD 79; Globulin 2.6 g/dL (2.4-3.5); Glucose 98 mg/dL (70-105); Potassium 3.4 mmol/L (3.5-5.1); Protein, Total 6.4 g/dL (6.0-8.3); Sodium 141 mmol/L (136-145)
[2019-08-18] MEDS ORDERED: Aspirin 325 MG TAB ONE (06:54)
--- NOTE | 2019-08-18 07:00 | CT ---
CT OF THE BRAIN WITHOUT CONTRAST: Date: 08/18/2019 COMPARISON: 03/24/19. HISTORY: Headache for past 2 days. TECHNIQUE: Multiple contiguous axial images were obtained in a CT of the brain without contrast. FINDINGS: There are scattered hypodensities in the subcortical and periventricular white matter, likely seconda ry to small vessel ischemic disease. No large confluent infarction is seen. There is no evidence of h ydrocephalus, intracranial hemorrhage, or extra-axial fluid collection. The calvarium and overlying soft tissues are unremarkable. The visualized paranasal sinuses and masto id air cells are well aerated. IMPRESSION: No evidence of acute intracranial abnormality. POS: C
[2019-08-18 10:15] VITALS: BMI 30.7
[2019-08-18] MEDS ORDERED: Acetaminophen 325 MG TAB PO PRN (13:13)
[2019-08-18] MEDS ORDERED: Aspirin/APAP/Caffeine Tab (Excedrin Migraine) PO PRN (13:17)
[2019-08-18] MEDS ORDERED: Acetaminophen 650 MG/20.3 ML UDCUP PO PRN (13:20)
[2019-08-18] MEDS ORDERED: Lisinopril 20 MG TAB PO SCH (13:30)
[2019-08-18] MEDS ORDERED: Amlodipine 10 MG TAB PO SCH (15:15)
[2019-08-18] MEDS: Sodium Chloride 0.9% 1,000 ML IV SCH (15:37)
[2019-08-18] MEDS: Ketorolac Tromethamine 30 MG/ML VIAL IVP PRN (18:23)
--- NOTE | 2019-08-18 18:27 | PDOC.HHP ---
Hospitalist HPI - History of Present Illness headache History of Present Illness: 49yo F w/ MHx of migraine, reported ischemic stroke with left residual weakness (2018, though extensive subsequent imaging for similar presentations were unremarkable), HTN, anxiety, and bipolar presents for a headache. Similar to previous presentations, reports that headache started early in the morning, pressure like, spread from back to front, constant, and 8/10 in intensity. She endorses such headaches in the past that were relieved specifically by benadryl and reglan combination. Of note, has run out of her antihypertensive medications. on encounter, lying in bed and appears drowsy and in no apparent distress after receiving benadryl and reglan IV in ED. Endorses improvement of headache and denies fever, chills, change in vision, worsening facial asymmetry, dysarthria, dysphagia, difficulty swallowing, focal weakness, nausea, vomiting, recent trauma or fall. ED Course: In the ED, CT head was unremarkable. She was administered reglan and benadryl and admitted for further observation Hospitalist ROS - Review of Systems Constitutional: denies: fever, chills, sweats, weakness, malaise, other Eyes: denies: vision change ENT: denies: ear pain, ear discharge, nose pain, nose discharge, nose congestion , mouth pain Respiratory: denies: cough, shortness of breath, SOB with excertion Cardiovascular: denies: chest pain, light headedness Gastrointestinal: denies: nausea, vomiting Genitourinary: denies: dysuria, frequency, incontinence, hematuria, retention, other Musculoskeletal: denies: neck pain, shoulder pain, arm pain, back pain, hand pain, leg pain, foot pain, other Neurological: denies: weakness, numbness, incoordination, change in speech, confusion, seizures All other systems reviewed; all pertinent +/- noted in HPI/Subj - Medication Medications: Active Medications Generic Name Dose Route Start Last Admin Trade Name Freq PRN Reason Stop Dose Admin Sodium Chloride 1,000 mls @ 80 mls/hr 08/18/19 13:15 08/18/19 15:37 Normal Saline 0.9% IV 1,000 mls .[id number] JUDY Administration Ketorolac Tromethamine 15 mg 08/18/19 18:07 08/18/19 18:23 Toradol IVP 08/23/19 18:08 15 mg Q6H PRN Administration Pain Hospitalist History - Past Medical History Source: patient, old records (PAST MEDICAL HISTORY: She has a history of reported ischemic stroke from 2018 with some left-sided weakness, hyperlipidemia , hypertension, migraines, anxiety, arthritis, some bipolar disorder. PAST SURGICAL HISTORY: Surgery in both ankles. She had tubal ligation. FAMILY HISTORY : Mother had an MT. SOCIAL HISTORY: The patient is a nonsmoker, she quit last year. doesn't answer regarding alcohol and recreational drugs. She is not , but does have a boyfriend. She is full code. Her daughter, Eulalia, present to be her surrogate decision maker. ALLERGIES: NONE. CURRENT MEDICATIONS : 1. Lisinopril 40 mg daily. 2. Atorvastatin 40 mg daily. 3. Amlodipine 10 mg daily. 4. Metoprolol 50 mg daily.) - Exam General Appearance: NAD General - other findings: drowsy after receiving benadryl and reglan in ED Eye: PERRL, anicteric sclera ENT: normocephalic atraumatic, moist mucosa ENT - other findings: could not appreciate cervical, postauricular, or submandibular lymphadenopa Neck: supple, symmetric, no JVD, no thyromegaly, no lymphadenopathy Heart: RRR, no murmur, no gallops, no rubs, normal peripheral pulses Respiratory: CTAB, no wheezes, no rales, no ronchi, normal chest expansion, no tachypnea, normal percussion Gastrointestinal: soft, non-tender, non-distended, normal bowel sounds, no palpable masses, no hepatomegaly, no splenomegaly, no bruit Extremities: no cyanosis, no clubbing, no edema Neurological: cranial nerve grossly intact, normal sensation to touch, no weakness, no focal deficits, no new deficit. negative: facial droop, hemiplegia , speech deficit, vision deficit Musculoskeletal: normal tone, normal strength, no muscle wasting Psychiatric: flat affect, somnolent Psychiatric - other findings: oriented x 3 Hospitalist Results - Labs Result Diagrams: 08/18/19 05:19 08/18/19 05:19 Lab results: WBC 8.8 thou/uL (4.8-10.8) 08/18/19 05:19 Hgb 13.2 g/dL (12.0-16.0) 08/18/19 05:19 Hct 40.0 % (36.0-47.0) 08/18/19 05:19 MCV 85.5 fL (78.0-98.0) 08/18/19 05:19 Plt Count 278 thou/uL (130-400) 08/18/19 05:19 Neutrophils % 54.2 % (42.0-75.0) 08/18/19 05:19 Sodium 141 mmol/L (136-145) 08/18/19 05:19 Potassium 3.4 mmol/L (3.5-5.1) L 08/18/19 05:19 Chloride 107 mmol/L (98-107) 08/18/19 05:19 Carbon Dioxide 26 mmol/L (22-29) 08/18/19 05:19 BUN 11 mg/dL (7.0-18.7) 08/18/19 05:19 Creatinine 0.77 mg/dL (0.6-1.1) 08/18/19 05:19 Glucose 98 mg/dL (70-105) 08/18/19 05:19 Calcium 8.8 mg/dL (7.8-10.44) 08/18/19 05:19 Total Bilirubin 0.2 mg/dL (0.2-1.2) 08/18/19 05:19 AST 17 U/L (5-34) 08/18/19 05:19 ALT 24 U/L (8-55) 08/18/19 05:19 Alkaline Phosphatase 109 U/L (40-110) 08/18/19 05:19 Troponin I 0.018 ng/mL (< 0.028) 08/18/19 05:19 Serum Total Protein 6.4 g/dL (6.0-8.3) 08/18/19 05:19 Albumin 3.8 g/dL (3.5-5.0) 08/18/19 05:19 - Radiology Interpretation CT scan - head Status: report reviewed by tn Hospitalist H&P A/P - Problem (1) Tension headache Code(s): G44.209 - TENSION-TYPE HEADACHE, UNSPECIFIED, NOT INTRACTABLE Status : Acute (2) H/O: CVA (cerebrovascular accident) Code(s): Z86.73 - PRSNL HX OF TIA (TIA), AND CEREB INFRC W/O RESID DEFICITS Status: Chronic (3) HTN (hypertension) Code(s): I10 - ESSENTIAL (PRIMARY) HYPERTENSION Status: Chronic Qualifiers: (4) Noncompliance with medications Code(s): Z91.14 - PATIENT'S OTHER NONCOMPLIANCE WITH MEDICATION REGIMEN Status : Chronic - Plan Plan: * 1. * based on ICHD-3 criteria and several psychosocial factors * presented with slightly elevated blood pressure so unlikely related to antihtn medication nonadherence * requests benadryl and reglan IV specifically so may be some component of malingering * 2. * patient reports history of CVA however exam finding and previous imaging studies are unremarkable * 3. * restarted home antiHTN medications * 4. * significant history of nonadherence; also during previous tissue, CT w/ contrast showed some sinus soft tissue asymmetry and possible lymphadenopathy; patient was requested to follow up with ENT but never did * * plan: * patient continues to request benadryl and reglan, which may mask acute change in mental state; complains of no nausea, vomiting, or other indications for use of these meds * will start toradol as reportedly relieved pain in past presentations * restarted rest of home medicaiotns * * full code * GI PPX: not Ix * DVT PPx : enoxeparin
[2019-08-18] MEDS ORDERED: Atorvastatin Calcium 40 MG TAB PO SCH (21:00)
[2019-08-19] MEDS: Ketorolac Tromethamine 30 MG/ML VIAL IVP PRN ×2 (00:19→08:59)
[2019-08-19] MEDS: Sodium Chloride 0.9% 1,000 ML IV SCH (04:03)
[2019-08-19 05:25] LABS: #Basophils 0.1 thou/uL (0.0-0.2); #Eosinphils 0.4 thou/uL (0.0-0.7); #Lymphocytes 2.8 thou/uL (1.20-3.40); #Monocytes 0.7 thou/uL (0.11-0.59); #Neutrophils 3.6 thou/uL (1.40-6.50); %Basophils 1.1 % (0.0-1.0); %Eosinophils 5.1 % (0.0-10.0); %Lymphocytes 36.9 % (21.0-51.0); %Monocytes 8.6 % (0.0-10.0); %Neutrophils 48.3 % (42.0-75.0); Hemoglobin 13.5 g/dL (12.0-16.0); Mean Corpuscular HGB CONC 33.4 g/dL (32.0-36.0); Mean Corpuscular Hemoglobin 28.6 pg (27.0-31.0); Mean Corpuscular Volume 85.8 fL (78.0-98.0); Mean Platelet Volume 8.3 fL (7.4-10.4); Platelet Count 268 thou/uL (130-400); RBC Distribution Width 12.4 % (11.5-14.5); White Blood Cell (WBC) Count 7.5 thou/uL (4.8-10.8)
[2019-08-19 05:40] LABS: Anion Gap 12 mmol/L (10-20); BUN (Urea Nitrogen) 10 mg/dL (7.0-18.7); Calc. Creatinine Clearance 154 mL/min (70-130); Calcium 8.6 mg/dL (7.8-10.44); Carbon Dioxide 24 mmol/L (22-29); Chloride 107 mmol/L (98-107); Estimated GFR-MDRD 87; Glucose 96 mg/dL (70-105); Potassium 3.5 mmol/L (3.5-5.1); Sodium 139 mmol/L (136-145)
[2019-08-19 08:17] VITALS: TEMP 97.7
[2019-08-19] MEDS ORDERED: FLU VACC QS2019-20(6MOS UP)/PF 60 MCG/0.5 ML SYRINGE IM ONE (09:00)
[2019-08-19] MEDS ORDERED: Lisinopril 20 MG TAB PO SCH (09:00)
[2019-08-19] MEDS ORDERED: Amlodipine 10 MG TAB PO SCH (09:00)
[2019-08-19] MEDS ORDERED: Enoxaparin Sodium 30 MG/0.3 ML SYRINGE SC SCH (09:00)
[2019-08-19 12:37] VITALS: BP 138/91
--- NOTE | 2019-08-20 21:21 | DIS ---
DATE OF ADMISSION: 08/18/2019 DATE OF DISCHARGE: 08/19/2019 HISTORY OF PRESENT ILLNESS: Ms. Arreaga is a 49-year-old female with medical history of migraine headaches, reported ischemic stroke with left residual weakness in 2018, though extensive subsequent imaging for similar presentations were unremarkable, hypertension, anxiety, and bipolar disorder who presented with a headache similar to previous presentation. She reported that the headache started early in the morning, pressure-like, spreads from back to front, constant, 8/10 in intensity. She was diagnosed with a tension headache based on ICHD-3 criteria, and was started on ketorolac. Until the day following presentation her headache significantly improved. She was educated regarding the difference between tension headache and migraines as well as the different treatment possibilities and the triggers for tension headaches. She received written materials regarding lifestyle modifications, regarding tension headache and was discharged home, feeling well and hemodynamically stable. On exam, she was in no apparent distress. Alert and oriented x3. PHYSICAL EXAMINATION: EYES: PERRL, anicteric sclerae. ENT: Normocephalic, atraumatic. Moist mucosa. No cervical, postauricular or submandibular lymphadenopathy. NECK: Supple. Symmetric. No JVD. No thyromegaly. No lymphadenopathy. HEART: Regular rate and rhythm. No murmur. No gallops. No rubs. Normal peripheral pulses. RESPIRATORY: Clear to auscultation bilaterally. No wheezes, no rales. No rhonchi. Normal chest expansion. No tachypnea. Normal percussion. GI: Soft, nontender, nondistended. Normal bowel sounds. NEUROLOGIC: Cranial nerves grossly intact. Normal sensation to touch. No weakness. No focal deficits. No new deficits. No facial droop. No hemiplegia, speech deficit. No vision defect. PSYCHIATRIC: Flat affect. Alert and oriented x3. ASSESSMENT: Ms. Arreaga is a 49-year-old female with a medical history of migraine headaches, hypertension, reported cerebrovascular accident and nonadherence to medications, who presented with tension headache. She was treated with ketorolac and improved overnight. Prior to discharge, she was provided with extensive education in addition to prescription of both ibuprofen as well as omeprazole to prevent gastropathy. Job ID: [id number]
== END 2019-08-19 11:51 | disposition home or self-care (01) ==
LOC: ERS 04:12 → 2SW 06:45
PROVIDERS: ADMIT Internal Medicine; ATTEND Internal Medicine
DX: G44.209 Tension-type headache, unspecified, not intractable (principal); I69.354 Hemiplegia and hemiparesis following cerebral infarction affecting left non-dominant side; I10 Essential (primary) hypertension; F41.9 Anxiety disorder, unspecified; F31.9 Bipolar disorder, unspecified; E78.5 Hyperlipidemia, unspecified; M19.90 Unspecified osteoarthritis, unspecified site; G43.909 Migraine, unspecified, not intractable, without status migrainosus; Z87.891 Personal history of nicotine dependence; Z79.899 Other long term (current) drug therapy; Z91.14 Patient's other noncompliance with medication regimen
CPT/HCPCS: 36415; 70450; 80048; 80053; 84484; 85025; 90471; 90686; 93005; 96361; 96372; 96374; 96375; 96376; G0008; G0378; J1200; J1650; J1885; J2765

== ENCOUNTER 2020-09-05 07:31 | Observation (INO) | payer OTHER ==
[2020-09-05 09:09] LABS: #Basophils 0.1 thou/uL (0.0-0.2); #Eosinphils 0.5 thou/uL (0.0-0.7); #Lymphocytes 3.2 thou/uL (1.20-3.40); #Monocytes 0.9 thou/uL (0.11-0.59); #Neutrophils 5.2 thou/uL (1.40-6.50); %Basophils 1.2 % (0.0-1.0); %Eosinophils 4.7 % (0.0-10.0); %Lymphocytes 32.5 % (21.0-51.0); %Monocytes 8.9 % (0.0-10.0); %Neutrophils 52.7 % (42.0-75.0); Hemoglobin 14.4 g/dL (12.0-16.0); Mean Corpuscular HGB CONC 34.3 g/dL (32.0-36.0); Mean Corpuscular Hemoglobin 29.5 pg (27.0-31.0); Mean Corpuscular Volume 86.1 fL (78.0-98.0); Mean Platelet Volume 8.6 fL (7.4-10.4); Platelet Count 292 thou/uL (130-400); RBC Distribution Width 12.6 % (11.5-14.5); Red Blood Cell (RBC) Count 4.87 mill/uL (4.20-5.40); White Blood Cell (WBC) Count 9.9 thou/uL (4.8-10.8)
[2020-09-05] MEDS ORDERED: Ondansetron PF 4 MG/2 ML Vial IVP SCH (09:30)
[2020-09-05] MEDS ORDERED: Morphine 4 MG/ML VIAL SLOW IVP SCH (09:30)
[2020-09-05] MEDS ORDERED: Sodium Chloride 0.9% 1,000 ML IV SCH (09:38)
[2020-09-05 10:08] LABS: Bacteria/HPF None Seen HPF (None Seen); Bilirubin Negative (Negative); Blood, Urine Negative (Negative); Clarity Turbid (Clear); Glucose, Urine (Dipstick) Normal (Negative); Ketone, Urine Negative (Negative); Leukocyte 75 Leu/uL (Negative); Nitrite Negative (Negative); Protein, Urine (Dipstick) 10 mg/dL (Neg-Trace); RBC/HPF 0-3 HPF (0-3); Specific Gravity, Urine 1.027 (1.002-1.036); Urobilinogen Normal mg/dL (Less than 2); pH, Urine 5.5 (5.0-9.0)
[2020-09-05 10:10] LABS: Pregnancy Test - Urine (BHCG) Negative (Negative); Pregu Control Background? CLEAR/WHITE (CLR/WHITE); Pregu Control Bar Appear? YES (CONTROL BAR); Specific Gravity 1.027 (1.002-1.036)
[2020-09-05] MEDS ORDERED: Ondansetron PF 4 MG/2 ML Vial ONE ×2 (10:10→10:25)
[2020-09-05] MEDS ORDERED: Morphine 4 MG/ML VIAL ONE (10:10)
[2020-09-05 10:19] LABS: ALT (SGPT) 23 U/L (8-55); AST (SGOT) 17 U/L (5-34); Albumin 3.9 g/dL (3.5-5.0); Alkaline Phosphatase 130 U/L (40-110); Anion Gap 14 mmol/L (10-20); BUN (Urea Nitrogen) 16 mg/dL (9.8-20.1); Bilirubin, Total 0.2 mg/dL (0.2-1.2); Calc. Creatinine Clearance 0 mL/min (70-130); Calcium 9.1 mg/dL (7.8-10.44); Carbon Dioxide 23 mmol/L (22-29); Chloride 106 mmol/L (98-107); Globulin 3.6 g/dL (2.4-3.5); Glucose 111 mg/dL (70-105); Lipase 37 U/L (8-78); Protein, Total 7.5 g/dL (6.0-8.3); Sodium 139 mmol/L (136-145)
[2020-09-05] MEDS ORDERED: Glycopyrrolate 0.2 MG/ML 5 ML SYRINGE ONE (10:25)
[2020-09-05] MEDS ORDERED: Rocuronium Bromide 10 MG/ML (10ML VIAL) ONE (10:25)
[2020-09-05] MEDS ORDERED: Ketorolac Tromethamine 30 MG/ML VIAL ONE (10:25)
[2020-09-05] MEDS ORDERED: Dexamethasone 20 MG/5 ML VIAL ONE (10:25)
[2020-09-05] MEDS ORDERED: Lidocaine 1% PF 5 ML VIAL ONE (10:25)
[2020-09-05] MEDS ORDERED: PROPOFOL 200 MG/20 ML VIAL ONE (10:25)
[2020-09-05] MEDS ORDERED: Piperacillin/Tazobactam 3.375 GM VIAL ONE (10:40)
[2020-09-05] MEDS ORDERED: Metoprolol Tartrate 50 MG TAB ONE (11:31)
[2020-09-05 12:14] LABS: SARS-CoV-2 NAA Rapid Test Not Detected (NotDetected)
[2020-09-05] MEDS ORDERED: Fentanyl 100 MCG/2 ML VIAL ONE ×3 (12:36→17:33)
[2020-09-05] MEDS ORDERED: Iothalamate Meglumine 60% 50 ML VIAL FS ONE (12:49)
[2020-09-05] MEDS ORDERED: Bupivacaine 0.25% HCL 30 ML VIAL ONE (12:49)
[2020-09-05] MEDS ORDERED: Lidocaine 1% w/Epinephrine 1:100K 20 ML VIAL ONE (12:49)
[2020-09-05] MEDS ORDERED: Calcium Carbonate 500 MG ChewTAB PO PRN (16:30)
[2020-09-05] MEDS ORDERED: hydrALAZINE 20 MG/ML VIAL SLOW IVP PRN (16:30)
[2020-09-05] MEDS ORDERED: Mag-Al 1200 mg/1200 mg/30 ML UDCUP PO PRN (16:30)
[2020-09-05] MEDS ORDERED: Dextrose 50% Abboject 50 ML SYRINGE SLOW IVP PRN (16:30)
[2020-09-05] MEDS ORDERED: Dextrose 5% in Water 1,000 ML IV PRN (16:30)
[2020-09-05] MEDS ORDERED: Promethazine HCl 25 MG/ML VIAL IM PRN ×2 (16:30→16:33)
[2020-09-05] MEDS ORDERED: Ondansetron PF 4 MG/2 ML Vial IVP PRN (16:30)
[2020-09-05] MEDS ORDERED: Promethazine HCl 25 MG/ML VIAL SLOW IVP PRN (16:33)
[2020-09-05] MEDS ORDERED: Ondansetron HCl/PF 4 MG/2 ML Vial IVP PRN (16:33)
[2020-09-05] MEDS ORDERED: traMADol HCl 50 MG TAB PO PRN (16:35)
[2020-09-05] MEDS ORDERED: hydrALAZINE 20 MG/ML VIAL ONE (17:17)
[2020-09-05] MEDS ORDERED: Ketorolac Tromethamine 30 MG/ML VIAL IVP SCH (18:00)
[2020-09-05] MEDS: Acetaminophen 500 MG TAB PO SCH ×2 (18:50→23:30)
[2020-09-05] MEDS: Piperacillin/Tazobactam 3.375 GM in Sodium Chloride 0.9% 100 ML IVPB SCH ×2 (18:58→23:31)
[2020-09-05] MEDS: traMADol HCl 50 MG TAB PO PRN (19:59)
[2020-09-05] MEDS ORDERED: Enoxaparin Sodium 40 MG/0.4 ML SYRINGE SC SCH (21:00)
[2020-09-05] MEDS: Famotidine/PF 20 mg/2ml Vial SLOW IVP SCH (21:44)
[2020-09-05] MEDS: Ketorolac Tromethamine 30 MG/ML VIAL IVP SCH (21:44)
[2020-09-05] MEDS: Lisinopril 20 MG TAB PO SCH (21:44)
[2020-09-05] MEDS: Lactated Ringer's 1,000 ML IV SCH (21:45)
[2020-09-05] MEDS: Famotidine 20 MG TAB PO SCH (22:26)
[2020-09-05 22:35] VITALS: BMI 30.7
[2020-09-06] MEDS: Lactated Ringer's 1,000 ML IV SCH ×2 (00:14→05:27)
[2020-09-06] MEDS: Ketorolac Tromethamine 30 MG/ML VIAL IVP SCH ×3 (03:20→14:07)
[2020-09-06] MEDS: traMADol HCl 50 MG TAB PO PRN ×2 (05:25→11:25)
[2020-09-06] MEDS: Acetaminophen 500 MG TAB PO SCH ×2 (05:26→11:25)
[2020-09-06] MEDS: Piperacillin/Tazobactam 3.375 GM in Sodium Chloride 0.9% 100 ML IVPB SCH ×2 (05:27→11:26)
[2020-09-06 06:00] LABS: #Lymphocytes 1.8 thou/uL (1.20-3.40); #Neutrophils 10.5 thou/uL (1.40-6.50); %Basophils 0.2 % (0.0-1.0); %Eosinophils 0.1 % (0.0-10.0); %Lymphocytes 13.2 % (21.0-51.0); %Monocytes 7.6 % (0.0-10.0); %Neutrophils 78.9 % (42.0-75.0); Hemoglobin 13.7 g/dL (12.0-16.0); Mean Corpuscular HGB CONC 32.7 g/dL (32.0-36.0); Mean Corpuscular Hemoglobin 28.3 pg (27.0-31.0); Mean Corpuscular Volume 86.7 fL (78.0-98.0); Mean Platelet Volume 8.2 fL (7.4-10.4); Platelet Count 285 thou/uL (130-400); RBC Distribution Width 12.9 % (11.5-14.5); Red Blood Cell (RBC) Count 4.82 mill/uL (4.20-5.40); White Blood Cell (WBC) Count 13.3 thou/uL (4.8-10.8)
[2020-09-06 06:23] LABS: ALT (SGPT) 184 U/L (8-55); AST (SGOT) 135 U/L (5-34); Albumin 3.5 g/dL (3.5-5.0); Alkaline Phosphatase 114 U/L (40-110); Anion Gap 16 mmol/L (10-20); BUN (Urea Nitrogen) 12 mg/dL (9.8-20.1); Bilirubin, Total 0.4 mg/dL (0.2-1.2); Calc. Creatinine Clearance 140 mL/min (70-130); Calcium 8.7 mg/dL (7.8-10.44); Carbon Dioxide 21 mmol/L (22-29); Chloride 105 mmol/L (98-107); Globulin 3.1 g/dL (2.4-3.5); Glucose 102 mg/dL (70-105); Potassium 4.1 mmol/L (3.5-5.1); Protein, Total 6.6 g/dL (6.0-8.3); Sodium 138 mmol/L (136-145)
[2020-09-06] MEDS: Famotidine 20 MG TAB PO SCH (08:23)
[2020-09-06] MEDS: Famotidine/PF 20 mg/2ml Vial SLOW IVP SCH (08:24)
[2020-09-06] MEDS: Lisinopril 20 MG TAB PO SCH (08:24)
[2020-09-06] MEDS ORDERED: FLU VACC QS2020-21(6MOS UP)/PF 60 MCG/0.5 ML SYRINGE IM ONE (09:00)
[2020-09-06] MEDS ORDERED: Amlodipine 10 MG TAB PO SCH (09:00)
[2020-09-06] MEDS ORDERED: PARoxetine 20 MG TAB PO SCH (09:00)
[2020-09-06] MEDS ORDERED: Piperacillin/Tazobactam 3.375 GM in Sodium Chloride 0.9% 100 ML IVPB SCH (10:38)
[2020-09-06 11:33] VITALS: BP 131/75; TEMP 97.9
== END 2020-09-06 15:00 | disposition home or self-care (01) ==
LOC: ERS 07:31 → SDC 12:43 → SURG A 16:30
PROVIDERS: ADMIT Surgery; ATTEND Surgery
PROC: 0FT44ZZ Resection of Gallbladder, Percutaneous Endoscopic Approach (ICD-10-PCS; principal; 2020-09-05)
DX: K80.12 Calculus of gallbladder with acute and chronic cholecystitis without obstruction (principal); K66.0 Peritoneal adhesions (postprocedural) (postinfection); F31.9 Bipolar disorder, unspecified; I10 Essential (primary) hypertension; E78.5 Hyperlipidemia, unspecified; K76.0 Fatty (change of) liver, not elsewhere classified; F41.9 Anxiety disorder, unspecified; G43.909 Migraine, unspecified, not intractable, without status migrainosus; I69.354 Hemiplegia and hemiparesis following cerebral infarction affecting left non-dominant side; E66.01 Morbid (severe) obesity due to excess calories; Z68.30 Body mass index [BMI] 30.0-30.9, adult; Z87.891 Personal history of nicotine dependence; Z79.899 Other long term (current) drug therapy; Z20.822 Contact with and (suspected) exposure to COVID-19
CPT/HCPCS: 0240U; 36415; 71046; 76705; 80053; 81003; 81015; 81025; 83690; 85025; 88304; 90471; 90662; 93005; 96365; 96366; 96374; 96375; 96376; G0008; G0378; J0360; J0690; J1100; J1610; J1650; J1885; J2270; J2405; J2543; J2704; J3010; J3490; S0020; S0028

== ENCOUNTER 2020-09-07 01:50 | Emergency (ER) | payer OTHER ==
[2020-09-07] MEDS ORDERED: Morphine 4 MG/ML VIAL ONE ×2 (02:05)
[2020-09-07] MEDS ORDERED: Ondansetron PF 4 MG/2 ML Vial ONE (02:05)
[2020-09-07 02:35] LABS: #Basophils 0.1 thou/uL (0.0-0.2); #Eosinphils 0.2 thou/uL (0.0-0.7); #Lymphocytes 2.8 thou/uL (1.20-3.40); #Monocytes 0.9 thou/uL (0.11-0.59); #Neutrophils 5.1 thou/uL (1.40-6.50); %Eosinophils 2.5 % (0.0-10.0); %Lymphocytes 30.9 % (21.0-51.0); %Monocytes 10.1 % (0.0-10.0); %Neutrophils 55.5 % (42.0-75.0); Hemoglobin 12.7 g/dL (12.0-16.0); Mean Corpuscular HGB CONC 34.6 g/dL (32.0-36.0); Mean Corpuscular Hemoglobin 29.6 pg (27.0-31.0); Mean Corpuscular Volume 85.7 fL (78.0-98.0); Mean Platelet Volume 8.3 fL (7.4-10.4); Platelet Count 246 thou/uL (130-400); RBC Distribution Width 12.7 % (11.5-14.5); Red Blood Cell (RBC) Count 4.31 mill/uL (4.20-5.40); White Blood Cell (WBC) Count 9.2 thou/uL (4.8-10.8)
[2020-09-07 02:48] LABS: ALT (SGPT) 107 U/L (8-55); AST (SGOT) 45 U/L (5-34); Albumin 3.3 g/dL (3.5-5.0); Alkaline Phosphatase 108 U/L (40-110); Anion Gap 14 mmol/L (10-20); BUN (Urea Nitrogen) 13 mg/dL (9.8-20.1); Bilirubin, Total Less than 0.2 mg/dL (0.2-1.2); Calc. Creatinine Clearance 0 mL/min (70-130); Calcium 8.2 mg/dL (7.8-10.44); Carbon Dioxide 22 mmol/L (22-29); Chloride 108 mmol/L (98-107); Glucose 110 mg/dL (70-105); Lipase 47 U/L (8-78); Potassium 3.4 mmol/L (3.5-5.1); Protein, Total 6.3 g/dL (6.0-8.3); Sodium 141 mmol/L (136-145)
[2020-09-07 03:54] LABS: Bilirubin Negative (Negative); Blood, Urine Negative (Negative); Clarity Clear (Clear); Glucose, Urine (Dipstick) Normal (Negative); Ketone, Urine Negative (Negative); Leukocyte Negative Leu/uL (Negative); Nitrite Negative (Negative); Protein, Urine (Dipstick) Negative (Neg-Trace); Specific Gravity, Urine 1.028 (1.002-1.036); Urobilinogen Normal mg/dL (Less than 2); pH, Urine 7.5 (5.0-9.0)
[2020-09-07] MEDS ORDERED: Iopamidol-370 76% 500 ML 1 ML ONE (12:00)
== END 2020-09-07 06:28 | disposition home or self-care (01) ==
LOC: ERS 01:50
DX: G89.18 Other acute postprocedural pain (principal); R10.11 Right upper quadrant pain; E78.5 Hyperlipidemia, unspecified; I10 Essential (primary) hypertension; G43.909 Migraine, unspecified, not intractable, without status migrainosus; Z87.891 Personal history of nicotine dependence; Z79.899 Other long term (current) drug therapy
CPT/HCPCS: 71045; 74177; 80053; 81003; 83690; 85025; 96374; 96375; J2270; J2405; Q9967

== ENCOUNTER 2020-12-24 23:05 | Emergency (ER) | payer OTHER ==
[2020-12-24 23:45] LABS: #Basophils 0.1 thou/uL (0.0-0.2); #Eosinphils 0.3 thou/uL (0.0-0.7); #Monocytes 0.7 thou/uL (0.11-0.59); #Neutrophils 6.4 thou/uL (1.40-6.50); %Basophils 0.7 % (0.0-1.0); %Eosinophils 2.7 % (0.0-10.0); %Lymphocytes 21.4 % (21.0-51.0); %Neutrophils 68.2 % (42.0-75.0); Hemoglobin 14.5 g/dL (12.0-16.0); Mean Corpuscular HGB CONC 33.6 g/dL (32.0-36.0); Mean Corpuscular Hemoglobin 28.4 pg (27.0-31.0); Mean Corpuscular Volume 84.5 fL (78.0-98.0); Mean Platelet Volume 8.1 fL (7.4-10.4); Platelet Count 289 thou/uL (130-400); RBC Distribution Width 12.8 % (11.5-14.5); Red Blood Cell (RBC) Count 5.12 mill/uL (4.20-5.40); White Blood Cell (WBC) Count 9.4 thou/uL (4.8-10.8)
[2020-12-24 23:53] LABS: BHCG - Serum Negative (NEGATIVE); Pregs Control Background? CLEAR/WHITE (CLR/WHITE); Pregs Control Bar Appear? YES (CONTROL BAR)
[2020-12-25 00:06] LABS: ALT (SGPT) 40 U/L (8-55); AST (SGOT) 29 U/L (5-34); Albumin 4.1 g/dL (3.5-5.0); Alkaline Phosphatase 142 U/L (40-110); Anion Gap 23 mmol/L (10-20); BUN (Urea Nitrogen) 17 mg/dL (9.8-20.1); Bilirubin, Total 0.2 mg/dL (0.2-1.2); Calc. Creatinine Clearance 0 mL/min (70-130); Carbon Dioxide 19 mmol/L (22-29); Chloride 103 mmol/L (98-107); Globulin 3.8 g/dL (2.4-3.5); Glucose 108 mg/dL (70-105); Potassium 3.8 mmol/L (3.5-5.1); Protein, Total 7.9 g/dL (6.0-8.3); Sodium 141 mmol/L (136-145)
== END 2020-12-25 02:22 ==
LOC: ERS 23:05
DX: R53.1 Weakness (principal); R53.83 Other fatigue; E78.5 Hyperlipidemia, unspecified; I10 Essential (primary) hypertension; Z86.73 Personal history of transient ischemic attack (TIA), and cerebral infarction without residual deficits; Z87.891 Personal history of nicotine dependence; Z79.82 Long term (current) use of aspirin; Z79.899 Other long term (current) drug therapy
CPT/HCPCS: 71045; 80053; 84484; 84703; 85025; 93005

== ENCOUNTER 2020-12-28 18:40 | Observation (INO) | payer OTHER ==
[2020-12-28 19:07] LABS: #Basophils 0.1 thou/uL (0.0-0.2); #Eosinphils 0.1 thou/uL (0.0-0.7); #Lymphocytes 2.3 thou/uL (1.20-3.40); #Monocytes 0.9 thou/uL (0.11-0.59); #Neutrophils 6.6 thou/uL (1.40-6.50); %Basophils 0.5 % (0.0-1.0); %Eosinophils 0.8 % (0.0-10.0); %Lymphocytes 23.5 % (21.0-51.0); %Monocytes 8.8 % (0.0-10.0); %Neutrophils 66.4 % (42.0-75.0); Hemoglobin 13.8 g/dL (12.0-16.0); Mean Corpuscular HGB CONC 34.2 g/dL (32.0-36.0); Mean Corpuscular Hemoglobin 28.9 pg (27.0-31.0); Mean Corpuscular Volume 84.5 fL (78.0-98.0); Platelet Count 290 thou/uL (130-400); RBC Distribution Width 12.8 % (11.5-14.5); Red Blood Cell (RBC) Count 4.78 mill/uL (4.20-5.40); White Blood Cell (WBC) Count 9.9 thou/uL (4.8-10.8)
[2020-12-28 19:28] LABS: ALT (SGPT) 67 U/L (8-55); AST (SGOT) 36 U/L (5-34); Albumin 4.1 g/dL (3.5-5.0); Alkaline Phosphatase 137 U/L (40-110); Anion Gap 19 mmol/L (10-20); BUN (Urea Nitrogen) 13 mg/dL (9.8-20.1); Bilirubin, Total 0.2 mg/dL (0.2-1.2); Calc. Creatinine Clearance 0 mL/min (70-130); Calcium 9.2 mg/dL (7.8-10.44); Carbon Dioxide 17 mmol/L (22-29); Chloride 109 mmol/L (98-107); Glucose 114 mg/dL (70-105); Potassium 3.8 mmol/L (3.5-5.1); Protein, Total 7.1 g/dL (6.0-8.3); Sodium 141 mmol/L (136-145)
[2020-12-28] MEDS ORDERED: Nitroglycerin 2% Ointment 1 INCH/1 GM Packet ONE (19:56)
[2020-12-28] MEDS ORDERED: Acetaminophen 325 MG TAB PO PRN (23:45)
[2020-12-29 01:30] LABS: SARS-CoV-2 NAA Rapid Test Not Detected (NotDetected)
[2020-12-29 02:20] VITALS: BMI 31.3
[2020-12-29] MEDS ORDERED: Ondansetron PF 4 MG/2 ML Vial IVP PRN (03:48)
[2020-12-29] MEDS ORDERED: Acetaminophen 325 MG TAB PO PRN (03:48)
[2020-12-29] MEDS ORDERED: Nitroglycerin 0.4 MG TAB (25 Tab Bottle) SL PRN (03:48)
[2020-12-29 04:43] LABS: #Basophils 0.1 thou/uL (0.0-0.2); #Eosinphils 0.2 thou/uL (0.0-0.7); #Lymphocytes 3.1 thou/uL (1.20-3.40); #Monocytes 0.8 thou/uL (0.11-0.59); #Neutrophils 4.7 thou/uL (1.40-6.50); %Basophils 0.9 % (0.0-1.0); %Eosinophils 2.6 % (0.0-10.0); %Lymphocytes 34.8 % (21.0-51.0); %Neutrophils 52.7 % (42.0-75.0); Hemoglobin 13.9 g/dL (12.0-16.0); Mean Corpuscular HGB CONC 34.5 g/dL (32.0-36.0); Mean Corpuscular Hemoglobin 29.2 pg (27.0-31.0); Mean Corpuscular Volume 84.6 fL (78.0-98.0); Mean Platelet Volume 7.8 fL (7.4-10.4); Platelet Count 275 thou/uL (130-400); RBC Distribution Width 12.8 % (11.5-14.5); Red Blood Cell (RBC) Count 4.77 mill/uL (4.20-5.40); White Blood Cell (WBC) Count 8.9 thou/uL (4.8-10.8)
[2020-12-29 04:50] LABS: Hemoglobin A1c 5.5 % (4.0-6.0)
[2020-12-29 05:03] LABS: Anion Gap 14 mmol/L (10-20); BUN (Urea Nitrogen) 12 mg/dL (9.8-20.1); Calc. Creatinine Clearance 139 mL/min (70-130); Calcium 9.1 mg/dL (7.8-10.44); Carbon Dioxide 19 mmol/L (22-29); Chloride 108 mmol/L (98-107); Glucose 97 mg/dL (70-105); Potassium 3.3 mmol/L (3.5-5.1); Sodium 138 mmol/L (136-145)
[2020-12-29 05:07] LABS: ALT (SGPT) 61 U/L (8-55); AST (SGOT) 32 U/L (5-34); Albumin 3.8 g/dL (3.5-5.0); Alkaline Phosphatase 125 U/L (40-110); Bilirubin, Direct 0.2 mg/dL (0.1-0.3); Bilirubin, Total 0.4 mg/dL (0.2-1.2); Cardiac Risk 5.4 (Less than 4.5); Cholesterol 225 mg/dl (< 200 Desired); HDL Cholesterol 42 mg/dL (>60 Neg Risk); LDL Cholesterol, Calculated 143 mg/dL; Protein, Total 6.8 g/dL (6.0-8.3); Triglycerides 198 mg/dL (Less than 150)
[2020-12-29 05:52] VITALS: TEMP 97.9
[2020-12-29] MEDS ORDERED: ADENOSINE 60 MG/20 ML VIAL ONE (08:44)
[2020-12-29] MEDS ORDERED: Aspirin 81 mg Enteric Coated Tablet PO SCH (09:00)
[2020-12-29] MEDS ORDERED: Amlodipine 10 MG TAB PO SCH (09:00)
[2020-12-29] MEDS ORDERED: Lisinopril 10 MG TAB PO SCH (09:00)
[2020-12-29] MEDS ORDERED: PARoxetine 20 MG TAB PO SCH (09:00)
[2020-12-29] MEDS ORDERED: Potassium Chloride 20 MEQ TAB PO SCH (09:15)
[2020-12-29] MEDS ORDERED: Potassium Chloride 20 MEQ TAB ONE (10:01)
[2020-12-29] MEDS ORDERED: Aspirin Chewable 81 MG TAB ONE (10:01)
[2020-12-29] MEDS ORDERED: Lisinopril 10 MG TAB ONE (10:02)
[2020-12-29 10:41] VITALS: BP 137/106
[2020-12-29] MEDS ORDERED: Atorvastatin Calcium 40 MG TAB PO SCH (21:00)
== END 2020-12-29 14:25 ==
LOC: ERS 18:40 → ERHOLD 22:26
PROVIDERS: ADMIT Internal Medicine; ATTEND Physician Assistant
DX: R07.89 Other chest pain (principal); I11.0 Hypertensive heart disease with heart failure; I50.32 Chronic diastolic (congestive) heart failure; E78.5 Hyperlipidemia, unspecified; R74.01 Elevation of levels of liver transaminase levels; G43.909 Migraine, unspecified, not intractable, without status migrainosus; I69.354 Hemiplegia and hemiparesis following cerebral infarction affecting left non-dominant side; Z87.891 Personal history of nicotine dependence; Z79.82 Long term (current) use of aspirin; Z79.899 Other long term (current) drug therapy; Z20.822 Contact with and (suspected) exposure to COVID-19
CPT/HCPCS: 0240U; 36415; 71045; 78452; 80048; 80053; 80061; 80076; 83036; 84484; 85025; 85379; 93005; 93017; A9500; G0378; J0153

== ENCOUNTER 2021-02-01 17:30 | Observation (INO) | payer OTHER ==
[2021-02-01 17:56] LABS: #Basophils 0.1 thou/uL (0.0-0.2); #Eosinphils 0.4 thou/uL (0.0-0.7); #Lymphocytes 2.8 thou/uL (1.20-3.40); #Monocytes 0.9 thou/uL (0.11-0.59); #Neutrophils 4.7 thou/uL (1.40-6.50); %Eosinophils 4.6 % (0.0-10.0); %Lymphocytes 31.5 % (21.0-51.0); %Monocytes 9.5 % (0.0-10.0); %Neutrophils 53.4 % (42.0-75.0); Hemoglobin 14.4 g/dL (12.0-16.0); Mean Corpuscular HGB CONC 33.8 g/dL (32.0-36.0); Mean Corpuscular Hemoglobin 28.6 pg (27.0-31.0); Mean Corpuscular Volume 84.8 fL (78.0-98.0); Mean Platelet Volume 8.6 fL (7.4-10.4); Platelet Count 274 thou/uL (130-400); RBC Distribution Width 13.3 % (11.5-14.5); Red Blood Cell (RBC) Count 5.02 mill/uL (4.20-5.40); White Blood Cell (WBC) Count 8.9 thou/uL (4.8-10.8)
[2021-02-01 18:19] LABS: ALT (SGPT) 26 U/L (8-55); AST (SGOT) 20 U/L (5-34); Albumin 4.1 g/dL (3.5-5.0); Alkaline Phosphatase 148 U/L (40-110); Anion Gap 15 mmol/L (10-20); BUN (Urea Nitrogen) 18 mg/dL (9.8-20.1); Bilirubin, Total 0.6 mg/dL (0.2-1.2); Calc. Creatinine Clearance 0 mL/min (70-130); Calcium 9.2 mg/dL (7.8-10.44); Carbon Dioxide 22 mmol/L (22-29); Chloride 109 mmol/L (98-107); Globulin 3.1 g/dL (2.4-3.5); Glucose 103 mg/dL (70-105); Potassium 3.8 mmol/L (3.5-5.1); Protein, Total 7.2 g/dL (6.0-8.3); Sodium 142 mmol/L (136-145)
[2021-02-01] MEDS ORDERED: Aspirin 325 MG TAB ONE (19:22)
[2021-02-01] MEDS ORDERED: hydrALAZINE 20 MG/ML VIAL SLOW IVP PRN (23:26)
[2021-02-01] MEDS ORDERED: Ondansetron PF 4 MG/2 ML Vial IVP PRN (23:26)
[2021-02-01] MEDS ORDERED: Acetaminophen 325 MG TAB PO PRN (23:26)
[2021-02-01] MEDS ORDERED: Acetaminophen 650 MG Suppository PR PRN (23:26)
[2021-02-01] MEDS ORDERED: Ondansetron ODT 4 MG TAB PO PRN (23:26)
[2021-02-02 01:39] LABS: SARS-CoV-2 NAA Rapid Test Not Detected (NotDetected)
[2021-02-02 04:48] LABS: #Basophils 0.1 thou/uL (0.0-0.2); #Eosinphils 0.5 thou/uL (0.0-0.7); #Lymphocytes 2.7 thou/uL (1.20-3.40); #Monocytes 0.9 thou/uL (0.11-0.59); #Neutrophils 3.1 thou/uL (1.40-6.50); %Basophils 1.3 % (0.0-1.0); %Eosinophils 6.5 % (0.0-10.0); %Lymphocytes 37.2 % (21.0-51.0); Hemoglobin 13.8 g/dL (12.0-16.0); Mean Corpuscular HGB CONC 33.1 g/dL (32.0-36.0); Mean Corpuscular Hemoglobin 28.7 pg (27.0-31.0); Mean Corpuscular Volume 86.5 fL (78.0-98.0); Mean Platelet Volume 8.5 fL (7.4-10.4); Platelet Count 256 thou/uL (130-400); White Blood Cell (WBC) Count 7.2 thou/uL (4.8-10.8)
[2021-02-02 05:10] LABS: Anion Gap 12 mmol/L (10-20); BUN (Urea Nitrogen) 17 mg/dL (9.8-20.1); Calc. Creatinine Clearance 0 mL/min (70-130); Calcium 8.7 mg/dL (7.8-10.44); Carbon Dioxide 25 mmol/L (22-29); Cardiac Risk 4.9 (Less than 4.5); Chloride 108 mmol/L (98-107); Cholesterol 167 mg/dl (< 200 Desired); Glucose 107 mg/dL (70-105); HDL Cholesterol 34 mg/dL (>60 Neg Risk); LDL Cholesterol, Calculated 81 mg/dL; Potassium 3.6 mmol/L (3.5-5.1); Sodium 141 mmol/L (136-145); Triglycerides 261 mg/dL (Less than 150)
[2021-02-02] MEDS: Enoxaparin Sodium 40 MG/0.4 ML SYRINGE SC SCH (07:52)
[2021-02-02] MEDS: Aspirin 81 mg Enteric Coated Tablet PO SCH (07:52)
[2021-02-02] MEDS ORDERED: Enoxaparin Sodium 40 MG/0.4 ML SYRINGE ONE (07:53)
[2021-02-02] MEDS ORDERED: Aspirin Chewable 81 MG TAB ONE (07:53)
[2021-02-02] MEDS ORDERED: Ondansetron PF 4 MG/2 ML Vial ONE (13:34)
[2021-02-02 15:09] VITALS: BMI 35.3
[2021-02-02] MEDS ORDERED: Atorvastatin Calcium 40 MG TAB PO SCH (21:00)
[2021-02-02] MEDS: HYDROcodone/Acetaminophen 5/325 mg Tablet PO PRN (22:35)
[2021-02-03 05:34] LABS: #Basophils 0.1 thou/uL (0.0-0.2); #Eosinphils 0.5 thou/uL (0.0-0.7); #Lymphocytes 2.9 thou/uL (1.20-3.40); #Monocytes 0.9 thou/uL (0.11-0.59); %Basophils 1.1 % (0.0-1.0); %Eosinophils 5.5 % (0.0-10.0); %Lymphocytes 34.9 % (21.0-51.0); %Monocytes 11.2 % (0.0-10.0); %Neutrophils 47.3 % (42.0-75.0); Hemoglobin 13.7 g/dL (12.0-16.0); Mean Corpuscular HGB CONC 33.3 g/dL (32.0-36.0); Mean Corpuscular Hemoglobin 28.5 pg (27.0-31.0); Mean Corpuscular Volume 85.6 fL (78.0-98.0); Mean Platelet Volume 8.9 fL (7.4-10.4); Platelet Count 239 thou/uL (130-400); Red Blood Cell (RBC) Count 4.82 mill/uL (4.20-5.40); White Blood Cell (WBC) Count 8.4 thou/uL (4.8-10.8)
[2021-02-03 05:56] LABS: Anion Gap 11 mmol/L (10-20); BUN (Urea Nitrogen) 13 mg/dL (9.8-20.1); Calc. Creatinine Clearance 142 mL/min (70-130); Carbon Dioxide 26 mmol/L (22-29); Chloride 106 mmol/L (98-107); Glucose 105 mg/dL (70-105); Potassium 3.3 mmol/L (3.5-5.1); Sodium 140 mmol/L (136-145)
[2021-02-03] MEDS: Enoxaparin Sodium 40 MG/0.4 ML SYRINGE SC SCH (08:42)
[2021-02-03] MEDS: Aspirin 81 mg Enteric Coated Tablet PO SCH (08:42)
[2021-02-03] MEDS: HYDROcodone/Acetaminophen 5/325 mg Tablet PO PRN (08:44)
[2021-02-03] MEDS ORDERED: Aspirin/APAP/Caffeine Tab (Excedrin Migraine) PO PRN (08:46)
[2021-02-03] MEDS ORDERED: Lisinopril 20 MG TAB PO SCH (09:00)
[2021-02-03] MEDS ORDERED: PARoxetine 20 MG TAB PO SCH (09:00)
[2021-02-03] MEDS ORDERED: Amlodipine 10 MG TAB PO SCH (09:00)
[2021-02-03] MEDS ORDERED: Clopidogrel Bisulfate 75 MG TAB PO SCH (09:00)
[2021-02-03] MEDS ORDERED: Aspirin 81 mg Enteric Coated Tablet PO SCH (09:00)
[2021-02-03 11:43] VITALS: BP 142/86; TEMP 98.1
== END 2021-02-03 13:50 | disposition home or self-care (01) ==
LOC: ERS 17:30 → ERHOLD 20:21 → 2SE 02-02 15:05
PROVIDERS: ADMIT Student in an Organized Health Care Education/Training Program; ATTEND Hospitalist
DX: I69.354 Hemiplegia and hemiparesis following cerebral infarction affecting left non-dominant side (principal); R29.810 Facial weakness; I11.0 Hypertensive heart disease with heart failure; I50.9 Heart failure, unspecified; G43.909 Migraine, unspecified, not intractable, without status migrainosus; E78.5 Hyperlipidemia, unspecified; Z87.891 Personal history of nicotine dependence; Z91.14 Patient's other noncompliance with medication regimen; Z79.82 Long term (current) use of aspirin; Z79.899 Other long term (current) drug therapy; Z20.822 Contact with and (suspected) exposure to COVID-19
CPT/HCPCS: 0240U; 36415; 36416; 70450; 70551; 80048; 80053; 80061; 84443; 84484; 85025; 93005; 96372; 96374; G0378; J1650; J2405

== ENCOUNTER 2021-02-24 04:49 | Emergency (ER) | payer OTHER | END 2021-02-24 05:56 | disposition home or self-care (01) | LOC: ERS 04:49 | DX: R21 Rash and other nonspecific skin eruption (principal); I10 Essential (primary) hypertension; G43.909 Migraine, unspecified, not intractable, without status migrainosus; Z86.73 Personal history of transient ischemic attack (TIA), and cerebral infarction without residual deficits; Z87.891 Personal history of nicotine dependence | CPT/HCPCS: 99282 ==

== ENCOUNTER 2021-03-25 18:35 | Emergency (ER) | payer OTHER | END 2021-03-25 19:49 | disposition home or self-care (01) | LOC: ERS 18:35 | DX: R42 Dizziness and giddiness (principal); E78.5 Hyperlipidemia, unspecified; I10 Essential (primary) hypertension; Z87.891 Personal history of nicotine dependence; Z86.73 Personal history of transient ischemic attack (TIA), and cerebral infarction without residual deficits ==

== ENCOUNTER 2021-07-21 08:35 | Emergency (ER) | payer OTHER ==
[2021-07-21] MEDS ORDERED: diphenhydrAMINE 50 MG/ML VIAL ONE (09:22)
[2021-07-21] MEDS ORDERED: Ketorolac Tromethamine 30 MG/ML VIAL ONE (09:22)
[2021-07-21] MEDS ORDERED: Prochlorperazine 10 MG/2 ML VIAL ONE (09:22)
[2021-07-21] MEDS ORDERED: Acetaminophen 500 MG TAB ONE (09:22)
[2021-07-21 09:37] LABS: #Lymphocytes 1.6 thou/uL (1.20-3.40); #Monocytes 0.6 thou/uL (0.11-0.59); #Neutrophils 2.6 thou/uL (1.40-6.50); %Basophils 0.7 % (0.0-1.0); %Eosinophils 0.5 % (0.0-10.0); %Lymphocytes 33.3 % (21.0-51.0); %Monocytes 12.1 % (0.0-10.0); %Neutrophils 53.4 % (42.0-75.0); Hemoglobin 14.7 g/dL (12.0-16.0); Mean Corpuscular HGB CONC 33.2 g/dL (32.0-36.0); Mean Corpuscular Hemoglobin 29.3 pg (27.0-31.0); Mean Corpuscular Volume 88.2 fL (78.0-98.0); Mean Platelet Volume 8.2 fL (7.4-10.4); Platelet Count 186 thou/uL (130-400); RBC Distribution Width 12.6 % (11.5-14.5); White Blood Cell (WBC) Count 4.9 thou/uL (4.8-10.8)
[2021-07-21 10:01] LABS: ALT (SGPT) 35 U/L (8-55); AST (SGOT) 32 U/L (5-34); Alkaline Phosphatase 114 U/L (40-110); Anion Gap 17 mmol/L (10-20); BUN (Urea Nitrogen) 11 mg/dL (9.8-20.1); Bilirubin, Total 0.3 mg/dL (0.2-1.2); Calc. Creatinine Clearance 0 mL/min (70-130); Calcium 9.1 mg/dL (7.8-10.44); Carbon Dioxide 21 mmol/L (22-29); Chloride 104 mmol/L (98-107); Globulin 3.4 g/dL (2.4-3.5); Glucose 109 mg/dL (70-105); Potassium 3.3 mmol/L (3.5-5.1); Protein, Total 7.4 g/dL (6.0-8.3); Sodium 139 mmol/L (136-145)
[2021-07-21 11:36] LABS: Bilirubin Negative (Negative); Blood, Urine Small (Negative); Clarity Clear (Clear); Glucose, Urine (Dipstick) Negative (Negative); Ketone, Urine Negative (Negative); Leukocyte Negative (Negative); Nitrite Negative (Negative); Protein, Urine (Dipstick) Negative (Neg-Trace); Urobilinogen 0.2 mg/dL (Less than 2)
[2021-07-21 11:39] LABS: Bacteria/HPF None Seen HPF (None Seen); RBC/HPF 0-3 HPF (0-3); Squamous Epithelial 0-3 HPF (0-3); Transitional Epithelial 0-3 HPF (None Seen); WBC/HPF 0-3 HPF (0-3)
[2021-07-21 14:52] LABS: SARS-CoV-2 NAA Rapid Test DETECTED (NotDetected)
== END 2021-07-21 12:40 | disposition home or self-care (01) ==
LOC: ERS 08:35
DX: U07.1 COVID-19 (principal); W19.XXXA Unspecified fall, initial encounter; I10 Essential (primary) hypertension; E78.5 Hyperlipidemia, unspecified; Z86.73 Personal history of transient ischemic attack (TIA), and cerebral infarction without residual deficits; Z87.891 Personal history of nicotine dependence; Z79.899 Other long term (current) drug therapy
CPT/HCPCS: 36415; 51701; 70450; 71045; 80053; 81003; 81015; 83605; 84443; 84484; 85025; 93005; 96365; 96366; 96375; J0780; J1200; J1885; U0002

== ENCOUNTER 2021-07-28 17:10 | Emergency (ER) | payer OTHER ==
[2021-07-28] MEDS ORDERED: Lidocaine 2% Viscous Solution 10 ML, Aluminum & Magnesium Hydroxide 30 ML SSW SCH (18:00)
[2021-07-28] MEDS ORDERED: Ketorolac Tromethamine 30 MG/ML VIAL ONE (18:01)
[2021-07-28] MEDS ORDERED: Ondansetron ODT 8 MG TAB ONE (18:01)
== END 2021-07-28 18:51 | disposition home or self-care (01) ==
LOC: ERS 17:10
DX: K21.9 Gastro-esophageal reflux disease without esophagitis (principal); K43.9 Ventral hernia without obstruction or gangrene; F17.210 Nicotine dependence, cigarettes, uncomplicated; I10 Essential (primary) hypertension; E78.5 Hyperlipidemia, unspecified; J45.909 Unspecified asthma, uncomplicated; E66.9 Obesity, unspecified; Z68.45 Body mass index [BMI] 70 or greater, adult; Z86.73 Personal history of transient ischemic attack (TIA), and cerebral infarction without residual deficits; Z79.899 Other long term (current) drug therapy
CPT/HCPCS: 96372; 99283; J1885; Q0162

== ENCOUNTER 2021-08-01 11:44 | Inpatient (IN) | payer OTHER ==
[2021-08-01 12:49] LABS: #Eosinphils 0.1 thou/uL (0.0-0.7); #Lymphocytes 1.5 thou/uL (1.20-3.40); #Monocytes 0.7 thou/uL (0.11-0.59); #Neutrophils 4.6 thou/uL (1.40-6.50); %Basophils 0.6 % (0.0-1.0); %Eosinophils 1.2 % (0.0-10.0); %Lymphocytes 21.6 % (21.0-51.0); %Monocytes 10.2 % (0.0-10.0); %Neutrophils 66.4 % (42.0-75.0); Hemoglobin 14.1 g/dL (12.0-16.0); Mean Corpuscular HGB CONC 32.4 g/dL (32.0-36.0); Mean Corpuscular Volume 86.3 fL (78.0-98.0); Mean Platelet Volume 7.9 fL (7.4-10.4); Platelet Count 261 thou/uL (130-400); RBC Distribution Width 12.1 % (11.5-14.5); Red Blood Cell (RBC) Count 5.05 mill/uL (4.20-5.40); White Blood Cell (WBC) Count 6.9 thou/uL (4.8-10.8)
[2021-08-01 13:05] LABS: PTT 27.6 sec (22.9-36.1)
[2021-08-01 13:07] LABS: D-Dimer Test 0.34 *mcg/mL (0.27-0.43)
[2021-08-01 13:12] LABS: Acetaminophen Less than 6.0 mcg/mL (10.0-30.0); Alcohol Less than 10 mg/dL (Less than 10); CK (CPK) 23 U/L (29-168); Salicylate Less than 8.0 mg/dL (15.0-30.0)
[2021-08-01 13:16] LABS: ALT (SGPT) 322 U/L (8-55); AST (SGOT) 543 U/L (5-34); Albumin 3.9 g/dL (3.5-5.0); Alkaline Phosphatase 227 U/L (40-110); Anion Gap 13 mmol/L (10-20); BUN (Urea Nitrogen) 14 mg/dL (9.8-20.1); Bilirubin, Total 1.3 mg/dL (0.2-1.2); Calc. Creatinine Clearance 0 mL/min (70-130); Calcium 9.3 mg/dL (7.8-10.44); Carbon Dioxide 28 mmol/L (22-29); Chloride 103 mmol/L (98-107); Glucose 104 mg/dL (70-105); Potassium 3.9 mmol/L (3.5-5.1); Protein, Total 6.9 g/dL (6.0-8.3); Sodium 140 mmol/L (136-145)
[2021-08-01 13:25] LABS: INR-International Normal Ratio 0.9; Prothrombin Time 12.6 sec (12.0-14.7)
[2021-08-01 13:29] LABS: Bacteria/HPF None Seen HPF (None Seen); Bilirubin 1+ (Negative); Blood, Urine Negative (Negative); Clarity Clear (Clear); Glucose, Urine (Dipstick) Normal (Negative); Ketone, Urine Negative (Negative); Leukocyte Negative Leu/uL (Negative); Nitrite Negative (Negative); Protein, Urine (Dipstick) 50 mg/dL (Neg-Trace); RBC/HPF 0-3 HPF (0-3); Specific Gravity, Urine 1.034 (1.002-1.036); Squamous Epithelial 0-3 HPF (0-3)
[2021-08-01 13:35] LABS: Amphetamine Detected (NotDetected); Barbiturates Screen Not Detected (NotDetected); Benzodiazepine Screen Not Detected (NotDetected); Cocaine Metabolite Screen Not Detected (NotDetected); Methadone Not Detected (NotDetected); Methamphetamine Detected (NotDetected); Opiate Screen Not Detected (NotDetected); Oxycodone Screen Not Detected (NotDetected); Phencyclidine (PCP) Not Detected (NotDetected); THC/Cannabinoid Screen Not Detected (NotDetected); Tricyclic Screen Not Detected (NotDetected)
[2021-08-01 15:03] LABS: SARS-CoV-2 NAA Rapid Test DETECTED (NotDetected)
[2021-08-01] MEDS ORDERED: hydrALAZINE 20 MG/ML VIAL SLOW IVP PRN (15:57)
[2021-08-01] MEDS ORDERED: Enoxaparin Sodium 40 MG/0.4 ML SYRINGE SC SCH (16:00)
[2021-08-01] MEDS ORDERED: Lactated Ringer's 1,000 ML IV SCH (16:45)
[2021-08-01] MEDS ORDERED: Enoxaparin Sodium 40 MG/0.4 ML SYRINGE ONE (17:42)
[2021-08-01] MEDS ORDERED: hydrALAZINE 20 MG/ML VIAL ONE (17:45)
[2021-08-01] MEDS ORDERED: Lorazepam 2 MG/ML VIAL ONE (18:51)
[2021-08-01 20:14] VITALS: BMI 32.4
[2021-08-01] MEDS ORDERED: Atorvastatin Calcium 40 MG TAB PO SCH (21:00)
[2021-08-01] MEDS: Cholecalciferol 1,000 UNITS (25 MCG) TAB PO SCH (21:31)
[2021-08-02] MEDS: Aspirin/APAP/Caffeine Tab (Excedrin Migraine) PO PRN ×2 (01:24→20:16)
[2021-08-02] MEDS: Melatonin 3 MG TAB PO SCH ×2 (03:27→03:31)
[2021-08-02] MEDS ORDERED: Calcium Carbonate 500 MG ChewTAB PO SCH (04:45)
[2021-08-02 05:13] LABS: #Basophils 0.1 thou/uL (0.0-0.2); #Eosinphils 0.2 thou/uL (0.0-0.7); #Lymphocytes 2.3 thou/uL (1.20-3.40); #Monocytes 0.7 thou/uL (0.11-0.59); #Neutrophils 3.9 thou/uL (1.40-6.50); %Basophils 1.1 % (0.0-1.0); %Eosinophils 3.3 % (0.0-10.0); %Lymphocytes 31.7 % (21.0-51.0); %Monocytes 9.4 % (0.0-10.0); %Neutrophils 54.6 % (42.0-75.0); Hemoglobin 13.9 g/dL (12.0-16.0); Mean Corpuscular HGB CONC 32.6 g/dL (32.0-36.0); Mean Corpuscular Hemoglobin 27.9 pg (27.0-31.0); Mean Corpuscular Volume 85.5 fL (78.0-98.0); Mean Platelet Volume 8.6 fL (7.4-10.4); Platelet Count 298 thou/uL (130-400); RBC Distribution Width 12.2 % (11.5-14.5); White Blood Cell (WBC) Count 7.2 thou/uL (4.8-10.8)
[2021-08-02 05:28] LABS: ALT (SGPT) 294 U/L (8-55); AST (SGOT) 168 U/L (5-34); Albumin 3.7 g/dL (3.5-5.0); Alkaline Phosphatase 196 U/L (40-110); Anion Gap 14 mmol/L (10-20); BUN (Urea Nitrogen) 12 mg/dL (9.8-20.1); Bilirubin, Total 0.5 mg/dL (0.2-1.2); Calc. Creatinine Clearance 148 mL/min (70-130); Calcium 9.3 mg/dL (7.8-10.44); Carbon Dioxide 24 mmol/L (22-29); Cardiac Risk 6.9 (Less than 4.5); Chloride 104 mmol/L (98-107); Cholesterol 249 mg/dl (< 200 Desired); Globulin 3.4 g/dL (2.4-3.5); Glucose 100 mg/dL (70-105); HDL Cholesterol 36 mg/dL (>60 Neg Risk); LDL Cholesterol, Calculated 161 mg/dL; Potassium 3.5 mmol/L (3.5-5.1); Protein, Total 7.1 g/dL (6.0-8.3); Sodium 138 mmol/L (136-145); Triglycerides 260 mg/dL (Less than 150)
[2021-08-02] MEDS ORDERED: Lorazepam 1 MG TAB PO PRN (09:29)
[2021-08-02] MEDS: Enoxaparin Sodium 40 MG/0.4 ML SYRINGE SC SCH (10:34)
[2021-08-02] MEDS: Ascorbic Acid 500 mg Chewable Tablet PO SCH (10:35)
[2021-08-02] MEDS: Lisinopril 10 MG TAB PO SCH (10:35)
[2021-08-02] MEDS: Amlodipine 10 MG TAB PO SCH (10:36)
[2021-08-02] MEDS: Clopidogrel Bisulfate 75 MG TAB PO SCH (10:36)
[2021-08-02] MEDS: Zinc Sulfate 220 MG CAP PO SCH (10:37)
[2021-08-02] MEDS: Aspirin 81 mg Enteric Coated Tablet PO SCH (10:46)
[2021-08-02] MEDS: PARoxetine 20 MG TAB PO SCH (10:47)
[2021-08-02] MEDS ORDERED: Meclizine HCl 12.5 MG TAB PO PRN (16:16)
[2021-08-02] MEDS ORDERED: diphenhydrAMINE 25 MG CAP PO PRN (16:17)
[2021-08-02] MEDS: Cholecalciferol 1,000 UNITS (25 MCG) TAB PO SCH (20:16)
[2021-08-03] MEDS ORDERED: Melatonin 3 MG TAB PO PRN (00:27)
[2021-08-03] MEDS ORDERED: Ondansetron PF 4 MG/2 ML Vial IVP PRN (00:27)
[2021-08-03] MEDS: Acetaminophen 325 MG TAB PO PRN ×2 (01:09→22:01)
[2021-08-03] MEDS: Fluticasone Propionate Nasal Spray 16 gm Bottle NASAL SCH (11:56)
[2021-08-03] MEDS: Ascorbic Acid 500 mg Chewable Tablet PO SCH (11:57)
[2021-08-03] MEDS: PARoxetine 20 MG TAB PO SCH (11:57)
[2021-08-03] MEDS: Aspirin 81 mg Enteric Coated Tablet PO SCH (11:57)
[2021-08-03] MEDS: Zinc Sulfate 220 MG CAP PO SCH (11:58)
[2021-08-03] MEDS: Amlodipine 10 MG TAB PO SCH (11:58)
[2021-08-03] MEDS: Clopidogrel Bisulfate 75 MG TAB PO SCH (11:59)
[2021-08-03] MEDS: Lisinopril 10 MG TAB PO SCH (11:59)
[2021-08-03] MEDS: Enoxaparin Sodium 40 MG/0.4 ML SYRINGE SC SCH (12:01)
[2021-08-03 14:57] LABS: HBSAg Index 0.21 S/CO (0-0.99); Hep A IgM AB Non-Reactive (NonReactive); Hep A IgM S/CO 0.42 S/CO (0-0.79); Hep B Surf Ag Non-Reactive S/CO (NonReactive); Hep C IgG Ab Non-Reactive (NonReactive); Hep C Index 0.37 S/CO (0-0.79)
[2021-08-03 15:18] LABS: HBSAB Concentration 39.42 mIU/mL; Hep B Surf AB Reactive (NonReactive)
[2021-08-03] MEDS: Cholecalciferol 1,000 UNITS (25 MCG) TAB PO SCH (22:02)
[2021-08-04 04:51] LABS: #Basophils 0.1 thou/uL (0.0-0.2); #Eosinphils 0.6 thou/uL (0.0-0.7); #Lymphocytes 2.5 thou/uL (1.20-3.40); #Monocytes 0.8 thou/uL (0.11-0.59); #Neutrophils 4.7 thou/uL (1.40-6.50); %Basophils 1.2 % (0.0-1.0); %Eosinophils 6.7 % (0.0-10.0); %Monocytes 9.3 % (0.0-10.0); %Neutrophils 53.8 % (42.0-75.0); Hemoglobin 13.5 g/dL (12.0-16.0); Mean Corpuscular Hemoglobin 29.9 pg (27.0-31.0); Mean Corpuscular Volume 85.5 fL (78.0-98.0); Mean Platelet Volume 8.4 fL (7.4-10.4); Platelet Count 300 thou/uL (130-400); Red Blood Cell (RBC) Count 4.52 mill/uL (4.20-5.40); White Blood Cell (WBC) Count 8.7 thou/uL (4.8-10.8)
[2021-08-04 05:03] LABS: ALT (SGPT) 104 U/L (8-55); AST (SGOT) 19 U/L (5-34); Albumin 3.6 g/dL (3.5-5.0); Alkaline Phosphatase 149 U/L (40-110); Bilirubin, Direct 0.1 mg/dL (0.1-0.3); Bilirubin, Total 0.2 mg/dL (0.2-1.2); Protein, Total 6.3 g/dL (6.0-8.3)
[2021-08-04 05:11] LABS: Anion Gap 13 mmol/L (10-20); BUN (Urea Nitrogen) 17 mg/dL (9.8-20.1); Calc. Creatinine Clearance 130 mL/min (70-130); Calcium 9.1 mg/dL (7.8-10.44); Carbon Dioxide 24 mmol/L (22-29); Chloride 107 mmol/L (98-107); Glucose 110 mg/dL (70-105); Potassium 3.5 mmol/L (3.5-5.1); Sodium 140 mmol/L (136-145)
[2021-08-04] MEDS: Enoxaparin Sodium 40 MG/0.4 ML SYRINGE SC SCH (09:14)
[2021-08-04] MEDS: Ascorbic Acid 500 mg Chewable Tablet PO SCH (09:14)
[2021-08-04] MEDS: Fluticasone Propionate Nasal Spray 16 gm Bottle NASAL SCH (09:14)
[2021-08-04] MEDS: Zinc Sulfate 220 MG CAP PO SCH (09:15)
[2021-08-04] MEDS: Aspirin 81 mg Enteric Coated Tablet PO SCH (09:15)
[2021-08-04] MEDS: PARoxetine 20 MG TAB PO SCH (09:15)
[2021-08-04] MEDS: Clopidogrel Bisulfate 75 MG TAB PO SCH (09:15)
[2021-08-04] MEDS: Lisinopril 10 MG TAB PO SCH (09:15)
[2021-08-04] MEDS: Amlodipine 10 MG TAB PO SCH (09:15)
[2021-08-04] MEDS: Acetaminophen 500 MG TAB PO SCH (20:08)
[2021-08-04] MEDS: Cholecalciferol 1,000 UNITS (25 MCG) TAB PO SCH (20:09)
[2021-08-05 04:16] LABS: #Basophils 0.1 thou/uL (0.0-0.2); #Eosinphils 0.5 thou/uL (0.0-0.7); #Lymphocytes 2.4 thou/uL (1.20-3.40); #Monocytes 0.7 thou/uL (0.11-0.59); #Neutrophils 3.8 thou/uL (1.40-6.50); %Basophils 1.1 % (0.0-1.0); %Lymphocytes 32.2 % (21.0-51.0); %Monocytes 9.5 % (0.0-10.0); %Neutrophils 50.2 % (42.0-75.0); Hemoglobin 13.6 g/dL (12.0-16.0); Mean Corpuscular HGB CONC 34.1 g/dL (32.0-36.0); Mean Corpuscular Hemoglobin 29.2 pg (27.0-31.0); Mean Corpuscular Volume 85.5 fL (78.0-98.0); Mean Platelet Volume 7.7 fL (7.4-10.4); Platelet Count 303 thou/uL (130-400); Red Blood Cell (RBC) Count 4.67 mill/uL (4.20-5.40); White Blood Cell (WBC) Count 7.5 thou/uL (4.8-10.8)
[2021-08-05 04:36] LABS: Anion Gap 15 mmol/L (10-20); BUN (Urea Nitrogen) 14 mg/dL (9.8-20.1); Calc. Creatinine Clearance 117 mL/min (70-130); Calcium 9.2 mg/dL (7.8-10.44); Carbon Dioxide 21 mmol/L (22-29); Chloride 107 mmol/L (98-107); Glucose 116 mg/dL (70-105); Potassium 3.5 mmol/L (3.5-5.1); Sodium 139 mmol/L (136-145)
[2021-08-05 04:55] LABS: Free T4 (Free Thyroxine) 0.91 ng/dL (0.70-1.48); Thyroid Stimulating Hormone 0.8897 uIU/mL (0.35-4.94)
[2021-08-05] MEDS: Ascorbic Acid 500 mg Chewable Tablet PO SCH (09:23)
[2021-08-05] MEDS: Fluticasone Propionate Nasal Spray 16 gm Bottle NASAL SCH (09:23)
[2021-08-05] MEDS: Amlodipine 10 MG TAB PO SCH (09:24)
[2021-08-05] MEDS: Clopidogrel Bisulfate 75 MG TAB PO SCH (09:24)
[2021-08-05] MEDS: Enoxaparin Sodium 40 MG/0.4 ML SYRINGE SC SCH (09:24)
[2021-08-05] MEDS: Aspirin 81 mg Enteric Coated Tablet PO SCH (09:24)
[2021-08-05] MEDS: Lisinopril 10 MG TAB PO SCH (09:24)
[2021-08-05] MEDS: PARoxetine 20 MG TAB PO SCH (09:24)
[2021-08-05] MEDS: Zinc Sulfate 220 MG CAP PO SCH (09:24)
[2021-08-05] MEDS: Acetaminophen 500 MG TAB PO SCH (09:24)
[2021-08-05] MEDS ORDERED: Cyclobenzaprine 10 MG TAB PO SCH (13:45)
[2021-08-05] MEDS ORDERED: Ibuprofen 800 MG TAB PO SCH (14:00)
[2021-08-05 16:19] VITALS: BP 133/89; TEMP 98.6
[2021-08-05] MEDS ORDERED: Acetaminophen 500 MG TAB PO SCH (18:00)
[2021-08-05] MEDS ORDERED: traMADol HCl 50 MG TAB PO SCH (18:00)
[2021-08-06 20:07] LABS: Smooth Muscle Total ABS 10 Units (0-19)
[2021-08-07 12:13] LABS: Hep B Surface AG-Rflx Sendout Negative (Negative); Hepatitis B Core Total Positive (Negative); Hepatitis B Surface AB-Sendout Reactive (.)
[2021-08-08 04:37] LABS: Immunoglobulin - D 3.13 mg/dL (<14.11)
[2021-08-10 15:37] LABS: ANA Symphony (Qualitative) Negative (Negative); ANA Symphony (Quantitative) 0.3 Ratio (< 0.7 Negative); EliA Vaculitis New Method **** NEW METHOD ****; Mitochondrial Ab 1.5 U/mL (<4 Negative)
== END 2021-08-05 17:02 | disposition home or self-care (01) | DRG 149 ==
LOC: ERS 11:44 → ERHOLD 16:01 → 2NO 20:01 → OBSVTOIN 08-03 13:23
PROVIDERS: ADMIT Internal Medicine; ATTEND Internal Medicine
PROC: 8E0ZXY6 Isolation (ICD-10-PCS; principal; 2021-08-03)
DX: H83.09 Labyrinthitis, unspecified ear (principal); U07.1 COVID-19; G43.909 Migraine, unspecified, not intractable, without status migrainosus; I10 Essential (primary) hypertension; F31.9 Bipolar disorder, unspecified; R74.8 Abnormal levels of other serum enzymes; K76.0 Fatty (change of) liver, not elsewhere classified; E78.5 Hyperlipidemia, unspecified; Z86.73 Personal history of transient ischemic attack (TIA), and cerebral infarction without residual deficits; Z79.899 Other long term (current) drug therapy; Z79.82 Long term (current) use of aspirin; Z98.51 Tubal ligation status; Z90.49 Acquired absence of other specified parts of digestive tract; Z87.891 Personal history of nicotine dependence; Z80.0 Family history of malignant neoplasm of digestive organs
CPT/HCPCS: 36415; 70450; 70551; 71045; 76705; 80048; 80053; 80061; 80076; 80306; 80307; 81003; 81015; 82103; 82550; 82728; 83516; 83605; 83880; 84439; 84443; 84484; 85025; 85379; 85610; 85730; 86038; 86140; 86225; 86704; 86705; 86706; 86707; 86709; 86803; 87340; 87350; 93005; 93306; 94760; 96372; 96374; 96375; G0378; J0360; J1650; J2060; J2405; J7120; U0002

== ENCOUNTER 2021-08-14 17:25 | Emergency (ER) | payer OTHER ==
[2021-08-14] MEDS ORDERED: Metoclopramide HCl 10 MG/2 ML VIAL ONE (17:53)
[2021-08-14] MEDS ORDERED: Acetaminophen 500 MG TAB ONE (17:53)
[2021-08-14] MEDS ORDERED: Meclizine HCl 25 MG TAB ONE (17:53)
[2021-08-14 18:37] LABS: #Basophils 0.1 thou/uL (0.0-0.2); #Eosinphils 0.4 thou/uL (0.0-0.7); #Lymphocytes 1.9 thou/uL (1.20-3.40); #Monocytes 0.6 thou/uL (0.11-0.59); #Neutrophils 2.9 thou/uL (1.40-6.50); %Basophils 1.1 % (0.0-1.0); %Eosinophils 7.5 % (0.0-10.0); %Monocytes 10.3 % (0.0-10.0); %Neutrophils 49.2 % (42.0-75.0); Hemoglobin 13.9 g/dL (12.0-16.0); Mean Corpuscular HGB CONC 33.6 g/dL (32.0-36.0); Mean Corpuscular Hemoglobin 29.3 pg (27.0-31.0); Mean Corpuscular Volume 87.1 fL (78.0-98.0); Mean Platelet Volume 8.4 fL (7.4-10.4); Platelet Count 274 thou/uL (130-400); RBC Distribution Width 12.2 % (11.5-14.5); Red Blood Cell (RBC) Count 4.75 mill/uL (4.20-5.40)
[2021-08-14 18:42] LABS: ALT (SGPT) 54 U/L (8-55); AST (SGOT) 22 U/L (5-34); Alkaline Phosphatase 112 U/L (40-110); Anion Gap 9 mmol/L (10-20); BUN (Urea Nitrogen) 13 mg/dL (9.8-20.1); Bilirubin, Total 0.3 mg/dL (0.2-1.2); Calc. Creatinine Clearance 0 mL/min (70-130); Calcium 9.4 mg/dL (7.8-10.44); Carbon Dioxide 27 mmol/L (22-29); Chloride 108 mmol/L (98-107); Globulin 3.3 g/dL (2.4-3.5); Glucose 91 mg/dL (70-105); Potassium 3.7 mmol/L (3.5-5.1); Protein, Total 7.3 g/dL (6.0-8.3); Sodium 140 mmol/L (136-145)
[2021-08-14] MEDS ORDERED: Ketorolac Tromethamine 30 MG/ML VIAL ONE (19:53)
== END 2021-08-14 20:04 | disposition home or self-care (01) ==
LOC: ERS 17:25
DX: R51.9 Headache, unspecified (principal); R29.702 NIHSS score 2; I10 Essential (primary) hypertension; E78.5 Hyperlipidemia, unspecified; Z86.73 Personal history of transient ischemic attack (TIA), and cerebral infarction without residual deficits; Z87.891 Personal history of nicotine dependence; Z79.899 Other long term (current) drug therapy
CPT/HCPCS: 70450; 80053; 84484; 85025; 93005; 94760; 96374; 96375; J1885; J2765

== ENCOUNTER 2021-11-12 18:12 | Emergency (ER) | payer OTHER ==
[2021-11-12 18:49] LABS: #Basophils 0.1 thou/uL (0.0-0.2); #Eosinphils 0.5 thou/uL (0.0-0.7); #Lymphocytes 2.8 thou/uL (1.20-3.40); #Monocytes 0.8 thou/uL (0.11-0.59); #Neutrophils 4.2 thou/uL (1.40-6.50); %Eosinophils 5.5 % (0.0-10.0); %Lymphocytes 33.7 % (21.0-51.0); %Monocytes 9.6 % (0.0-10.0); %Neutrophils 50.2 % (42.0-75.0); Hemoglobin 13.6 g/dL (12.0-16.0); Mean Corpuscular HGB CONC 35.2 g/dL (32.0-36.0); Mean Corpuscular Hemoglobin 30.8 pg (27.0-31.0); Mean Corpuscular Volume 87.5 fL (78.0-98.0); Mean Platelet Volume 8.1 fL (7.4-10.4); Platelet Count 243 thou/uL (130-400); RBC Distribution Width 12.5 % (11.5-14.5); Red Blood Cell (RBC) Count 4.43 mill/uL (4.20-5.40); White Blood Cell (WBC) Count 8.3 thou/uL (4.8-10.8)
[2021-11-12 19:15] LABS: ALT (SGPT) 21 U/L (8-55); AST (SGOT) 14 U/L (5-34); Albumin 3.6 g/dL (3.5-5.0); Alkaline Phosphatase 107 U/L (40-110); Anion Gap 14 mmol/L (10-20); BUN (Urea Nitrogen) 13 mg/dL (9.8-20.1); Bilirubin, Total 0.3 mg/dL (0.2-1.2); CK (CPK) 88 U/L (29-168); Calc. Creatinine Clearance 0 mL/min (70-130); Calcium 8.6 mg/dL (7.8-10.44); Carbon Dioxide 22 mmol/L (22-29); Chloride 111 mmol/L (98-107); Globulin 3.1 g/dL (2.4-3.5); Glucose 111 mg/dL (70-105); Potassium 3.1 mmol/L (3.5-5.1); Protein, Total 6.7 g/dL (6.0-8.3); Sodium 144 mmol/L (136-145)
[2021-11-12] MEDS ORDERED: Potassium Chloride 20 MEQ TAB ONE (19:57)
== END 2021-11-12 20:38 | disposition home or self-care (01) ==
LOC: ERS 18:12
DX: T67.5XXA Heat exhaustion, unspecified, initial encounter (principal); Z86.73 Personal history of transient ischemic attack (TIA), and cerebral infarction without residual deficits; E78.5 Hyperlipidemia, unspecified; I10 Essential (primary) hypertension; Z87.891 Personal history of nicotine dependence; Z79.899 Other long term (current) drug therapy
CPT/HCPCS: 36415; 80053; 82550; 85025; 93005; 96360

== ENCOUNTER 2022-05-23 02:45 | Emergency (ER) | payer OTHER ==
[2022-05-23] MEDS ORDERED: Mag-Al 1200 mg/1200 mg/30 ML UDCUP ONE (03:23)
[2022-05-23] MEDS ORDERED: Ondansetron ODT 4 MG TAB ONE (03:23)
[2022-05-23] MEDS ORDERED: Lidocaine Viscous Sol 2% 15 ml UD Cup ONE (03:23)
[2022-05-23 04:16] LABS: Bacteria/HPF None Seen HPF (None Seen); Bilirubin Negative (Negative); Blood, Urine Trace (Negative); Clarity Clear (Clear); Glucose, Urine (Dipstick) Normal (Negative); Ketone, Urine Negative (Negative); Leukocyte Negative Leu/uL (Negative); Nitrite Negative (Negative); Protein, Urine (Dipstick) 10 mg/dL (Neg-Trace); Specific Gravity, Urine 1.021 (1.002-1.036); Squamous Epithelial 0-3 HPF (0-3); Urobilinogen Normal mg/dL (Less than 2); WBC/HPF 0-3 HPF (0-3); pH, Urine 6.5 (5.0-9.0)
[2022-05-23 05:05] LABS: #Eosinphils 0.3 thou/uL (0.0-0.7); #Lymphocytes 2.6 thou/uL (1.20-3.40); #Monocytes 0.7 thou/uL (0.11-0.59); #Neutrophils 5.2 thou/uL (1.40-6.50); %Basophils 0.5 % (0.0-1.0); %Eosinophils 3.6 % (0.0-10.0); %Lymphocytes 29.2 % (21.0-51.0); %Monocytes 7.6 % (0.0-10.0); %Neutrophils 59.1 % (42.0-75.0); Hemoglobin 13.7 g/dL (12.0-16.0); Mean Corpuscular HGB CONC 33.1 g/dL (32.0-36.0); Mean Corpuscular Hemoglobin 28.7 pg (27.0-31.0); Mean Corpuscular Volume 86.7 fl (78.0-98.0); Mean Platelet Volume 8.4 fL (7.4-10.4); Platelet Count 258 10x3/uL (130-400); RBC Distribution Width 12.6 % (11.5-14.5); Red Blood Cell (RBC) Count 4.75 mill/uL (4.20-5.40); White Blood Cell (WBC) Count 8.8 10x3/uL (4.8-10.8)
[2022-05-23 05:30] LABS: ALT (SGPT) 21 U/L (8-55); AST (SGOT) 14 U/L (5-34); Alkaline Phosphatase 109 U/L (40-110); Anion Gap 14 mmol/L (10-20); BUN (Urea Nitrogen) 11 mg/dL (9.8-20.1); Bilirubin, Total 0.4 mg/dL (0.2-1.2); Calc. Creatinine Clearance 0 mL/min (70-130); Calcium 9.6 mg/dL (7.8-10.44); Carbon Dioxide 22 mmol/L (22-29); Chloride 108 mmol/L (98-107); Estimated GFR 88; Globulin 2.9 g/dL (2.4-3.5); Glucose 111 mg/dL (70-105); Lipase 25 U/L (8-78); Potassium 3.8 mmol/L (3.5-5.1); Protein, Total 6.9 g/dL (6.0-8.3); Sodium 140 mmol/L (136-145)
== END 2022-05-23 07:12 | disposition home or self-care (01) ==
LOC: ERS 02:45
DX: R10.11 Right upper quadrant pain (principal); I10 Essential (primary) hypertension; E78.5 Hyperlipidemia, unspecified; Z87.891 Personal history of nicotine dependence
CPT/HCPCS: 36415; 71045; 74177; 80053; 81003; 81015; 83690; 84484; 85025; 93005; Q0162

== ENCOUNTER 2022-05-28 14:44 | Inpatient (IN) | payer OTHER ==
[~2022-05-28 14:44] MED LIST changes: -Iopamidol 370 76% 50 ML VIAL FS ONE; +Iopamidol-370 76% 500 ML 1 ML ONE
[2022-05-28 15:32] LABS: #Basophils 0.1 thou/uL (0.0-0.2); #Eosinphils 0.6 thou/uL (0.0-0.7); #Monocytes 0.6 thou/uL (0.11-0.59); #Neutrophils 4.7 thou/uL (1.40-6.50); %Basophils 1.2 % (0.0-1.0); %Eosinophils 7.4 % (0.0-10.0); %Lymphocytes 25.3 % (21.0-51.0); %Neutrophils 58.1 % (42.0-75.0); Hemoglobin 14.2 g/dL (12.0-16.0); Mean Corpuscular HGB CONC 33.7 g/dL (32.0-36.0); Mean Corpuscular Hemoglobin 29.7 pg (27.0-31.0); Mean Corpuscular Volume 87.9 fl (78.0-98.0); Mean Platelet Volume 8.5 fL (7.4-10.4); Platelet Count 256 10x3/uL (130-400); RBC Distribution Width 12.6 % (11.5-14.5); Red Blood Cell (RBC) Count 4.79 mill/uL (4.20-5.40)
[2022-05-28 15:42] LABS: INR-International Normal Ratio 0.8; PTT 23.2 sec (22.9-36.1); Prothrombin Time 11.9 sec (12.0-14.7)
[2022-05-28 15:49] LABS: ALT (SGPT) 19 U/L (8-55); AST (SGOT) 17 U/L (5-34); Albumin 4.2 g/dL (3.5-5.0); Alkaline Phosphatase 124 U/L (40-110); Anion Gap 14 mmol/L (10-20); BUN (Urea Nitrogen) 13 mg/dL (9.8-20.1); Bilirubin, Total 0.3 mg/dL (0.2-1.2); CK (CPK) 157 U/L (29-168); Calc. Creatinine Clearance 0 mL/min (70-130); Calcium 9.3 mg/dL (7.8-10.44); Carbon Dioxide 24 mmol/L (22-29); Chloride 107 mmol/L (98-107); Estimated GFR 89; Glucose 103 mg/dL (70-105); Potassium 3.5 mmol/L (3.5-5.1); Protein, Total 7.2 g/dL (6.0-8.3); Sodium 141 mmol/L (136-145)
[2022-05-28] MEDS ORDERED: Aspirin Chewable 81 MG TAB ONE (16:32)
[2022-05-28] MEDS ORDERED: HYDROcodone/Acetaminophen 5/325 mg Tablet PO PRN (18:21)
[2022-05-28] MEDS ORDERED: Ondansetron PF 4 MG/2 ML Vial IVP PRN (18:21)
[2022-05-28] MEDS ORDERED: Ondansetron ODT 4 MG TAB PO PRN (18:21)
[2022-05-28] MEDS ORDERED: hydrALAZINE 20 MG/ML VIAL SLOW IVP PRN (18:26)
[2022-05-28] MEDS ORDERED: Nicotine 14 MG PATCH TD SCH (18:30)
[2022-05-28] MEDS: Atorvastatin Calcium 40 MG TAB PO SCH (20:43)
[2022-05-28 21:03] VITALS: BMI 29.8
[2022-05-28 21:28] LABS: Troponin I 0.099 ng/mL (< 0.028)
[2022-05-28 23:26] LABS: Troponin I Less than 0.010 ng/mL (< 0.028)
[2022-05-29 01:48] LABS: Bacteria/HPF None Seen HPF (None Seen); Bilirubin Negative (Negative); Blood, Urine Negative (Negative); CAUTI Indications for Culture Alt mental st,lethar; Clarity Clear (Clear); Glucose, Urine (Dipstick) Normal (Negative); Ketone, Urine Negative (Negative); Leukocyte Negative Leu/uL (Negative); Nitrite Negative (Negative); Protein, Urine (Dipstick) Negative (Neg-Trace); RBC/HPF 0-3 HPF (0-3); Squamous Epithelial None Seen HPF (0-3); Urobilinogen Normal mg/dL (Less than 2); WBC/HPF 0-3 HPF (0-3)
[2022-05-29 01:50] LABS: Urine Culture Reflex No No
[2022-05-29 01:53] LABS: Amphetamine Detected (NotDetected); Barbiturates Screen Not Detected (NotDetected); Benzodiazepine Screen Not Detected (NotDetected); Cocaine Metabolite Screen Not Detected (NotDetected); Methadone Not Detected (NotDetected); Methamphetamine Detected (NotDetected); Opiate Screen Not Detected (NotDetected); Oxycodone Screen Not Detected (NotDetected); Phencyclidine (PCP) Not Detected (NotDetected); THC/Cannabinoid Screen Not Detected (NotDetected); Tricyclic Screen Not Detected (NotDetected)
[2022-05-29 02:43] LABS: SARS-CoV-2 NAA Rapid Test Not Detected (NotDetected)
[2022-05-29 05:42] LABS: #Basophils 0.1 thou/uL (0.0-0.2); #Eosinphils 0.6 thou/uL (0.0-0.7); #Lymphocytes 2.7 thou/uL (1.20-3.40); #Neutrophils 5.9 thou/uL (1.40-6.50); %Basophils 0.8 % (0.0-1.0); %Eosinophils 5.7 % (0.0-10.0); %Lymphocytes 26.6 % (21.0-51.0); %Monocytes 9.8 % (0.0-10.0); %Neutrophils 57.1 % (42.0-75.0); Hemoglobin 15.2 g/dL (12.0-16.0); Mean Corpuscular HGB CONC 33.5 g/dL (32.0-36.0); Mean Corpuscular Hemoglobin 29.7 pg (27.0-31.0); Mean Corpuscular Volume 88.5 fl (78.0-98.0); Mean Platelet Volume 8.7 fL (7.4-10.4); Platelet Count 252 10x3/uL (130-400); RBC Distribution Width 12.8 % (11.5-14.5); Red Blood Cell (RBC) Count 5.14 mill/uL (4.20-5.40); White Blood Cell (WBC) Count 10.3 10x3/uL (4.8-10.8)
[2022-05-29 06:13] LABS: Anion Gap 15 mmol/L (10-20); BUN (Urea Nitrogen) 12 mg/dL (9.8-20.1); Calc. Creatinine Clearance 133 mL/min (70-130); Calcium 9.5 mg/dL (7.8-10.44); Carbon Dioxide 25 mmol/L (22-29); Cardiac Risk 4.3 (Less than 4.5); Chloride 104 mmol/L (98-107); Cholesterol 196 mg/dl (< 200 Desired); Estimated GFR 92; Glucose 90 mg/dL (70-105); HDL Cholesterol 46 mg/dL (>60 Neg Risk); LDL Cholesterol, Calculated 112 mg/dL; Potassium 3.3 mmol/L (3.5-5.1); Sodium 141 mmol/L (136-145); Triglycerides 191 mg/dL (Less than 150)
[2022-05-29] MEDS ORDERED: Enoxaparin Sodium 40 MG/0.4 ML SYRINGE SC SCH (09:00)
[2022-05-29] MEDS: PARoxetine 20 MG TAB PO SCH (09:24)
[2022-05-29] MEDS: Aspirin 81 mg Enteric Coated Tablet PO SCH (09:24)
[2022-05-29] MEDS: Acetaminophen 325 MG TAB PO PRN (09:25)
[2022-05-29] MEDS ORDERED: Lorazepam 1 MG TAB PO PRN (10:54)
[2022-05-29] MEDS ORDERED: Ibuprofen 200 MG TAB PO PRN (10:59)
[2022-05-29] MEDS ORDERED: Electrolyte Replacement Protocol 1 EACH FS PRN (11:00)
[2022-05-29] MEDS ORDERED: Nicotine 14 MG PATCH TD PRN (12:23)
[2022-05-29] MEDS ORDERED: cloNIDine 0.1 MG TAB PO PRN (12:27)
[2022-05-29] MEDS ORDERED: Amlodipine 5 MG TAB PO SCH (12:30)
[2022-05-29] MEDS ORDERED: Potassium Chloride 20 MEQ TAB PO SCH (13:00)
[2022-05-29] MEDS ORDERED: Magnesium 2 GM/50 ML(in water) 2 GM in Premix Bag 1 BAG IVPB SCH (13:00)
[2022-05-29] MEDS ORDERED: Clopidogrel Bisulfate 75 MG TAB PO SCH (16:15)
[2022-05-29] MEDS ORDERED: Lisinopril 20 MG TAB PO SCH (16:30)
[2022-05-29 19:35] LABS: Potassium 3.7 mmol/L (3.5-5.1)
[2022-05-29] MEDS: Atorvastatin Calcium 40 MG TAB PO SCH (21:06)
[2022-05-29] MEDS: Amlodipine 5 MG TAB PO SCH (21:06)
[2022-05-30] MEDS ORDERED: Lisinopril 20 MG TAB PO SCH ×3 (09:00→17:45)
[2022-05-30] MEDS: Acetaminophen 325 MG TAB PO PRN (09:16)
[2022-05-30] MEDS: Amlodipine 5 MG TAB PO SCH (09:17)
[2022-05-30] MEDS: Aspirin 81 mg Enteric Coated Tablet PO SCH (09:17)
[2022-05-30] MEDS: Clopidogrel Bisulfate 75 MG TAB PO SCH (09:17)
[2022-05-30] MEDS: PARoxetine 20 MG TAB PO SCH ×2 (09:17→09:18)
[2022-05-30] MEDS: Atorvastatin Calcium 40 MG TAB PO SCH (22:07)
[2022-05-30] MEDS: Metoprolol Tartrate 25 MG TAB PO SCH (22:08)
[2022-05-31] MEDS: Clopidogrel Bisulfate 75 MG TAB PO SCH (08:36)
[2022-05-31] MEDS: Metoprolol Tartrate 25 MG TAB PO SCH ×2 (08:36→20:50)
[2022-05-31] MEDS: Lisinopril 20 MG TAB PO SCH (08:36)
[2022-05-31] MEDS: PARoxetine 20 MG TAB PO SCH (08:36)
[2022-05-31] MEDS: Aspirin 81 mg Enteric Coated Tablet PO SCH (08:36)
[2022-05-31] MEDS: Heparin 5,000 UNITS/ML VIAL SC SCH ×2 (08:38→20:52)
[2022-05-31] MEDS ORDERED: FLU VACC QS2022-23(6MOS UP)/PF 60 MCG/0.5 ML SYRINGE IM ONE (09:00)
[2022-05-31] MEDS ORDERED: Prevnar 13-Val Conj/PF 0.5 ML SYRINGE IM ONE (09:00)
[2022-05-31] MEDS ORDERED: Amlodipine 5 MG TAB PO SCH ×2 (09:00)
[2022-05-31] MEDS ORDERED: NIFEdipine XL 60 MG TAB PO SCH (11:30)
[2022-05-31] MEDS ORDERED: Loratadine 10 MG TAB PO SCH (12:15)
[2022-05-31] MEDS: Fioricet 325/50/40 mg Tablet PO PRN ×2 (12:57→20:51)
[2022-05-31] MEDS: Fluticasone Propionate Nasal Spray 16 gm Bottle NASAL SCH (12:58)
[2022-05-31] MEDS: Atorvastatin Calcium 40 MG TAB PO SCH (20:51)
[2022-06-01 05:24] LABS: #Basophils 0.1 thou/uL (0.0-0.2); #Eosinphils 0.3 thou/uL (0.0-0.7); #Lymphocytes 1.5 thou/uL (1.20-3.40); #Monocytes 0.7 thou/uL (0.11-0.59); %Eosinophils 3.3 % (0.0-10.0); %Lymphocytes 17.8 % (21.0-51.0); %Monocytes 7.6 % (0.0-10.0); %Neutrophils 70.3 % (42.0-75.0); Hemoglobin 14.8 g/dL (12.0-16.0); Mean Corpuscular HGB CONC 33.3 g/dL (32.0-36.0); Mean Corpuscular Hemoglobin 28.7 pg (27.0-31.0); Mean Corpuscular Volume 86.2 fl (78.0-98.0); Mean Platelet Volume 8.2 fL (7.4-10.4); Platelet Count 257 10x3/uL (130-400); RBC Distribution Width 12.4 % (11.5-14.5); Red Blood Cell (RBC) Count 5.14 mill/uL (4.20-5.40); White Blood Cell (WBC) Count 8.5 10x3/uL (4.8-10.8)
[2022-06-01 05:56] LABS: Anion Gap 12 mmol/L (10-20); BUN (Urea Nitrogen) 17 mg/dL (9.8-20.1); Calc. Creatinine Clearance 140 mL/min (70-130); Calcium 9.5 mg/dL (7.8-10.44); Carbon Dioxide 24 mmol/L (22-29); Chloride 105 mmol/L (98-107); Estimated GFR 98; Glucose 95 mg/dL (70-105); Potassium 3.9 mmol/L (3.5-5.1); Sodium 137 mmol/L (136-145)
[2022-06-01] MEDS: Clopidogrel Bisulfate 75 MG TAB PO SCH (08:23)
[2022-06-01] MEDS: Aspirin 81 mg Enteric Coated Tablet PO SCH (08:23)
[2022-06-01] MEDS: PARoxetine 20 MG TAB PO SCH (08:23)
[2022-06-01] MEDS: Metoprolol Tartrate 25 MG TAB PO SCH (08:23)
[2022-06-01] MEDS: Lisinopril 20 MG TAB PO SCH (08:23)
[2022-06-01] MEDS: Heparin 5,000 UNITS/ML VIAL SC SCH (08:24)
[2022-06-01] MEDS ORDERED: Loratadine 10 MG TAB PO SCH (09:00)
[2022-06-01] MEDS ORDERED: NIFEdipine XL 60 MG TAB PO SCH (09:00)
[2022-06-01 11:55] VITALS: BP 136/74; TEMP 98.8
[2022-06-01] MEDS: Fluticasone Propionate Nasal Spray 16 gm Bottle NASAL SCH (14:31)
== END 2022-06-01 15:00 | disposition home or self-care (01) | DRG 69 ==
LOC: ERS 14:44 → NEURO 17:32 → OBSVTOIN 05-30 16:39
PROVIDERS: ADMIT Internal Medicine; ATTEND Internal Medicine
DX: G45.9 Transient cerebral ischemic attack, unspecified (principal); I16.1 Hypertensive emergency; I69.954 Hemiplegia and hemiparesis following unspecified cerebrovascular disease affecting left non-dominant side; I50.32 Chronic diastolic (congestive) heart failure; I13.0 Hypertensive heart and chronic kidney disease with heart failure and stage 1 through stage 4 chronic kidney disease, or unspecified chronic kidney disease; E78.5 Hyperlipidemia, unspecified; F41.9 Anxiety disorder, unspecified; F31.9 Bipolar disorder, unspecified; G43.909 Migraine, unspecified, not intractable, without status migrainosus; E87.6 Hypokalemia; N18.2 Chronic kidney disease, stage 2 (mild); F90.9 Attention-deficit hyperactivity disorder, unspecified type; F17.210 Nicotine dependence, cigarettes, uncomplicated; Z79.899 Other long term (current) drug therapy; Z90.49 Acquired absence of other specified parts of digestive tract; Z98.51 Tubal ligation status
CPT/HCPCS: 36415; 36416; 70450; 70496; 70498; 70551; 71045; 80048; 80053; 80061; 80306; 81001; 82550; 83735; 84484; 85025; 85610; 85730; 93005; 96365; 96372; G0378; J1644; J1650; J3475; Q9967

== ENCOUNTER 2022-11-07 19:00 | Emergency (ER) | payer OTHER ==
[2022-11-07 20:25] LABS: #Basophils 0.1 thou/uL (0.0-0.2); #Eosinphils 0.2 thou/uL (0.0-0.7); #Monocytes 0.9 thou/uL (0.11-0.59); #Neutrophils 3.8 thou/uL (1.40-6.50); %Eosinophils 2.9 % (0.0-10.0); %Lymphocytes 30.8 % (21.0-51.0); %Monocytes 12.3 % (0.0-10.0); %Neutrophils 52.7 % (42.0-75.0); Mean Corpuscular HGB CONC 31.7 g/dL (32.0-36.0); Mean Corpuscular Hemoglobin 26.8 pg (27.0-31.0); Mean Corpuscular Volume 84.5 fl (78.0-98.0); Mean Platelet Volume 10.6 fL (7.4-10.4); Platelet Count 238 10x3/uL (130-400); RBC Distribution Width 13.9 % (11.5-14.5); White Blood Cell (WBC) Count 7.2 10x3/uL (4.8-10.8)
[2022-11-07 20:34] LABS: BHCG - Serum Negative (NEGATIVE); Pregs Control Background? CLEAR/WHITE (CLR/WHITE); Pregs Control Bar Appear? YES (CONTROL BAR)
[2022-11-07] MEDS ORDERED: Prochlorperazine 10 MG/2 ML VIAL IVP SCH (21:00)
[2022-11-07 21:15] LABS: ALT (SGPT) 28 U/L (8-55); AST (SGOT) 21 U/L (5-34); Albumin 4.1 g/dL (3.5-5.0); Alkaline Phosphatase 108 U/L (40-110); Anion Gap 18 mmol/L (10-20); BUN (Urea Nitrogen) 12 mg/dL (9.8-20.1); Bilirubin, Total 0.3 mg/dL (0.2-1.2); Calc. Creatinine Clearance 0 mL/min (70-130); Calcium 9.2 mg/dL (7.8-10.44); Carbon Dioxide 21 mmol/L (22-29); Chloride 106 mmol/L (98-107); Estimated GFR 83; Globulin 3.4 g/dL (2.4-3.5); Glucose 89 mg/dL (70-105); Lipase 39 U/L (8-78); Potassium 3.9 mmol/L (3.5-5.1); Protein, Total 7.5 g/dL (6.0-8.3); Sodium 141 mmol/L (136-145)
[2022-11-07] MEDS ORDERED: diphenhydrAMINE 50 MG/ML VIAL ONE (21:16)
[2022-11-07] MEDS ORDERED: Ketorolac Tromethamine 30 MG/ML VIAL ONE (21:16)
[2022-11-07] MEDS ORDERED: Magnesium 2 GM/50 ML BAG (IN WATER) ONE (21:16)
[2022-11-07] MEDS ORDERED: Metoclopramide HCl 10 MG/2 ML VIAL ONE (21:16)
[2022-11-07 22:58] LABS: SARS-CoV-2 NAA Rapid Test Not Detected (NotDetected)
== END 2022-11-07 23:33 | disposition home or self-care (01) ==
LOC: ERS 19:00
DX: G43.909 Migraine, unspecified, not intractable, without status migrainosus (principal); B34.9 Viral infection, unspecified; Z20.822 Contact with and (suspected) exposure to COVID-19; Z87.891 Personal history of nicotine dependence
CPT/HCPCS: 36415; 71045; 80053; 83605; 83690; 84703; 85025; 93005; J0780; J1200; J1885; J2765; J3475

== ENCOUNTER 2022-11-08 08:17 | Emergency (ER) | payer OTHER ==
[2022-11-08] MEDS ORDERED: Acetaminophen 500 MG TAB ONE (08:37)
[2022-11-08] MEDS ORDERED: Metoclopramide HCl 10 MG/2 ML VIAL ONE (09:01)
[2022-11-08] MEDS ORDERED: diphenhydrAMINE 50 MG/ML VIAL ONE (09:01)
[2022-11-08 09:34] LABS: Bilirubin Negative (Negative); Blood, Urine Trace (Negative); Clarity Turbid (Clear); Glucose, Urine (Dipstick) Normal (Negative); Ketone, Urine Negative (Negative); Leukocyte 75 Leu/uL (Negative); Nitrite Negative (Negative); Protein, Urine (Dipstick) 30 mg/dL (Neg-Trace); RBC/HPF 0-3 HPF (0-3); Specific Gravity, Urine 1.021 (1.002-1.036); Squamous Epithelial Greater than 50 HPF (0-3); Urobilinogen Normal mg/dL (Less than 2); pH, Urine 6.5 (5.0-9.0)
[2022-11-08 09:36] LABS: Bacteria/HPF 1+ HPF (None Seen)
[2022-11-08 10:13] LABS: #Basophils 0.1 thou/uL (0.0-0.2); #Eosinphils 0.3 thou/uL (0.0-0.7); #Monocytes 0.8 thou/uL (0.11-0.59); #Neutrophils 4.4 thou/uL (1.40-6.50); %Basophils 0.9 % (0.0-1.0); %Eosinophils 3.2 % (0.0-10.0); %Lymphocytes 28.1 % (21.0-51.0); %Monocytes 10.4 % (0.0-10.0); Hemoglobin 14.2 g/dL (12.0-16.0); Mean Corpuscular HGB CONC 32.3 g/dL (32.0-36.0); Mean Corpuscular Hemoglobin 27.4 pg (27.0-31.0); Mean Corpuscular Volume 84.9 fl (78.0-98.0); Mean Platelet Volume 10.9 fL (7.4-10.4); Platelet Count 249 10x3/uL (130-400); RBC Distribution Width 13.8 % (11.5-14.5); Red Blood Cell (RBC) Count 5.18 mill/uL (4.20-5.40); White Blood Cell (WBC) Count 7.7 10x3/uL (4.8-10.8)
[2022-11-08 10:32] LABS: ALT (SGPT) 30 U/L (8-55); AST (SGOT) 22 U/L (5-34); Alkaline Phosphatase 105 U/L (40-110); Anion Gap 15 mmol/L (10-20); BUN (Urea Nitrogen) 12 mg/dL (9.8-20.1); Bilirubin, Total 0.4 mg/dL (0.2-1.2); Calc. Creatinine Clearance 0 mL/min (70-130); Carbon Dioxide 19 mmol/L (22-29); Chloride 110 mmol/L (98-107); Estimated GFR 84; Globulin 3.3 g/dL (2.4-3.5); Glucose 98 mg/dL (70-105); Potassium 3.9 mmol/L (3.5-5.1); Protein, Total 7.3 g/dL (6.0-8.3); Sodium 140 mmol/L (136-145)
[2022-11-08] MEDS ORDERED: Dexamethasone 10 MG/ML VIAL ONE (11:12)
== END 2022-11-08 11:52 | disposition home or self-care (01) ==
LOC: ERS 08:17
DX: R51.9 Headache, unspecified (principal); N39.0 Urinary tract infection, site not specified; E78.5 Hyperlipidemia, unspecified; I10 Essential (primary) hypertension; Z87.891 Personal history of nicotine dependence; Z79.899 Other long term (current) drug therapy
CPT/HCPCS: 36415; 70450; 71045; 80053; 81003; 81015; 83605; 83690; 84443; 84484; 84703; 85025; 87086; 93005; 96365; 96366; 96368; 96375; J0780; J1100; J1200; J1885; J2765; J3475

== ENCOUNTER 2022-12-13 01:36 | Emergency (ER) | payer OTHER ==
[2022-12-13] MEDS ORDERED: Ketorolac Tromethamine 30 MG/ML VIAL ONE (02:28)
[2022-12-13] MEDS ORDERED: fentaNYL 50 mcg/mL 1 mL Vial ONE (02:29)
== END 2022-12-13 08:12 | disposition home or self-care (01) ==
LOC: ERS 01:36
DX: S82.142A Displaced bicondylar fracture of left tibia, initial encounter for closed fracture (principal); E78.5 Hyperlipidemia, unspecified; I10 Essential (primary) hypertension; W01.0XXA Fall on same level from slipping, tripping and stumbling without subsequent striking against object, initial encounter; Z79.899 Other long term (current) drug therapy; Z87.891 Personal history of nicotine dependence
CPT/HCPCS: 96372; J1885; J3010

== ENCOUNTER 2023-03-10 21:35 | Observation (INO) | payer OTHER ==
[2023-03-10] MEDS ORDERED: Nitroglycerin 2% Ointment 1 INCH/1 GM Packet ONE (22:04)
[2023-03-10 22:25] LABS: #Basophils 0.1 thou/uL (0.0-0.2); #Eosinphils 0.2 thou/uL (0.0-0.7); #Monocytes 0.7 thou/uL (0.11-0.59); #Neutrophils 7.5 thou/uL (1.40-6.50); %Eosinophils 2.1 % (0.0-10.0); %Lymphocytes 18.5 % (21.0-51.0); %Neutrophils 71.1 % (42.0-75.0); Hematocrit 41.3 % (36.0-47.0); Hemoglobin 13.9 g/dL (12.0-16.0); Mean Corpuscular HGB CONC 33.7 g/dL (32.0-36.0); Mean Corpuscular Hemoglobin 28.4 pg (27.0-31.0); Mean Corpuscular Volume 84.3 fl (78.0-98.0); Mean Platelet Volume 10.9 fL (7.4-10.4); Platelet Count 277 10x3/uL (130-400); RBC Distribution Width 13.8 % (11.5-14.5); White Blood Cell (WBC) Count 10.5 10x3/uL (4.8-10.8)
[2023-03-10 22:52] LABS: ALT (SGPT) 21 U/L (8-55); AST (SGOT) 21 U/L (5-34); Albumin 4.2 g/dL (3.5-5.0); Alkaline Phosphatase 125 U/L (40-110); Anion Gap 17 mmol/L (10-20); BUN (Urea Nitrogen) 19 mg/dL (9.8-20.1); Bilirubin, Total 0.4 mg/dL (0.2-1.2); Calc. Creatinine Clearance 0 mL/min (70-130); Calcium 9.9 mg/dL (7.8-10.44); Carbon Dioxide 23 mmol/L (22-29); Chloride 108 mmol/L (98-107); Estimated GFR 37; Globulin 3.8 g/dL (2.4-3.5); Glucose 126 mg/dL (70-105); Sodium 144 mmol/L (136-145)
[2023-03-10 22:54] LABS: Troponin I 0.011 ng/mL (< 0.028)
[2023-03-11] MEDS ORDERED: Morphine 4 MG/ML VIAL ONE (00:20)
[2023-03-11] MEDS ORDERED: Acetaminophen 325 MG TAB PO PRN (00:37)
[2023-03-11] MEDS ORDERED: Ondansetron ODT 4 MG TAB PO PRN (00:37)
[2023-03-11] MEDS ORDERED: Acetaminophen 650 MG Suppository PR PRN (00:37)
[2023-03-11] MEDS ORDERED: Ondansetron PF 4 MG/2 ML Vial IVP PRN (00:37)
[2023-03-11] MEDS ORDERED: Sodium Chloride 0.9% 1,000 ML IV SCH (01:45)
[2023-03-11 02:03] LABS: Troponin I 0.011 ng/mL (< 0.028)
[2023-03-11 02:21] VITALS: BMI 34.1
[2023-03-11 04:10] LABS: #Basophils 0.1 thou/uL (0.0-0.2); #Eosinphils 0.3 thou/uL (0.0-0.7); #Monocytes 0.8 thou/uL (0.11-0.59); %Eosinophils 3.2 % (0.0-10.0); %Lymphocytes 24.9 % (21.0-51.0); %Monocytes 8.7 % (0.0-10.0); %Neutrophils 61.8 % (42.0-75.0); Hematocrit 37.4 % (36.0-47.0); Hemoglobin 12.2 g/dL (12.0-16.0); Mean Corpuscular HGB CONC 32.6 g/dL (32.0-36.0); Mean Corpuscular Hemoglobin 28.4 pg (27.0-31.0); Mean Platelet Volume 10.6 fL (7.4-10.4); Platelet Count 223 10x3/uL (130-400); RBC Distribution Width 13.9 % (11.5-14.5); Red Blood Cell (RBC) Count 4.29 mill/uL (4.20-5.40); White Blood Cell (WBC) Count 9.7 10x3/uL (4.8-10.8)
[2023-03-11 04:19] LABS: Mean Corpuscular Volume 87.2 fl (78.0-98.0)
[2023-03-11 04:33] LABS: Anion Gap 11 mmol/L (10-20); BUN (Urea Nitrogen) 21 mg/dL (9.8-20.1); Calc. Creatinine Clearance 92 mL/min (70-130); Calcium 8.8 mg/dL (7.8-10.44); Carbon Dioxide 25 mmol/L (22-29); Chloride 109 mmol/L (98-107); Estimated GFR 54; Glucose 102 mg/dL (70-105); Potassium 3.5 mmol/L (3.5-5.1); Sodium 141 mmol/L (136-145)
[2023-03-11 04:39] LABS: Troponin I Less than 0.010 ng/mL (< 0.028)
[2023-03-11] MEDS ORDERED: Aspirin 81 mg Enteric Coated Tablet PO SCH (09:00)
[2023-03-11] MEDS: Nitroglycerin 0.4 MG TAB (25 Tab Bottle) SL PRN (10:41)
[2023-03-11] MEDS ORDERED: Heparin 10,000 UNITS/ 10 ML VIAL SLOW IVP SCH (10:45)
[2023-03-11] MEDS ORDERED: Heparin 25,000 units/D5W 500 ML IVPB SCH (10:45)
[2023-03-11 10:56] LABS: Hematocrit 36.9 % (36.0-47.0); Platelet Count 217 10x3/uL (130-400)
[2023-03-11 11:25] LABS: Troponin I Less than 0.010 ng/mL (< 0.028)
[2023-03-11 15:39] LABS: Bacteria/HPF None Seen HPF (None Seen); Bilirubin Negative (Negative); Blood, Urine Negative (Negative); Clarity Clear (Clear); Glucose, Urine (Dipstick) Normal (Negative); Ketone, Urine Negative (Negative); Leukocyte Negative Leu/uL (Negative); Nitrite Negative (Negative); Protein, Urine (Dipstick) Negative (Neg-Trace); RBC/HPF 0-3 HPF (0-3); Specific Gravity, Urine 1.023 (1.002-1.036); Squamous Epithelial 0-3 HPF (0-3); Urobilinogen Normal mg/dL (Less than 2); WBC/HPF 0-3 HPF (0-3); pH, Urine 5.5 (5.0-9.0)
[2023-03-11 15:44] LABS: Amphetamine Detected (NotDetected); Barbiturates Screen Not Detected (NotDetected); Benzodiazepine Screen Not Detected (NotDetected); Cocaine Metabolite Screen Not Detected (NotDetected); Methadone Not Detected (NotDetected); Methamphetamine Detected (NotDetected); Opiate Screen Detected (NotDetected); Oxycodone Screen Not Detected (NotDetected); Phencyclidine (PCP) Not Detected (NotDetected); THC/Cannabinoid Screen Not Detected (NotDetected); Tricyclic Screen Not Detected (NotDetected)
[2023-03-11 17:04] LABS: Troponin I Less than 0.010 ng/mL (< 0.028)
[2023-03-11] MEDS: Clopidogrel Bisulfate 75 MG TAB PO SCH (18:18)
[2023-03-11] MEDS: Atorvastatin Calcium 40 MG TAB PO SCH (20:51)
[2023-03-11] MEDS: Metoprolol Tartrate 25 MG TAB PO SCH (20:51)
[2023-03-11] MEDS: Morphine 4 MG/ML VIAL SLOW IVP PRN (20:52)
[2023-03-11 22:45] LABS: Troponin I Less than 0.010 ng/mL (< 0.028)
[2023-03-12 03:52] LABS: #Basophils 0.1 thou/uL (0.0-0.2); #Eosinphils 0.3 thou/uL (0.0-0.7); #Monocytes 0.5 thou/uL (0.11-0.59); #Neutrophils 2.9 thou/uL (1.40-6.50); %Basophils 1.8 % (0.0-1.0); %Eosinophils 5.4 % (0.0-10.0); %Lymphocytes 31.2 % (21.0-51.0); %Neutrophils 52.2 % (42.0-75.0); Hematocrit 37.7 % (36.0-47.0); Hemoglobin 12.3 g/dL (12.0-16.0); Mean Corpuscular HGB CONC 32.6 g/dL (32.0-36.0); Mean Corpuscular Hemoglobin 27.9 pg (27.0-31.0); Mean Corpuscular Volume 85.5 fl (78.0-98.0); Mean Platelet Volume 10.4 fL (7.4-10.4); Platelet Count 217 10x3/uL (130-400); RBC Distribution Width 13.6 % (11.5-14.5); Red Blood Cell (RBC) Count 4.41 mill/uL (4.20-5.40); White Blood Cell (WBC) Count 5.6 10x3/uL (4.8-10.8)
[2023-03-12 04:16] LABS: Anion Gap 11 mmol/L (10-20); BUN (Urea Nitrogen) 16 mg/dL (9.8-20.1); Calc. Creatinine Clearance 137 mL/min (70-130); Carbon Dioxide 24 mmol/L (22-29); Chloride 109 mmol/L (98-107); Estimated GFR 88; Glucose 97 mg/dL (70-105); Potassium 3.6 mmol/L (3.5-5.1); Sodium 140 mmol/L (136-145)
[2023-03-12 04:25] LABS: Troponin I Less than 0.010 ng/mL (< 0.028)
[2023-03-12] MEDS: NIFEdipine XL 60 MG TAB PO SCH (09:37)
[2023-03-12] MEDS: Aspirin Chewable 81 MG TAB PO SCH (09:37)
[2023-03-12] MEDS: Metoprolol Tartrate 25 MG TAB PO SCH (09:37)
[2023-03-12] MEDS: Clopidogrel Bisulfate 75 MG TAB PO SCH (09:37)
[2023-03-12] MEDS: Nitroglycerin 0.4 MG TAB (25 Tab Bottle) SL PRN ×2 (11:33→11:43)
[2023-03-12 13:14] LABS: Troponin I Less than 0.010 ng/mL (< 0.028)
[2023-03-12 16:06] LABS: Troponin I Less than 0.010 ng/mL (< 0.028)
[2023-03-12 20:31] LABS: Troponin I Less than 0.010 ng/mL (< 0.028)
[2023-03-12] MEDS: Atorvastatin Calcium 40 MG TAB PO SCH (21:30)
[2023-03-12] MEDS ORDERED: HYDROcodone/Acetaminophen 5/325 mg Tablet PO SCH (22:15)
[2023-03-13] MEDS ORDERED: Morphine 2 MG/ML VIAL SLOW IVP SCH (02:00)
[2023-03-13 04:49] LABS: #Basophils 0.1 thou/uL (0.0-0.2); #Eosinphils 0.4 thou/uL (0.0-0.7); #Monocytes 0.6 thou/uL (0.11-0.59); %Lymphocytes 25.7 % (21.0-51.0); %Monocytes 9.2 % (0.0-10.0); %Neutrophils 57.8 % (42.0-75.0); Hematocrit 39.2 % (36.0-47.0); Hemoglobin 13.1 g/dL (12.0-16.0); Mean Corpuscular HGB CONC 33.4 g/dL (32.0-36.0); Mean Corpuscular Hemoglobin 28.2 pg (27.0-31.0); Mean Corpuscular Volume 84.3 fl (78.0-98.0); Mean Platelet Volume 10.6 fL (7.4-10.4); Platelet Count 218 10x3/uL (130-400); RBC Distribution Width 13.5 % (11.5-14.5); Red Blood Cell (RBC) Count 4.65 mill/uL (4.20-5.40); White Blood Cell (WBC) Count 6.9 10x3/uL (4.8-10.8)
[2023-03-13 05:11] LABS: Anion Gap 12 mmol/L (10-20); BUN (Urea Nitrogen) 15 mg/dL (9.8-20.1); Calc. Creatinine Clearance 146 mL/min (70-130); Calcium 9.5 mg/dL (7.8-10.44); Carbon Dioxide 22 mmol/L (22-29); Chloride 106 mmol/L (98-107); Estimated GFR 95; Glucose 96 mg/dL (70-105); Potassium 3.4 mmol/L (3.5-5.1); Sodium 137 mmol/L (136-145)
[2023-03-13] MEDS: Clopidogrel Bisulfate 75 MG TAB PO SCH (08:45)
[2023-03-13] MEDS: Aspirin Chewable 81 MG TAB PO SCH (08:45)
[2023-03-13] MEDS: NIFEdipine XL 60 MG TAB PO SCH (08:45)
[2023-03-13] MEDS: Morphine 4 MG/ML VIAL SLOW IVP PRN (11:33)
[2023-03-13] MEDS: Atorvastatin Calcium 40 MG TAB PO SCH (21:35)
[2023-03-14 04:48] LABS: #Basophils 0.1 thou/uL (0.0-0.2); #Eosinphils 0.4 thou/uL (0.0-0.7); #Monocytes 0.7 thou/uL (0.11-0.59); #Neutrophils 4.5 thou/uL (1.40-6.50); %Basophils 0.8 % (0.0-1.0); %Eosinophils 5.4 % (0.0-10.0); %Lymphocytes 24.3 % (21.0-51.0); %Neutrophils 60.2 % (42.0-75.0); Hematocrit 39.8 % (36.0-47.0); Hemoglobin 13.2 g/dL (12.0-16.0); Mean Corpuscular HGB CONC 33.2 g/dL (32.0-36.0); Mean Corpuscular Volume 84.5 fl (78.0-98.0); Mean Platelet Volume 10.8 fL (7.4-10.4); Platelet Count 228 10x3/uL (130-400); RBC Distribution Width 13.6 % (11.5-14.5); Red Blood Cell (RBC) Count 4.71 mill/uL (4.20-5.40); White Blood Cell (WBC) Count 7.5 10x3/uL (4.8-10.8)
[2023-03-14 05:08] LABS: Anion Gap 14 mmol/L (10-20); BUN (Urea Nitrogen) 18 mg/dL (9.8-20.1); Calc. Creatinine Clearance 132 mL/min (70-130); Calcium 9.8 mg/dL (7.8-10.44); Carbon Dioxide 23 mmol/L (22-29); Chloride 107 mmol/L (98-107); Estimated GFR 84; Glucose 101 mg/dL (70-105); Potassium 3.5 mmol/L (3.5-5.1); Sodium 140 mmol/L (136-145)
[2023-03-14 08:16] VITALS: BP 121/81; TEMP 98.2
[2023-03-14] MEDS: NIFEdipine XL 60 MG TAB PO SCH (09:02)
[2023-03-14] MEDS: Clopidogrel Bisulfate 75 MG TAB PO SCH (09:02)
[2023-03-14] MEDS: Aspirin Chewable 81 MG TAB PO SCH (09:02)
== END 2023-03-14 10:56 | disposition home or self-care (01) ==
LOC: ERS 21:35 → 2NO 23:50 → OBSVTOIN 03-11 10:57 → INTOOBSV 03-11 10:57
PROVIDERS: ADMIT Student in an Organized Health Care Education/Training Program; ATTEND Emergency Medicine
DX: R07.89 Other chest pain (principal); F41.9 Anxiety disorder, unspecified; N17.9 Acute kidney failure, unspecified; I10 Essential (primary) hypertension; E78.5 Hyperlipidemia, unspecified; I25.118 Atherosclerotic heart disease of native coronary artery with other forms of angina pectoris; I63.9 Cerebral infarction, unspecified; R53.1 Weakness; N28.9 Disorder of kidney and ureter, unspecified; I73.9 Peripheral vascular disease, unspecified; F15.10 Other stimulant abuse, uncomplicated; F31.9 Bipolar disorder, unspecified; G43.909 Migraine, unspecified, not intractable, without status migrainosus; Z79.82 Long term (current) use of aspirin; Z79.899 Other long term (current) drug therapy; Z98.51 Tubal ligation status; Z90.49 Acquired absence of other specified parts of digestive tract; Z98.890 Other specified postprocedural states; Z79.02 Long term (current) use of antithrombotics/antiplatelets; Z95.5 Presence of coronary angioplasty implant and graft
CPT/HCPCS: 36415; 36416; 71045; 76770; 80048; 80053; 80306; 81001; 83880; 84484; 85025; 85730; 93005; 93010; 96374; J1644; J2270; J2272; J7050; Q0162

== ENCOUNTER 2023-04-04 11:24 | Emergency (ER) | payer OTHER ==
[2023-04-04 12:04] LABS: #Basophils 0.1 thou/uL (0.0-0.2); #Eosinphils 0.3 thou/uL (0.0-0.7); #Monocytes 0.7 thou/uL (0.11-0.59); #Neutrophils 4.1 thou/uL (1.40-6.50); %Basophils 1.1 % (0.0-1.0); %Lymphocytes 26.8 % (21.0-51.0); %Monocytes 9.3 % (0.0-10.0); %Neutrophils 58.5 % (42.0-75.0); Hemoglobin 13.1 g/dL (12.0-16.0); Mean Corpuscular HGB CONC 33.6 g/dL (32.0-36.0); Mean Corpuscular Hemoglobin 28.6 pg (27.0-31.0); Mean Corpuscular Volume 85.2 fl (78.0-98.0); Mean Platelet Volume 10.6 fL (7.4-10.4); Platelet Count 262 10x3/uL (130-400); RBC Distribution Width 13.9 % (11.5-14.5); Red Blood Cell (RBC) Count 4.58 mill/uL (4.20-5.40)
[2023-04-04 12:32] LABS: ALT (SGPT) 15 U/L (8-55); AST (SGOT) 15 U/L (5-34); Albumin 3.8 g/dL (3.5-5.0); Alkaline Phosphatase 120 U/L (40-110); Anion Gap 14 mmol/L (10-20); BUN (Urea Nitrogen) 21 mg/dL (9.8-20.1); Bilirubin, Total 0.3 mg/dL (0.2-1.2); Calc. Creatinine Clearance 0 mL/min (70-130); Calcium 9.6 mg/dL (7.8-10.44); Carbon Dioxide 23 mmol/L (22-29); Chloride 108 mmol/L (98-107); Estimated GFR 76; Globulin 2.9 g/dL (2.4-3.5); Glucose 99 mg/dL (70-105); Protein, Total 6.7 g/dL (6.0-8.3); Sodium 141 mmol/L (136-145)
[2023-04-04 12:52] LABS: Acetaminophen Less than 10 mcg/mL (10.0-30.0); Alcohol Less than 10.0 mg/dL (Less than 10); Salicylate Less than 8.0 mg/dL (15.0-30.0)
[2023-04-04 12:56] LABS: Troponin I Less than 0.010 ng/mL (< 0.028)
[2023-04-04] MEDS ORDERED: Aspirin Chewable 81 MG TAB ONE ×2 (13:37→13:42)
[2023-04-04] MEDS ORDERED: Clopidogrel Bisulfate 75 MG TAB ONE (13:37)
[2023-04-04 15:21] LABS: Troponin I Less than 0.010 ng/mL (< 0.028)
[2023-04-04] MEDS ORDERED: Ondansetron PF 4 MG/2 ML Vial ONE (15:34)
[2023-04-04 16:13] LABS: Amphetamine Detected (NotDetected); Barbiturates Screen Not Detected (NotDetected); Benzodiazepine Screen Not Detected (NotDetected); Cocaine Metabolite Screen Not Detected (NotDetected); Methadone Not Detected (NotDetected); Methamphetamine Not Detected (NotDetected); Opiate Screen Not Detected (NotDetected); Oxycodone Screen Not Detected (NotDetected); Phencyclidine (PCP) Not Detected (NotDetected); THC/Cannabinoid Screen Not Detected (NotDetected); Tricyclic Screen Not Detected (NotDetected)
== END 2023-04-04 15:41 | disposition home or self-care (01) ==
LOC: ERS 11:24
DX: R07.89 Other chest pain (principal); I10 Essential (primary) hypertension; E78.5 Hyperlipidemia, unspecified; G43.909 Migraine, unspecified, not intractable, without status migrainosus; Z86.73 Personal history of transient ischemic attack (TIA), and cerebral infarction without residual deficits; Z87.891 Personal history of nicotine dependence; Z79.899 Other long term (current) drug therapy; Z79.82 Long term (current) use of aspirin
CPT/HCPCS: 36415; 71045; 80053; 80306; 80307; 84484; 85025; 93005; 96374; J2405

== ENCOUNTER 2023-04-17 11:41 | Emergency (ER) | payer OTHER ==
[2023-04-17 14:14] LABS: #Basophils 0.1 thou/uL (0.0-0.2); #Eosinphils 0.6 thou/uL (0.0-0.7); #Monocytes 0.5 thou/uL (0.11-0.59); #Neutrophils 5.4 thou/uL (1.40-6.50); %Basophils 0.6 % (0.0-1.0); %Eosinophils 6.6 % (0.0-10.0); %Lymphocytes 21.6 % (21.0-51.0); %Monocytes 5.4 % (0.0-10.0); %Neutrophils 65.6 % (42.0-75.0); Hematocrit 37.2 % (36.0-47.0); Hemoglobin 12.1 g/dL (12.0-16.0); Mean Corpuscular HGB CONC 32.5 g/dL (32.0-36.0); Mean Corpuscular Hemoglobin 28.3 pg (27.0-31.0); Mean Corpuscular Volume 86.9 fl (78.0-98.0); Platelet Count 227 10x3/uL (130-400); RBC Distribution Width 14.5 % (11.5-14.5); Red Blood Cell (RBC) Count 4.28 mill/uL (4.20-5.40); White Blood Cell (WBC) Count 8.3 10x3/uL (4.8-10.8)
[2023-04-17 14:40] LABS: ALT (SGPT) 16 U/L (8-55); AST (SGOT) 16 U/L (5-34); Albumin 4.1 g/dL (3.5-5.0); Alkaline Phosphatase 109 U/L (40-110); Anion Gap 10 mmol/L (10-20); BUN (Urea Nitrogen) 10 mg/dL (9.8-20.1); Bilirubin, Total 0.4 mg/dL (0.2-1.2); Calc. Creatinine Clearance 0 mL/min (70-130); Calcium 9.4 mg/dL (7.8-10.44); Carbon Dioxide 29 mmol/L (22-29); Chloride 108 mmol/L (98-107); Estimated GFR 81; Globulin 2.7 g/dL (2.4-3.5); Glucose 131 mg/dL (70-105); Potassium 3.2 mmol/L (3.5-5.1); Protein, Total 6.8 g/dL (6.0-8.3); Sodium 144 mmol/L (136-145)
[2023-04-17 14:44] LABS: Troponin I Less than 0.010 ng/mL (< 0.028)
[2023-04-17] MEDS ORDERED: Potassium Chloride 20 MEQ TAB ONE (15:07)
== END 2023-04-17 15:15 | disposition home or self-care (01) ==
LOC: ERS 11:41
DX: R07.9 Chest pain, unspecified (principal); F41.9 Anxiety disorder, unspecified; E87.6 Hypokalemia; E78.5 Hyperlipidemia, unspecified; I10 Essential (primary) hypertension; Z86.73 Personal history of transient ischemic attack (TIA), and cerebral infarction without residual deficits; Z87.891 Personal history of nicotine dependence; Z79.899 Other long term (current) drug therapy; Z79.82 Long term (current) use of aspirin
CPT/HCPCS: 36415; 71045; 80053; 84484; 85025; 93005

== ENCOUNTER 2023-05-28 12:47 | Emergency (ER) | payer OTHER | END 2023-05-28 14:07 | LOC: EEVIPCON 12:47 → ERS 12:47 | DX: Z71.1 Person with feared health complaint in whom no diagnosis is made (principal); E78.5 Hyperlipidemia, unspecified; I10 Essential (primary) hypertension; Z87.891 Personal history of nicotine dependence; Z86.73 Personal history of transient ischemic attack (TIA), and cerebral infarction without residual deficits; Z79.82 Long term (current) use of aspirin; Z79.899 Other long term (current) drug therapy | CPT/HCPCS: 71045 ==

== ENCOUNTER 2025-03-21 17:50 | Emergency (ER) | payer OTHER ==
[2025-03-21 18:23] LABS: #Basophils 0.11 10x3/uL (0.0-0.2); #Eosinophils 0.53 10x3/uL (0.0-0.7); #Monocytes 0.66 10x3/uL (0.11-0.59); #Neutrophils 4.50 10x3/uL (1.40-6.50); %Basophils 1.3 % (0.0-1.0); %Eosinophils 6.4 % (0.0-10.0); %Lymphocytes 30.1 % (21.0-51.0); %Monocytes 7.9 % (0.0-10.0); %Neutrophils 53.9 % (42.0-75.0); Hematocrit 38.8 % (36.0-47.0); Hemoglobin 13.0 g/dL (12.0-16.0); Mean Corpuscular Hemoglobin 27.8 pg (27.0-31.0); Mean Corpuscular Volume 82.9 fL (78.0-98.0); Platelet Count 288 10x3/uL (130-400); Red Blood Cell (RBC) Count 4.68 mill/uL (4.20-5.40); White Blood Cell (WBC) Count 8.34 10x3/uL (4.8-10.8)
[2025-03-21 18:45] LABS: ALT (SGPT) 24 U/L (Less than 34); AST (SGOT) 26 U/L (11-34); Albumin 3.7 g/dL (3.1-4.5); Alkaline Phosphatase 107 U/L (40-110); Anion Gap 14 mmol/L (10-20); BUN (Urea Nitrogen) 14 mg/dL (9.8-20.1); Bilirubin, Total 0.2 mg/dL (0.3-1.2); Calc. Creatinine Clearance 0 mL/min (70-130); Calcium 9.5 mg/dL (7.8-10.44); Carbon Dioxide 21 mmol/L (22-29); Globulin 3.4 g/dL (2.4-3.5); Glucose 102 mg/dL (70-105); Potassium 3.4 mmol/L (3.5-5.1)
[2025-03-21 19:20] LABS: Chloride 108 mmol/L (98-107); Sodium 140 mmol/L (136-145)
[2025-03-21] MEDS ORDERED: hydrALAZINE 20 MG/ML VIAL ONE (20:03)
== END 2025-03-21 20:34 | disposition home or self-care (01) ==
LOC: ERS 17:50
DX: J45.909 Unspecified asthma, uncomplicated (principal); I10 Essential (primary) hypertension; Z87.891 Personal history of nicotine dependence; Z86.73 Personal history of transient ischemic attack (TIA), and cerebral infarction without residual deficits
CPT/HCPCS: 71045; 80053; 83880; 84484; 85025; 87428; 93005; 96374; 96375; J0360; J2919

== ENCOUNTER 2025-04-04 12:28 | Emergency (ER) | payer MEDICAID, OTHER ==
[2025-04-04] MEDS ORDERED: Ketorolac Tromethamine 30 MG (1 mL) VIAL ONE (13:23)
== END 2025-04-04 14:53 | disposition home or self-care (01) ==
LOC: ERS 12:28
DX: M54.41 Lumbago with sciatica, right side (principal); I10 Essential (primary) hypertension; Z86.73 Personal history of transient ischemic attack (TIA), and cerebral infarction without residual deficits; Z87.891 Personal history of nicotine dependence
CPT/HCPCS: 72100; 96372; 99283; J1885; J2270

== ENCOUNTER 2025-04-06 07:00 | Emergency (ER) | payer MEDICAID | END 2025-04-06 07:11 | LOC: ERS 07:00 | DX: Z53.21 Procedure and treatment not carried out due to patient leaving prior to being seen by health care provider (principal) ==

== ENCOUNTER 2025-04-20 14:59 | Emergency (ER) | payer OTHER ==
[2025-04-20 16:52] LABS: #Basophils 0.06 10x3/uL (0.0-0.2); #Eosinophils 0.27 10x3/uL (0.0-0.7); #Monocytes 0.67 10x3/uL (0.11-0.59); #Neutrophils 6.21 10x3/uL (1.40-6.50); %Basophils 0.6 % (0.0-1.0); %Eosinophils 2.9 % (0.0-10.0); %Lymphocytes 22.4 % (21.0-51.0); %Monocytes 7.2 % (0.0-10.0); %Neutrophils 66.5 % (42.0-75.0); Hematocrit 41.5 % (36.0-47.0); Hemoglobin 14.1 g/dL (12.0-16.0); Mean Corpuscular Hemoglobin 27.9 pg (27.0-31.0); Mean Corpuscular Volume 82.2 fL (78.0-98.0); Platelet Count 261 10x3/uL (130-400); Red Blood Cell (RBC) Count 5.05 mill/uL (4.20-5.40); White Blood Cell (WBC) Count 9.34 10x3/uL (4.8-10.8)
[2025-04-20] MEDS ORDERED: Ketorolac Tromethamine 30 MG (1 mL) VIAL ONE (16:53)
[2025-04-20] MEDS ORDERED: Dexamethasone 10 MG/ML VIAL ONE (16:53)
[2025-04-20 17:16] LABS: ALT (SGPT) 35 U/L (Less than 34); AST (SGOT) 17 U/L (11-34); Acetaminophen Less than 10 mcg/mL (Less than 10); Albumin 3.7 g/dL (3.1-4.5); Alkaline Phosphatase 113 U/L (40-110); Anion Gap 13 mmol/L (10-20); BUN (Urea Nitrogen) 16 mg/dL (9.8-20.1); Bilirubin, Total 0.4 mg/dL (0.3-1.2); Calc. Creatinine Clearance 0 mL/min (70-130); Calcium 9.2 mg/dL (7.8-10.44); Carbon Dioxide 27 mmol/L (22-29); Chloride 107 mmol/L (98-107); Globulin 3.3 g/dL (2.4-3.5); Glucose 90 mg/dL (70-105); Potassium 3.3 mmol/L (3.5-5.1); Salicylate Less than 8.0 mg/dL (Less than 8.0); Sodium 144 mmol/L (136-145)
== END 2025-04-20 17:51 | disposition home or self-care (01) ==
LOC: ERS 14:59
DX: M54.50 Low back pain, unspecified (principal); G89.29 Other chronic pain; E87.6 Hypokalemia; I10 Essential (primary) hypertension; Z55.6 Problems related to health literacy; Z87.891 Personal history of nicotine dependence
CPT/HCPCS: 36415; 80053; 80307; 85025; 93005; 96372; 99283; J1100; J1885